=== PATIENT | female | born 2000 | race Caucasian/White ===

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

== ENCOUNTER → 2022-02-23 10:47 | Outpatient (BNVA) | payer SELFPAY | PROVIDERS: PCP Pediatrics | DX: Z29.14 Encounter for prophylactic rabies immune globulin (principal); Z20.3 Contact with and (suspected) exposure to rabies ==

== ENCOUNTER → 2023-10-24 13:08 | Outpatient (BNVA) | payer SELFPAY | PROVIDERS: PCP Pediatrics | DX: Z02.83 Encounter for blood-alcohol and blood-drug test (principal) ==

== ENCOUNTER 2024-05-04 16:04 | Emergency (ER) | payer OTHER, SELFPAY ==
[2024-05-04 16:22] VITALS: BP 154/108; PULSE 115; RESP 22; TEMP 36.9; O2SAT 100; BMI 28.0
--- NOTE | 2024-05-04 16:27 | ECG_ITS ---
Test Reason : chest pain Blood Pressure : */* mmHG Vent. Rate : 95 BPM Atrial Rate : 95 BPM P-R Int : 112 ms QRS Dur : 72 ms QT Int : 346 ms P-R-T Axes : 69 -3 32 degrees QTcB Int : 434 ms Normal sinus rhythm Nonspecific ST abnormality Abnormal ECG When compared with ECG of 06-Jul-2020 11:19, No significant change was found Referred By: Generic ED Physician Electronically Signed By: EMPERATRIZ ROUSE MD
--- NOTE | 2024-05-04 16:37 | PC.NURSE ---
While pt getting blood work mom reports pt has h/o of bipolar and appears manic ?increasing in meds. Pt did denies SI or HI in triage
[2024-05-04 16:47] LABS: MANUAL DIFF FLAG NO
[2024-05-04 16:49] LABS: Basophils Absolute Auto 0.1 X10*3/uL (0.0-0.2); Basophils Percent Auto 0.6 % (0-2); Eosinophils Absolute Auto 0.1 X10*3/uL (0.0-0.4); Eosinophils Percent Auto 0.6 % (0-4); Hematocrit 43.1 % (37.0-47.0); Hemoglobin 15.1 g/dl (12.0-16.0); Imm Gran Abs Auto 0.04 X10*3/uL (0.00-0.03); Imm Gran Pct Auto 0.4 % (0.0-0.4); Lymphocytes Percent Auto 31.3 % (20-40); Mean Corpuscular Hemoglobin 29.2 pg (27.0-33.0); Mean Corpuscular Volume 83.4 fL (80.0-98.0); Mean Platelet Volume 8.8 fL (9.4-12.3); Monocytes Absolute Auto 0.8 X10*3/uL (0.1-1.2); Monocytes Percent Auto 8.1 % (2-11); Neutrophils Absolute Auto 5.6 x10*3/uL (2.0-8.3); Platelet Count 387 X10*3/uL (160-400); Red Blood Count 5.17 X10*6/uL (4.20-5.50); Red Cell Distribution Width 12.3 % (11.0-16.0); White Blood Count 9.6 X10*3/uL (4.8-10.8)
[2024-05-04 16:54] LABS: INTERNATIONAL NORM RATIO 1.1 (0.9-1.1); Prothrombin Time 12.8 SEC (10.9-12.4)
[2024-05-04 17:07] LABS: Anion Gap 15 (12-20); Blood Urea Nitrogen 10 mg/dL (9-16); Calcium 10.2 mg/dL (8.4-10.2); Carbon Dioxide 21 mmol/L (22-29); Chloride 105 mmol/L (96-108); Creatinine Clr Calc Pharmacy 86.6; Estimated Glomerular Filt Rate > 60; Glucose Random 87 mg/dL (60-115); Potassium 3.7 mmol/L (3.3-5.1); Sodium 137 mmol/L (135-145)
[2024-05-04 17:21] LABS: Troponin-I High Sensitivity < 2.7 ng/L (<3.5-17.0)
--- OUTSIDE RECORDS SUMMARY | 2024-05-04 18:54 | XMS_ITS | Clinical Summary ---
Author Organization [facility] ity Address [address] [place] [address] Care Team Providers Care Manager Of Change Name Role Phone Baljit Mccann MD Primary Care Provider [phone] Social History Tobacco Use Types Packs/Day Years Used Date Smoking Tobacco: Never Assessed Comments Unknown Sex and Gender Information Value Date Recorded Sex Assigned at Not on file Legal Sex Female 8:41 PM EST Gender Identity Not on file Sexual Orientation Not on file Plan of Treatment Health Maintenance Due Date Last Done Comments Gonorrhea/Chlamydia Screening 2001 HPV Vaccines (1 - 3-dose series) 2016 Meningococcal B Vacine (1 of 2 - Standard) 2017 DTaP,Tdap,and Td Vaccines (1 - Tdap) 2020 Hepatitis B Vaccines (1 of 3 - 19+ 3-dose series) 2020 Cervical Cancer Screening: P ap Smear 2022 Depression Screening 04/15/2023 HIV Screening 04/15/2023 Hepatitis C Screening 04/15/2023 Social Influencers of Health Screening 04/15/2023 COVID-19 Vaccine ( - 2023-2 5 season) 2023 Influenza Vaccine (#1) 2023 HIB Vaccines Aged Out No longer eligi ble based on patient's age to complete this topic Hepatitis A Vaccines Aged Out No long er eligible based on patient's age to complete this topic IPV Vaccines Aged Out No longer eligi ble based on patient's age to complete this topic MMR Vaccines Aged Out No longer eligi ble based on patient's age to complete this topic Meningococcal ACWY Vaccine Aged Out N o longer eligible based on patient's age to complete this topic Pneumococcal Vaccine: Pediat rics (0 to 5 Years) and At-Risk Patients (6 to 64 Years) Aged Out No longer eligible b ased on patient's age to complete this topic RSV Immunization Patients Un igor 20 months Aged Out No longer eligible b ased on patient's age to complete this topic Varicella Vaccines Aged Out No longer eligible based on patient's age to complete this topic Care Teams Manager Of Change Relationship Specialty Start Date End Date Baljit Mccann MD [address] [place] [id number] PCP - General 07/14/22
--- OUTSIDE RECORDS SUMMARY | 2024-05-04 18:54 | XMS_ITS | Clinical Summary ---
Author Organization [facility] Address [address] [place] [address] Care Team Providers Care Health Worker Name Role Phone Unavailable Primary Care Provider Unavailabl e Social History Tobacco Use Types Packs/Day Years Used Date Smoking Tobacco: Never Assessed Sex and Gender Information Value Date Recorded Sex Assigned at Female 05/12/2022 9:53 AM EST Gender Identity Female 05/12/2022 9:53 AM EST Sexual Orientation Not on file Job Start Date Occupation Industry Not on file Not on file Not on file Plan of Treatment Health Maintenance Due Date Last Done Comments Hepatitis B Vaccines (1 of 3 - 3-dose series) 2001 Hepatitis C Screening 2001 COVID-19 Vaccine (#1) 02/05/2002 Depression Screening 2013 Gonorrhea and Chlamydia Screening 2014 Preventative Health Evaluation 08/06/2019 Cervical Cancer Screening (Pap Smear) 2022 DTap / Tdap / Td (7 - Td or Tdap) 12/22/2022 12/22/2012, 07/15/2006, 12/30/2003, Additional history exists Influenza Vaccine (#1) 2023 03/29/2018, 2012 Pneumococcal Vaccine Completed 03/29/2003, 12/01/19 03 RSV Ped < 20 months Aged Out No longe r eligible based on patient's age to complete this topic
== END 2024-05-04 19:37 | disposition left against medical advice (07) ==
PROVIDERS: Physician Assistant; Emergency Provider Emergency Medicine
DX: R07.89 Other chest pain (principal); R06.02 Shortness of breath; Z79.899 Other long term (current) drug therapy
CPT/HCPCS: 36415; 80048; 84484; 85025; 85610; 93005; 99283

== ENCOUNTER → 2024-05-04 16:27 | Outpatient (BNV) | payer SELFPAY | PROVIDERS: Emergency Provider Emergency Medicine; Visit Provider Internal Medicine Cardiovascular Disease | DX: R94.31 Abnormal electrocardiogram [ECG] [EKG] (principal); R07.9 Chest pain, unspecified | CPT/HCPCS: 93010 ==

== ENCOUNTER 2024-05-12 07:51 | Inpatient (IN) | payer OTHER, SELFPAY ==
[2024-05-12 08:03] VITALS: BP 124/80; PULSE 121; O2SAT 98; BMI 26.5
[2024-05-12 08:21] VITALS: BP 149/93; PULSE 125; RESP 20; TEMP 36.5; O2SAT 99
--- NOTE | 2024-05-12 08:34 | ED_ITS ---
HPI - Psych General Chief Complaint: Psychiatric Symptoms Stated Complaint: SEC 12,NON STS BIPOLAR MANIC STATE 4/5D PER EMS Time Seen by Provider: 05/12/24 08:25 Source: patient, EMS, RN notes reviewed and old records reviewed Mode of arrival: EMS Limitations: no limitations History of Present Illness ED Provider: VON MONSIVAIS PA-C HPI Narrative: 23 year old female with pmhx significant for bipolar 2 disorder presents to the ED today via EMS on a section 12 for evaluation of jean. Patient states she is all over the place . Her mother is concerned and therefore called EMS this morning. States she is compliant with all home medications however did not get a chance to take her morning meds today. She denies SI. Admits she occasionally thinks about harming her boyfriend however would only bite his hand . Denies AH/VH/TH. Denies ilicit substance use. Denies etoh consumption. Denies any physical complaints. Related Data Home Medications ?Medication ?Instructions ?Recorded ?Confirmed clonazepam 0.5 mg tablet 0.5 - 1 mg PO DAILY PRN panic 05/12/24 05/12/24 attack lurasidone 60 mg tablet 60 mg PO QAM 05/12/24 05/12/24 Allergies Allergy/AdvReac Type Severity Reaction Status Date / Time No Known Allergies Allergy Verified 05/12/24 08:08 Review of Systems 2 Review of Systems: Yes all other systems are reviewed and are negative PMFSH Past Medical History Attestation statement: The following information was validated with the patient. Source: old records reviewed and nursing notes reviewed Medical History Self-harm Suicide attempt PTSD (post-traumatic stress disorder) Anxiety Depression Social History Social History Household Members: Family Household Members Other:: mom dad brother Housing: House Do you presently have visiting nurse or other home services: No Alcohol intake: current Alcohol intake frequency: holidays/special occasions only Alcohol type: hard liquor Comment: Q 15 safety checks Patient Tobacco Use Status: Never used Tobacco Years Smoked: 3 Smoked in Last 30 Days: No Second Hand Smoke Exposure: No Use of substances other than those prescribed or required for medical reasons: No Substance Use Type: Hallucinogens and Marijuana Advance Directives: No Advance Directives Information Provided: No Patient : No service: No Sexual orientation: Bisexual Physical Exam 2 Vital Signs: Vital Signs: Last Vital Signs Temp 97.9 F 05/12/24 09:18 Pulse 127 H 05/12/24 09:18 Resp 20 05/12/24 08:21 BP 151/84 H 05/12/24 09:18 Pulse Ox 97 05/12/24 09:18 O2 Del Method Room Air 05/12/24 09:18 BMI result Body Mass Index 26.5 hypertensive, tachycardic General: appears manic, pacing around the behavioral unit Skin: Warm, dry, intact. No rashes or lesions. Head: Normocephalic, atraumatic. EENT: Hearing is intact b/l. Conjunctiva clear. PERRLA. EOM intact. Moist mucous membranes.? Cardiac: Chest wall symmetric. RRR Lungs: Normal respiratory effort without accessory muscle use. CTA bilaterally. Abdomen: Soft, non-tender, non-distended Back: No midline spinous or paraspinal tenderness. No step off deformity. Ext: Upper and lower extremities atraumatic, without tenderness, deformity, swelling or erythema Neuro: AOx3. CN 2-12 grossly intact. Ambulating with steady gait. Psych: labile affect Course Course Course Narrative: 0950 -- CBC without leukocytosis or left shift. No anemia. H&H stable. Chemistry without acute electrolyte abnormality requiring intervention. no kay. liver function at baseline. Urine with trace leukocytes, 3-5 squamous epithelial cells, trace bacteria. Negative nitrites. Patient does not endorse any urinary symptoms. Will await culture for treatment. Urine negative. Urine toxicology positive for THC, otherwise negative. Undetectable salicylates, acetaminophen and ethanol. > medicated with 1mg of Klonopin on arrival > at this point, patient is medically cleared. placed in physician observation. care team evaluation pending. 1231 -- I spoke with amy from care team. patient will be inpatient bed search for acute manic episode. Medications Administered Discontinued Medications Generic Name Dose Route Start Last Admin Trade Name Freq PRN Reason Stop Dose Admin Clonazepam 1 mg 05/12/24 08:35 05/12/24 08:41 Clonazepam 1 Mg Tablet PO 05/12/24 08:36 1 mg ONCE ONE Administration Clonazepam 0.5 mg 05/12/24 12:19 05/12/24 12:22 Clonazepam 0.5 Mg Tablet PO 05/12/24 12:20 0.5 mg ONCE ONE Administration Medical Decision Making Medical Decision Making [facility] Narrative: 23 year old female with pmhx significant for bipolar 2 disorder, PTSD, anxiety, depression presents to the ED today via EMS on a section 12 for evaluation of jean. patient is hypertensive and tachycardic. she is manic appearing, pacing around the behavioral pod. labile affect. exam otherwise benign. Differential diagnosis includes anemia, electrolyte abnormality, urinary tract infection, jean, bipolar disorder, medication not compliance Plan for medical clearance and care team evaluation. Differential Diagnosis Differential Diagnoses: The differential diagnosis associated with the presentation includes as above. Admission/Observation Consideration of admission/observation: Escalation of care including admission/observation considered Lab Data [facility] Lab Attestation statement: I reviewed the patient's lab results. as above. 05/12/24 09:33 05/12/24 09:33 Labs: Lab Results 05/12/24 05/12/24 Range/Units 08:28 09:33 WBC 10.8 (4.8-10.8) X10*3/uL RBC 4.99 (4.20-5.50) X10*6/uL Hgb 14.8 (12.0-16.0) g/dl Hct 41.8 (37.0-47.0) % MCV 83.8 (80.0-98.0) fL MCH 29.7 (27.0-33.0) pg MCHC 35.4 H (31.0-35.0) g/dl RDW 12.2 (11.0-16.0) % Plt Count 356 (160-400) X10*3/uL MPV 8.9 L (9.4-12.3) fL Immature Gran % (Auto) 0.5 H (0.0-0.4) % Neut % (Auto) 71.6 (45-73) % Lymph % (Auto) 20.6 (20-40) % Bradford % (Auto) 6.3 (2-11) % Eos % (Auto) 0.4 (0-4) % Baso % (Auto) 0.6 (0-2) % Lymph # (Auto) 2.2 (1.2-4.9) X10*3/uL Bradford # (Auto) 0.7 (0.1-1.2) X10*3/uL Eos # (Auto) 0.0 (0.0-0.4) X10*3/uL Baso # (Auto) 0.1 (0.0-0.2) X10*3/uL Abs Immat Gran (auto) 0.05 H (0.00-0.03) X10*3/uL Absolute Neuts (auto) 7.8 (2.0-8.3) x10*3/uL Absolute Nucleated RBC 0.000 (0.0-0.012) X10*3/uL Nucleated RBC % (auto) 0.0 (0.0-0.2) /100WBC Sodium 139 (135-145) mmol/L Potassium 3.8 (3.3-5.1) mmol/L Chloride 108 (96-108) mmol/L Carbon Dioxide 21 L (22-29) mmol/L Anion Gap 14 (12-20) BUN 9 (9-16) mg/dL Creatinine 0.91 (0.5-1.4) mg/dL Estim Creat Clear Calc 86.3 Estimated GFR > 60 Random Glucose 88 (60-115) mg/dL Calcium 9.7 (8.4-10.2) mg/dL Total Bilirubin 0.5 (0.0-1.0) mg/dL AST 33 H (5-31) U/L ALT 22 (0-31) U/L Alkaline Phosphatase 83 (39-117) U/L Total Protein 7.9 (6.5-8.0) g/dL Albumin 4.9 (3.5-5.0) g/dL Urine Color Yellow Urine Appearance Clear Urine pH 6.0 (5.0-9.0) Ur Specific Buchanan 1.020 (1.005-1.025) Urine Protein Negative (Neg-Trace) mg/dL Urine Glucose (UA) Negative (Negative) mg/dL Urine Ketones 40 (Negative) mg/dL Urine Blood Negative (Negative) Urine Nitrite Negative (Negative) Ur Leukocyte Esterase Trace H (Negative) Urine RBC 0-2 (0-2) /HPF Urine WBC 0-5 (0-5) /HPF Ur Squamous Epith Cells 3-5 (0-2) /HPF Urine Bacteria Trace (None Seen) Hyaline Casts 0-2 (0-2) /LPF Urine Test NEGATIVE (NEGATIVE) Salicylates < 5.0 L (15-30) mg/dL Urine Opiates Screen Not Detected (Not Detect) Ur Buprenorphine Scrn Not Detected (Not Detect) ng/mL Ur Oxycodone Screen Not Detected (Not Detect) ng/mL Urine Methadone Screen Not Detected (Not Detect) ng/mL Urine Fentanyl Screen Not Detected (Not Detect) Acetaminophen < 3 (<30) mcg/mL Ur Barbiturates Screen Not Detected (Not Detect) Ur Phencyclidine Scrn Not Detected (Not Detect) Ur Amphetamines Screen Not Detected (Not Detect) U Benzodiazepines Scrn Not Detected (Not Detect) Urine Cocaine Screen Not Detected (Not Detect) U Marijuana (THC) Screen POSITIVE H (Not Detect) Ethyl Alcohol < 10 mg/dL Independent Historian Clinical information obtained from an independent historian. History obtained from or confirmed by: EMS External Record Review External record reviewed: Inpatient record Chronic Conditions Patient?s care impacted by: Other (bipolar 1, ptsd, anxiety, depression) Social Determinants Patient?s care significantly limited by Social Determinants of Health including: Other Social Determinant of Health Critical Care Time Critical Care Time Critical Care Time: No Discharge Plan Discharge Clinical Impression: Bipolar I disorder with jean Patient Disposition: Still a Patient Prescriptions: No Action clonazepam 0.5 mg tablet 0.5 - 1 mg PO DAILY PRN (Reason: panic attack) lurasidone 60 mg tablet 60 mg PO QAM Interventions: [place]-Suicide Risk Severity Scale Last Done: 05/12/24 08:21 Print Language: Georgian
[2024-05-12 08:37] LABS: UPreg QC Valid YES
[2024-05-12 08:39] LABS: Appearance Urine Clear; Color Urine Yellow; Glucose Urine UA Negative (Negative); Leukocyte Esterase Urine Trace (Negative); Nitrite Urine Negative (Negative); UMIC TRIGGER UACC YES; Urine Blood Negative (Negative); Urine Ketones 40 mg/dL (Negative); Urine Pregnancy NEGATIVE (NEGATIVE); Urine Protein Negative (Neg-Trace)
[2024-05-12 08:41] LABS: Bacteria Urine Trace (None Seen); Hyaline Casts Urine 0-2 /LPF (0-2); RBC Urine 0-2 /HPF (0-2); WBC Urine 0-5 /HPF (0-5)
[2024-05-12] MEDS: clonazePAM 1 MG TABLET PO (08:41)
--- NOTE | 2024-05-12 08:43 | PC.NURSE ---
Patient has come into ED by EMS on section 12 from [facility]. She appears in a manic state, she is hyperverbal, poor boundaries, and pacing. She is compliant with requests, is showing tachycardia. Patient reports she takes Klonopin for sleep. PA ordered Klonopin and patient took willingly. Patient is pacing around, going into rooms. Patient is easily redirectable verbally. Patient is aware of plan of care for blood work and care team evaluation. Patient said I want to kill my boyfriend sometimes ugh I just want to squeeze him. And Patient also stated They are testing my rubix cube for cocaine . Thought process appears non linear at this time. She denies SI /AH/VH.
--- OUTSIDE RECORDS SUMMARY | 2024-05-12 08:44 | XMS_ITS | Patient Health Record ---
Author Organization [facility] Address [address] [place] [id number] Care Team Providers Care Restaurant Front Manager Name Role Phone Simran Pierre ND Unavailable [phone] Allergies Allergen (clinical drug ingredient) Drug/Non Drug Allergy documented on EMR Reaction Allergy Type Onset Date Status lactose Lactose (Intolerance) Unknown Drug Allergy Active Reason For Referral No Information Medications Medication SIG (Take, Route, Frequency, Duration) Notes Start Date End Date Status Lexapro 10 MG 1 tablet Orally Once a day Not-Taking Wellbutrin XL 300 MG 1 tablet in the mor juan Orally Once a day Active Spironolactone 25 MG 1 tablet Orally Active OLANZapine 5 MG 1 tablet Orally Once a day Not-Taking Nexplanon 68 MG as directed Subcutaneous Active Abilify 10 MG 1 tablet Orally Once a day 7mg Active Immunizations Vaccine Route Administration Date Status Comme nts Moderna Covid-19 Vaccine Unknown 07/19/2020 Administere d Moderna Covid-19 Vaccine Unknown 08/16/2020 Administere d Problems Problem Type SNOMED Code ICD Code Onset Dates Problem Status W/U Status Risk Notes Problem Vitamin D deficiency (85662983) Vitamin D deficiency, unspecified (E55.9) Active confirmed Problem Depressed bipolar I disorder (35872286) Bipolar disorder, current episode depressed, mild or moderate severity, unspecified (F31.30) Active confirmed Problem Anxiety disorder (871507401) Other specified anxiety disorders (F41.8) Active confirmed Problem Insomnia disorder 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 disorder (72732165) Insomnia due to other mental disorder (F51.05) Active confirmed Problem Episodic tension-type headache (963331011) Episodic tension-type headache, intractable (G44.211) Active confirmed Problem Seasonal allergic rhinitis (644245172) Other seasonal allergic rhinitis (J30.2) Active confirmed Problem Nausea (030580484) Nausea (R11.0) Active confirmed Problem Pain (40460585) Pain, unspecified (R52) Active confirmed Problem Fatigue (20243283) Other fatigue (R53.83) Active confirmed Problem C-reactive protein abnormal (637452298) Elevated C-reactive protein (CRP) (R79.82) Active confirmed Plan Of Treatment Pending Test Test Name Order Date C-REACTIVE PROTEIN 04/27/2021 CARDIO IQ(TM) VITAMIN D, 25 HYDROXY, LC/ MS/MS 04/27/2021 Insurance Providers Payer Name Payer Address Payer Phone Subscriber Number Group Number Insured Name Patient Relationship to Insured Coverage Start Date Coverage End Date [employer] [address] [place] [address] [phone] [id number] Fior Bender Self - patient is the insured Medications Administered Medication Instructions Date of Administration Dosage Notes B Complex 10/01/2020 100 mg B Complex 10/17/2020 100 mg B Complex 11/05/2020 100 mg B Complex 10/02/2021 100 mg B Complex 10/08/2022 100 mg Magnesium Chloride 10/01/2020 600 mg Magnesium Chloride 10/17/2020 600 mg Magnesium Chloride 11/05/2020 600 mg NAD+ 10/02/2021 100 mg NAD+ 10/08/2022 100 mg Poly MVA 11/19/2020 5 mL Poly MVA 12/24/2020 5 mL Poly MVA 01/07/2021 10 mL Poly MVA 01/28/2021 10 mL Poly MVA 02/11/2021 10 mL Poly MVA 02/27/2021 10 mL Poly MVA 04/01/2021 10 mL Poly MVA 05/13/2021 10 mL Poly MVA 07/08/2021 10 mL Vitamin C 09/26/2020 15 g Medical (General) History Medical History History ICD Code Bipolar Anxiety/Depression PTSD Hospitalization History Reason Date(Month/Year) hospitaliztion for manic episode 06/2020
--- OUTSIDE RECORDS SUMMARY | 2024-05-12 08:44 | XMS_ITS | Clinical Summary ---
Author Organization [employer] [facility] Address [address] [place] [address] Care Team Providers Care Edge Sawyer Name Role Phone Unavailable Primary Care Provider [...]
--- OUTSIDE RECORDS SUMMARY | 2024-05-12 08:44 | XMS_ITS | Clinical Summary ---
Author Organization [facility] Address [address] [place] [address] Care Team Providers Care Metal Cut Off Saw Operator Name Role Phone Baljit Mccann MD Primary Care Provider [phone] Social History Tobacco Use Types Packs/Day Years [...] age to complete this topic Care Teams Metal Cut Off Saw Operator Relationship Specialty Start Date End Date Baljit Mccann MD [address] [place] [id number] PCP - General 07/14/22
[2024-05-12 08:48] LABS: Amphetamine Screen Urine Not Detected (Not Detect); Barbiturates, Urine Not Detected (Not Detect); Benzodiazepines Screen Urine Not Detected (Not Detect); Buprenorphine Scr Not Detected (Not Detect); Cannabinoid Screen Urine POSITIVE (Not Detect); Cocaine Screen Urine Not Detected (Not Detect); Fentanyl, urine Not Detected (Not Detect); Methadone Screen, Urine Not Detected (Not Detect); Opiate Screen Urine Not Detected (Not Detect); Oxycodone Screen Urine Not Detected (Not Detect); Phencyclidine Screen Urine Not Detected (Not Detect)
[2024-05-12 09:18] VITALS: BP 151/84; PULSE 127; TEMP 36.6; O2SAT 97
--- NOTE | 2024-05-12 09:28 | PC.NURSE ---
Pts med rec completed with medical record hx, patient and parent recollection
[2024-05-12 09:37] LABS: MANUAL DIFF FLAG NO
[2024-05-12 09:38] LABS: Basophils Absolute Auto 0.1 X10*3/uL (0.0-0.2); Basophils Percent Auto 0.6 % (0-2); Eosinophils Percent Auto 0.4 % (0-4); Hematocrit 41.8 % (37.0-47.0); Hemoglobin 14.8 g/dl (12.0-16.0); Imm Gran Abs Auto 0.05 X10*3/uL (0.00-0.03); Imm Gran Pct Auto 0.5 % (0.0-0.4); Lymphocytes Absolute Auto 2.2 X10*3/uL (1.2-4.9); Lymphocytes Percent Auto 20.6 % (20-40); Mean Corpuscular HGB Conc 35.4 g/dl (31.0-35.0); Mean Corpuscular Hemoglobin 29.7 pg (27.0-33.0); Mean Corpuscular Volume 83.8 fL (80.0-98.0); Mean Platelet Volume 8.9 fL (9.4-12.3); Monocytes Absolute Auto 0.7 X10*3/uL (0.1-1.2); Monocytes Percent Auto 6.3 % (2-11); Neutrophils Absolute Auto 7.8 x10*3/uL (2.0-8.3); Neutrophils Percent Auto 71.6 % (45-73); Platelet Count 356 X10*3/uL (160-400); Red Blood Count 4.99 X10*6/uL (4.20-5.50); Red Cell Distribution Width 12.2 % (11.0-16.0); White Blood Count 10.8 X10*3/uL (4.8-10.8)
--- NOTE | 2024-05-12 09:41 | PC.NURSE ---
Patient has calmed down after listening to music provided and coloring in room. No apparent stresses. Was agreeable for blood drawn and now pending care team.
[2024-05-12 09:55] LABS: Acetaminophen LAB < 3 mcg/mL (<30); Alanine Aminotransferase 22 U/L (0-31); Albumin Level 4.9 g/dL (3.5-5.0); Alkaline Phosphatase 83 U/L (39-117); Anion Gap 14 (12-20); Aspartate Amino Transferase 33 U/L (5-31); Bilirubin Total 0.5 mg/dL (0.0-1.0); Blood Urea Nitrogen 9 mg/dL (9-16); Calcium 9.7 mg/dL (8.4-10.2); Carbon Dioxide 21 mmol/L (22-29); Chloride 108 mmol/L (96-108); Creatinine Clr Calc Pharmacy 86.3; Estimated Glomerular Filt Rate > 60; Ethanol < 10 mg/dL; Glucose Random 88 mg/dL (60-115); Potassium 3.8 mmol/L (3.3-5.1); Salicylate < 5.0 mg/dL (15-30); Sodium 139 mmol/L (135-145); Total Protein 7.9 g/dL (6.5-8.0)
--- NOTE | 2024-05-12 10:35 | PC.NURSE ---
Patient has very labile affect, patient appears to be happy then appears to be crying the next minute.
[2024-05-12] MEDS: clonazePAM 0.5 MG TABLET PO (12:22)
--- NOTE | 2024-05-12 12:25 | PC.NURSE ---
Patient appears to be frustrated with mom on phone. Triggered a emotional response. Patient is frustrated that they are still in ER. Patient provided with 0.5mg Klonopin PO.
--- NOTE | 2024-05-12 12:30 | PC.NURSE ---
Phone numbers for patient: Mom: [phone] Dad: [phone]
--- NOTE | 2024-05-12 16:36 | PC.NURSE ---
Patient accidently walked into a patient using the bathroom, patient is struggling to maintain boundaries, asking to use the bathroom with other patients, asking to share items with people and invading personal space. Prakash offered, patient refused
[2024-05-12] MEDS: LORazepam 1 MG TABLET 2 MG PO (17:42)
[2024-05-12] MEDS: OLANZapine ODT 10 MG TAB.RAPDIS TRANSLINGU (17:42)
--- NOTE | 2024-05-12 17:47 | PC.NURSE ---
Patient entered another patient's room and proceeded to lay on his bed. SALONI Cruz and SALONI Peters entered the room to tell patient that she could not be laying in someone else's bed. Patient then retorted oh yeah, well who's bed am I in huh? SALONI Peters once again explained that she was in another patient's room and she could not lay in that bed. Pt became verbally agitated, threatening to sabine staff. SALONI Cruz and SALONI Peters proceeded to go hands on to remove patient from the room. Security was called. Patient ambulated back to her room with this RN. DO Kemal aware, verbal order for 10mg PO Zyprexa and 2mg PO Ativan. patient took both medications willingly. Pt encouraged to stay in her room and listen to music to de-escalate herself
[2024-05-12 17:58] VITALS: RESP 16
--- NOTE | 2024-05-12 18:12 | PC.NURSE ---
Pt remains heightened, dad visiting at this time which appears to help her calm down a slight bit
[2024-05-12 20:53] VITALS: BP 101/80; PULSE 75; RESP 16; O2SAT 95
[2024-05-13] MEDS: Nicotine Polacrilex 2 MG GUM BUCCAL ×5 (04:14→21:01)
[2024-05-13] MEDS: OLANZapine ODT 10 MG TAB.RAPDIS TRANSLINGU ×2 (04:44→10:39)
[2024-05-13 05:12] VITALS: BP 139/87; PULSE 110; RESP 17; TEMP 36.6; O2SAT 98
--- NOTE | 2024-05-13 06:57 | PC.NURSE ---
Assumed care of patient at 0645, patient appears to be in no apparent distress this am, sleeping, respirations even and unlabored. Continue plan of care for inpatient bedsearch
--- NOTE | 2024-05-13 08:14 | PHA.MEDREC ---
Pharmacy Consult ? Medication Reconciliation Pharmacy has REVIEWED the medication reconciliation. Claims show welbutrin and spironolactone as well however RNs med rec note shows Pts med rec completed with medical record hx, patient and parent recollection
[2024-05-13] MEDS: Lurasidone HCl 20 MG TABLET 60 MG PO (08:54)
--- NOTE | 2024-05-13 10:36 | PC.NURSE ---
Patient reporting audio and visual hallucinations and requesting medication. Dr. Fontanez aware, requesting that this RN give 10mg Zyprexa sublingually. MD aware that patient received dose this am and last night. Pharmacy contacted by this RN to verify max dosing. Max dose is anywhere between 20-30 mg for optimal results. Plan to give 10mg Zyprexa subligually at this time
[2024-05-13] MEDS: clonazePAM 0.5 MG TABLET PO (11:29)
--- NOTE | 2024-05-13 17:09 | PC.NURSE ---
Patient continues to be intrusive with poor boundaries throughout today. Attempting to invite people to her room, walking into the bathroom with other individuals there
[2024-05-13 19:52] VITALS: BP 139/82; PULSE 106; RESP 20; TEMP 36.7; O2SAT 97
[2024-05-14] MEDS: Nicotine Polacrilex 2 MG GUM BUCCAL ×7 (00:05→21:05)
[2024-05-14] MEDS: OLANZapine ODT 10 MG TAB.RAPDIS TRANSLINGU (00:30)
--- NOTE | 2024-05-14 07:42 | PC.NURSE ---
pt has been in and out of her room, states she will only take 20mg of 60mg latuda and states she does this at home and has not been taking her meds as prescribed, tates she feels good now and does not want to get tired from the meds
--- NOTE | 2024-05-14 07:49 | ECG_ITS ---
Test Reason : r/o qtc Blood Pressure : */* mmHG Vent. Rate : 115 BPM Atrial Rate : 115 BPM P-R Int : 120 ms QRS Dur : 68 ms QT Int : 322 ms P-R-T Axes : 63 28 35 degrees QTcB Int : 445 ms Sinus tachycardia Otherwise normal ECG When compared with ECG of 04-May-2024 16:39, No significant change was found Referred By: Yuri Flaherty Electronically Signed By: MISSY LAM
[2024-05-14 08:07] VITALS: BP 152/88; RESP 18; TEMP 36.6; O2SAT 97
--- NOTE | 2024-05-14 09:38 | MHC.EDTECH ---
Patient stated to this tech that she could hear my boyfriend through the speakers, he speaks to me when I ask questions. RN aware
[2024-05-14] MEDS: clonazePAM 0.5 MG TABLET PO (10:35)
[2024-05-14] MEDS: Lurasidone HCl 20 MG TABLET 60 MG PO ×2 (10:36→10:37)
--- NOTE | 2024-05-14 10:39 | PC.NURSE ---
pt now wants the rest of her latuda and a klonopin as she is feeling anxious. meds were given, pt has been polite and excercised in her room and in the common area, needed to be reminded not to run in the pod but was compliant when redirected
[2024-05-14] MEDS: Nicotine 21 MG PATCH.TD24 TRANSDERMA (14:14)
[2024-05-14] MEDS: Lurasidone HCl 20 MG TABLET PO (15:30)
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
--- NOTE | 2024-05-14 16:15 | PC.NURSE ---
pt has been pacing and occasionally dancing in the pod, listening to music on headphones, frequent requests to staff , some for food or other relevant questions and other times with odd statements fyi the phones may stop working because there are things happening behind the scenes ,pt was agreeable to taking additional dose of latuda
--- NOTE | 2024-05-14 16:17 | MHC.EDTECH ---
Patient asked to speak with this tech privately. In patient room, the patient informed this tech that they were destined to meet Dionicio Robins, and that he was speaking with her through the headphones and his emotions were what was causing the patient to keep asking us to change the playlist. Patient also stated that she felt that she was connected to Dionicio, that they had researched the same things, and he reached the conclusion of what needed to be done before she did, and that everyone loved him now. RN aware of conversation.
[2024-05-14 17:33] VITALS: BP 116/67; PULSE 93; RESP 14; TEMP 36.1; O2SAT 98
--- NOTE | 2024-05-14 18:32 | PC.NURSE ---
pt has been sleeping for the past 1 hour, skin wpd resp even and unlabored
[2024-05-14] MEDS: clonazePAM 1 MG TABLET PO (20:10)
--- NOTE | 2024-05-14 22:39 | PC.NURSE ---
Paitent out in hallway dancing like a ballerina. Calm and cooperative at this time. Redirectable at this time
--- NOTE | 2024-05-14 23:15 | PC.NURSE ---
patient appears to remain at rest presently respirations are even and unlabored patient appears in no distress.
[2024-05-15] MEDS: Acetaminophen 325 MG TABLET 650 MG PO (01:43)
--- NOTE | 2024-05-15 02:20 | PC.NURSE ---
intrusive, testing limits periodically
[2024-05-15] MEDS: Melatonin 3 MG TABLET 9 MG PO (02:22)
[2024-05-15] MEDS: diphenhydrAMINE HCL 25 MG CAPSULE 50 MG PO (02:22)
[2024-05-15 02:49] VITALS: BP 135/94; PULSE 102; RESP 17; TEMP 37.1; O2SAT 98
--- NOTE | 2024-05-15 04:37 | PC.NURSE ---
patient having difficulty with limit setting, frequently wanting items to seemingly keep self busy howver often playing music loudly not for soothing... trying to communicate with staff so we are all sending the same message about not overstimulating client.
--- NOTE | 2024-05-15 05:18 | PC.NURSE ---
client coming out of room every 10 minutes or so asking for miscellaneous things.
--- NOTE | 2024-05-15 06:03 | PC.NURSE ---
pressured speech but redirectable
--- NOTE | 2024-05-15 07:26 | PC.NURSE ---
Assumed care of patient at 0645, patient appears to be in no apparent distress this am, calm and cooperative, ambulating with steady gait around BH pod, frequently asking questions. Continue plan of care for IPLOC
[2024-05-15] MEDS: Lurasidone HCl 80 MG TABLET PO (08:18)
[2024-05-15] MEDS: Nicotine Polacrilex 2 MG GUM BUCCAL (09:05)
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
[2024-05-15] MEDS: Nicotine Polacrilex 2 MG GUM 4 MG BUCCAL ×2 (13:41→23:02)
[2024-05-15 14:25] LABS: Alanine Aminotransferase 32 U/L (0-31); Albumin Level 4.9 g/dL (3.5-5.0); Alkaline Phosphatase 82 U/L (39-117); Anion Gap 13 (12-20); Aspartate Amino Transferase 46 U/L (5-31); Bilirubin Total 0.6 mg/dL (0.0-1.0); Blood Urea Nitrogen 7 mg/dL (9-16); Carbon Dioxide 26 mmol/L (22-29); Chloride 107 mmol/L (96-108); Creatinine Clr Calc Pharmacy 98.1; Estimated Glomerular Filt Rate > 60; Glucose Random 94 mg/dL (60-115); Sodium 142 mmol/L (135-145)
[2024-05-15] MEDS: clonazePAM 0.5 MG TABLET PO (15:25)
[2024-05-15] MEDS: Flu Vacc TS2024-25(6mos up)/PF 0.5 ML SYRINGE IM (15:25)
[2024-05-15] MEDS: Nicotine 21 MG PATCH.TD24 TRANSDERMA (15:25)
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
--- NOTE | 2024-05-15 17:58 | PC.NURSE ---
Addendum entered by Iris Brown RN 05/15/24 18:13: RN approached pt and informed her she would need to wear clothes while out in the milieu, pt verbalized understanding. Pt began hyperventilating while in her room and stated I think I'm in the wrong room, I need to get out of here. RN reassured pt she was in the correct room. RN provided pt with an ice pack and notified provider who placed orders for additional PRN medication. Original Note: pt placed on 5 minute checks after being found in another empty patient's room without clothes on
[2024-05-15] MEDS: Calcium Carbonate 750 MG TAB.CHEW PO (18:20)
[2024-05-15] MEDS: risperiDONE 1 MG TABLET PO (18:20)
[2024-05-15 20:00] VITALS: BP 137/78; PULSE 114; RESP 16; TEMP 36.8; O2SAT 99
[2024-05-15] MEDS: clonazePAM 1 MG TABLET PO (21:52)
[2024-05-16] MEDS: Acetaminophen 325 MG TABLET 650 MG PO (03:15)
[2024-05-16] MEDS: Nicotine Polacrilex 2 MG GUM 4 MG BUCCAL ×3 (04:49→23:25)
[2024-05-16] MEDS: clonazePAM 1 MG TABLET PO ×3 (08:17→22:40)
[2024-05-16] MEDS: Lurasidone HCl 80 MG TABLET PO (08:17)
[2024-05-16] MEDS: Nicotine 21 MG PATCH.TD24 TRANSDERMA (08:18)
[2024-05-16] MEDS: Fluticasone Propionate Nasal 16 GM SPRAY 1 SPRAY NOSTRIL-B (08:18)
[2024-05-16 08:33] VITALS: BP 122/88; PULSE 131; RESP 18; TEMP 36.3; O2SAT 100
--- NOTE | 2024-05-16 09:33 | P.PNPSI_ITS ---
Subjective Subjective Date of Service: 05/16/24 Reason For Visit: Crisis Subjective Notes: Conditional Voluntary Interim History: delusional. grandiose. +AH. +VH. denies SI/HI. Active on unit. medication compliant. Per nursing, slept 3 hours last night. Pt stated, I feel good. Bradly and Dionicio are leaving me gifts. They are the same person. He leaves me food mostly. I asked him to play music and he flushed the toilet. We talk telepathically . When asked why she was walking around the unit without clothes on last evening; pt stated, I was trying to hard to not be naked. I was following Lucifier from room to room. He knows my purpose is healing . Pt denies side effects from medications. Medication Compliance: Yes Side effects from medications: No Mental Status Exam Mental Status Exam Narrative: Pt is alert and oriented; behavior is cooperative, friendly; dressed in casual attire; mood is described as great ; eye contact appropriate; Speech is normal rate, volume, pressured; grandiose, delusional, racing thoughts, logical at times; denies SI/HI. +AH, +VH. Diagnostics Vital Signs (24Hr): Vital Signs - 24 hr 05/15/24 20:00 05/16/24 08:33 Temperature 98.2 F 97.4 F Pulse Rate 114 H 131 H Respiratory Rate 16 18 Blood Pressure 137/78 122/88 Pulse Oximetry 99 100 Oxygen Delivery Method Room Air Room Air BMI result Body Mass Index 26.5 Labs 05/12/24 09:33 05/15/24 13:53 Labs: Laboratory Results - last 48 hr 05/15/24 13:53 Sodium 142 Potassium 4.0 Chloride 107 Carbon Dioxide 26 Anion Gap 13 BUN 7 L Creatinine 0.80 Estim Creat Clear Calc 98.1 Estimated GFR > 60 Random Glucose 94 Calcium 10.0 Total Bilirubin 0.6 AST 46 H ALT 32 H Alkaline Phosphatase 82 Total Protein 8.0 Albumin 4.9 Medications Medications Current Medications Acetaminophen (Acetaminophen 325 Mg Tablet) 650 mg PO Q6H PRN PRN Reason: Headache/Pain, Scale 1-10 Last Admin: 05/16/24 03:15 Dose: 650 mg Al Hydroxide/Mg Hydroxide (Magnesium Hydrox/Alum Hydrox 30 Ml Oral.Susp) 30 ml PO Q6H PRN PRN Reason: Heartburn/Nausea Albuterol Sulfate (Albuterol Sulfate 90 Mcg 8 Gm Inhaler) 1 puff INHALE RQ6H PRN PRN Reason: Shortness of Breath Calcium Carbonate (Calcium Carbonate 750 Mg Tab.Chew) 750 mg PO Q6H PRN PRN Reason: Heartburn Last Admin: 05/15/24 18:20 Dose: 750 mg Clonazepam (Clonazepam 1 Mg Tablet) 1 mg PO TID [facility] Last Admin: 05/16/24 08:17 Dose: 1 mg Fluticasone Propionate (Fluticasone Propionate Nasal 16 Gm [place]) 1 spray NOSTRIL-B DAILY [facility] Last Admin: 05/16/24 08:18 Dose: 1 spray Hydroxyzine HCl (Hydroxyzine Hcl 25 Mg Tablet) 25 mg PO Q6H PRN PRN Reason: mild anxiety Lurasidone HCl (Lurasidone Hcl 80 Mg Tablet) 80 mg PO DAILY [facility] Last Admin: 05/16/24 08:17 Dose: 80 mg Magnesium Hydroxide (Milk Of Magnesia 30 Ml Oral.Susp) 30 ml PO DAILY PRN PRN Reason: Constipation Nicotine (Nicotine 21 Mg Patch.Td24) 21 mg TRANSDERMA DAILY [facility] Last Admin: 05/16/24 08:18 Dose: 21 mg Nicotine Polacrilex (Nicotine Polacrilex 2 Mg Gum) 4 mg BUCCAL Q2H PRN PRN Reason: Nicotine Cravings Last Admin: 05/16/24 04:49 Dose: 4 mg Risperidone (Risperidone 1 Mg Tablet) 1 mg PO BID PRN PRN Reason: Psychosis Last Admin: 05/15/24 18:20 Dose: 1 mg Trazodone HCl (Trazodone Hcl 50 Mg Tablet) 50 mg PO BEDTIME MRX1 PRN PRN Reason: Insomnia Allergies Allergies Allergy/AdvReac Type Severity Reaction Status Date / Time lithium AdvReac Intermediate tremors Uncoded 05/14/24 16:39 olanzapine AdvReac Intermediate ortho hotn Uncoded 05/14/24 16:39 Assessment & Plan Assessment & Plan (1) Bipolar I disorder with jean: Status: Acute Code(s): F31.10 - Bipolar disorder, current episode manic without psychotic features, unspecified (2) PTSD (post-traumatic stress disorder): Status: Acute Code(s): F43.10 - Post-traumatic stress disorder, unspecified Plan Patient patient is a 23-year-old female with history of bipolar disorder and PTSD who presented to ER via section 12 due to manic behavior secondary to increased marijuana use. Plan: CV 15 minutes safety check Continue home medications Obtain collateral Encourage groups Discharge planning 05/16: delusional. grandiose. +AH. +VH. denies SI/HI. Active on unit. medication compliant. Per nursing, slept 3 hours last night. Pt stated, I feel good. Bradly and Dionicio are leaving me gifts. They are the same person. He leaves me food mostly. I asked him to play music and he flushed the toilet. We talk telepathically . When asked why she was walking around the unit without clothes on last evening; pt stated, I was trying to hard to not be naked. I was following Lucifier from room to room. He knows my purpose is healing . Pt denies side effects from medications. Start: Depakote 250mg PO BID Patient educated on: diagnosis and medication risk/benefits Reason for continued inpatient stay Substantial Risk for: med/psych decompensation Time Spent With Patient Time: Total time managing care of this patient today _20___ minutes.
[2024-05-16] MEDS: risperiDONE 1 MG TABLET PO (10:40)
[2024-05-16] MEDS: hydrOXYzine HCL 25 MG TABLET PO (10:41)
[2024-05-16] MEDS: Divalproex Sodium 250 MG TABLET.DR PO ×2 (14:40→22:40)
--- NOTE | 2024-05-16 15:10 | MHC.CLN ---
NUTRITION CONSULT FOR REPORTED WEIGHT LOSS. PATIENT REPORTS THAT SHE LIKES TO SNACK THROUGHOUT THE DAY. AWARE OF KITCHEN ON UNIT AND THAT CAN GET SNACKS THERE. NO REPORTED CONCERNS WITH CURRENT APPETITE. NO NEW NUTRITION INTERVENTIONS.
[2024-05-16 20:00] VITALS: BP 124/74; PULSE 120; RESP 16; TEMP 36.6; O2SAT 100
[2024-05-16] MEDS: Calcium Carbonate 750 MG TAB.CHEW PO (23:52)
[2024-05-17] MEDS: hydrOXYzine HCL 25 MG TABLET PO (03:24)
[2024-05-17] MEDS: Magnesium Hydrox/Alum Hydrox 30 ML ORAL.SUSP PO (03:24)
[2024-05-17] MEDS: Nicotine Polacrilex 2 MG GUM 4 MG BUCCAL ×3 (03:24→16:01)
--- NOTE | 2024-05-17 03:26 | PC.NURSE ---
Fior reported mild nausea and slight upset stomach with mild anxiety. Was given Maalox and Atarax PO prn
[2024-05-17 07:00] VITALS: BMI 28.9
[2024-05-17 07:57] VITALS: BP 133/87; PULSE 138; RESP 16; TEMP 36.4; O2SAT 98
[2024-05-17] MEDS: clonazePAM 1 MG TABLET PO ×3 (08:39→20:02)
[2024-05-17] MEDS: Lurasidone HCl 80 MG TABLET PO (08:39)
[2024-05-17] MEDS: Divalproex Sodium 250 MG TABLET.DR PO ×2 (08:39→20:02)
[2024-05-17] MEDS: Nicotine 21 MG PATCH.TD24 TRANSDERMA (08:41)
--- NOTE | 2024-05-17 09:21 | HO.PSYCHPN ---
Subjective Subjective Date of Service: 05/17/24 Reason For Visit: Crisis Subjective Notes: Conditional Voluntary Interim History: Pt continues similar to yesterday. delusional. grandiose. +AH. +VH. denies SI/HI. Per nursing, slept 6 hours last night. placed on 1:1 safety checks yesterday d/t disorganized behavior. Pt stated, It's so weird that my room is next door to [facility]. The [place] wedding ceremony is confusing . medication compliant. Medication Compliance: Yes Side effects from medications: No Mental Status Exam Mental Status Exam Narrative: Pt is alert and oriented; behavior is cooperative, friendly; dressed in casual attire; mood is described as great ; eye contact appropriate; Speech is normal rate, volume, pressured; grandiose, delusional, racing thoughts, logical at times; denies SI/HI. +AH, +VH. Diagnostics Vital Signs (24Hr): Vital Signs - 24 hr 05/16/24 20:00 05/17/24 07:57 Temperature 98 F 97.5 F Pulse Rate 120 H 138 H Respiratory Rate 16 16 Blood Pressure 124/74 133/87 Pulse Oximetry 100 98 Oxygen Delivery Method Room Air Room Air BMI result Body Mass Index 28.9 Labs 05/12/24 09:33 05/15/24 13:53 Labs: Laboratory Results - last 48 hr 05/15/24 13:53 Sodium 142 Potassium 4.0 Chloride 107 Carbon Dioxide 26 Anion Gap 13 BUN 7 L Creatinine 0.80 Estim Creat Clear Calc 98.1 Estimated GFR > 60 Random Glucose 94 Calcium 10.0 Total Bilirubin 0.6 AST 46 H ALT 32 H Alkaline Phosphatase 82 Total Protein 8.0 Albumin 4.9 Medications Medications Current Medications Acetaminophen (Acetaminophen 325 Mg Tablet) 650 mg PO Q6H PRN PRN Reason: Headache/Pain, Scale 1-10 Last Admin: 05/16/24 03:15 Dose: 650 mg Al Hydroxide/Mg Hydroxide (Magnesium Hydrox/Alum Hydrox 30 Ml Oral.Susp) 30 ml PO Q6H PRN PRN Reason: Heartburn/Nausea Last Admin: 05/17/24 03:24 Dose: 30 ml Albuterol Sulfate (Albuterol Sulfate 90 Mcg 8 Gm Inhaler) 1 puff INHALE RQ6H PRN PRN Reason: Shortness of Breath Calcium Carbonate (Calcium Carbonate 750 Mg Tab.Chew) 750 mg PO Q6H PRN PRN Reason: Heartburn Last Admin: 05/16/24 23:52 Dose: 750 mg Clonazepam (Clonazepam 1 Mg Tablet) 1 mg PO TID [facility] Last Admin: 05/17/24 08:39 Dose: 1 mg Divalproex Sodium (Divalproex Sodium 250 Mg Tablet.Dr) 250 mg PO BID [facility] Last Admin: 05/17/24 08:39 Dose: 250 mg Fluticasone Propionate (Fluticasone Propionate Nasal 16 Gm [place]) 1 spray NOSTRIL-B DAILY [facility] Last Admin: 05/16/24 08:18 Dose: 1 spray Hydroxyzine HCl (Hydroxyzine Hcl 25 Mg Tablet) 25 mg PO Q6H PRN PRN Reason: mild anxiety Last Admin: 05/17/24 03:24 Dose: 25 mg Lurasidone HCl (Lurasidone Hcl 80 Mg Tablet) 80 mg PO DAILY [facility] Last Admin: 05/17/24 08:39 Dose: 80 mg Magnesium Hydroxide (Milk Of Magnesia 30 Ml Oral.Susp) 30 ml PO DAILY PRN PRN Reason: Constipation Nicotine (Nicotine 21 Mg Patch.Td24) 21 mg TRANSDERMA DAILY [facility] Last Admin: 05/17/24 08:41 Dose: 21 mg Nicotine Polacrilex (Nicotine Polacrilex 2 Mg Gum) 4 mg BUCCAL Q2H PRN PRN Reason: Nicotine Cravings Last Admin: 05/17/24 03:24 Dose: 4 mg Risperidone (Risperidone 1 Mg Tablet) 1 mg PO BID PRN PRN Reason: Psychosis Last Admin: 05/16/24 10:40 Dose: 1 mg Trazodone HCl (Trazodone Hcl 50 Mg Tablet) 50 mg PO BEDTIME MRX1 PRN PRN Reason: Insomnia Allergies Allergies Allergy/AdvReac Type Severity Reaction Status Date / Time lithium AdvReac Intermediate tremors Uncoded 05/14/24 16:39 olanzapine AdvReac Intermediate ortho hotn Uncoded 05/14/24 16:39 Assessment & Plan Assessment & Plan (1) Bipolar I disorder with jean: Status: Acute Code(s): F31.10 - Bipolar disorder, current episode manic without psychotic features, unspecified (2) PTSD (post-traumatic stress disorder): Status: Acute Code(s): F43.10 - Post-traumatic stress disorder, unspecified Plan Patient patient is a 23-year-old female with history of bipolar disorder and PTSD who presented to ER via section 12 due to manic behavior secondary to increased marijuana use. Plan: CV 15 minutes safety check Continue home medications Obtain collateral Encourage groups Discharge planning 05/16: delusional. grandiose. +AH. +VH. denies SI/HI. Active on unit. medication compliant. Per nursing, slept 3 hours last night. Pt stated, I feel good. Bradly and Dionicio are leaving me gifts. They are the same person. He leaves me food mostly. I asked him to play music and he flushed the toilet. We talk telepathically . When asked why she was walking around the unit without clothes on last evening; pt stated, I was trying to hard to not be naked. I was following Lucifier from room to room. He knows my purpose is healing . Pt denies side effects from medications. Start: Depakote 250mg PO BID 05/17: Pt continues similar to yesterday. delusional. grandiose. +AH. +VH. denies SI/HI. Per nursing, slept 6 hours last night. placed on 1:1 safety checks yesterday d/t disorganized behavior. Pt stated, It's so weird that my room is next door to Dionicio. The [place] wedding ceremony is confusing . medication compliant. Spoke to patient's mother yesterday afternoon via phone, reviewed past medication trials; mother was notified of patient starting on Depakote. Patient educated on: diagnosis and medication risk/benefits Reason for continued inpatient stay Substantial Risk for: med/psych decompensation Time Spent With Patient Time: Total time managing care of this patient today _20___ minutes.
[2024-05-17] MEDS: Fluticasone Propionate Nasal 16 GM SPRAY 1 SPRAY NOSTRIL-B (10:19)
[2024-05-17] MEDS: Loperamide HCl 2 MG CAPSULE PO (12:52)
[2024-05-17] MEDS: Ondansetron ODT 4 MG TAB.RAPDIS TRANSLINGU (12:52)
[2024-05-17] MEDS: Acetaminophen 325 MG TABLET 650 MG PO ×2 (13:58→20:03)
[2024-05-17 15:04] LABS: Influenza A PCR NEGATIVE (Negative); Influenza B PCR NEGATIVE (Negative); Resp Syncy Virus RNA Qual PCR NEGATIVE (Negative); SARS COV2 PCR INHOUSE NEGATIVE (Negative)
[2024-05-17 20:00] VITALS: BP 102/61; PULSE 83; RESP 16; TEMP 36.4; O2SAT 99
[2024-05-18] MEDS: Nicotine Polacrilex 2 MG GUM 4 MG BUCCAL ×4 (04:58→22:50)
[2024-05-18 07:46] VITALS: BP 116/73; PULSE 111; RESP 14; TEMP 36.6; O2SAT 97
[2024-05-18] MEDS: clonazePAM 1 MG TABLET PO ×2 (08:20→20:11)
[2024-05-18] MEDS: Divalproex Sodium 250 MG TABLET.DR PO (08:20)
[2024-05-18] MEDS: risperiDONE 1 MG TABLET PO (08:20)
[2024-05-18] MEDS: Lurasidone HCl 80 MG TABLET PO (08:20)
[2024-05-18] MEDS: Fluticasone Propionate Nasal 16 GM SPRAY 1 SPRAY NOSTRIL-B (08:21)
[2024-05-18] MEDS: Nicotine 21 MG PATCH.TD24 TRANSDERMA (08:21)
--- NOTE | 2024-05-18 09:07 | P.PNPSI_ITS ---
Subjective Subjective Date of Service: 05/18/24 Reason For Visit: Crisis Subjective Notes: Conditional Voluntary Interim History: Pt continues delusional, disorganized. Depakote level 37.6 on 05/18/24. Pt reports she was crawling on the floor and licking things because it's part of the [place] . Continues to talk about Dionicio being on the unit and talking with her. Depakote increased to 500mg PO BID Klonopin decreased to 1mg PO BID Medication Compliance: Yes Side effects from medications: No Mental Status Exam Mental Status Exam Narrative: Pt is alert and oriented; behavior is cooperative, friendly; dressed in casual attire; mood is described as great ; eye contact appropriate; Speech is normal rate, volume, less pressured; grandiose, delusional, disorganized, logical at times; denies SI/HI. +AH, +VH. Diagnostics Vital Signs (24Hr): Vital Signs - 24 hr 05/17/24 20:00 05/18/24 07:46 Temperature 97.5 F 97.8 F Pulse Rate 83 111 H Respiratory Rate 16 14 Blood Pressure 102/61 116/73 Pulse Oximetry 99 97 Oxygen Delivery Method Room Air Room Air BMI result Body Mass Index 28.9 Labs 05/12/24 09:33 05/15/24 13:53 Labs: Laboratory Results - last 48 hr 05/17/24 14:18 Influenza Type A (PCR) NEGATIVE Influenza Type B (PCR) NEGATIVE RSV RNA Qual (PCR) NEGATIVE SARS-CoV-2 RNA (RT-PCR) NEGATIVE Medications Medications Current Medications Acetaminophen (Acetaminophen 325 Mg Tablet) 650 mg PO Q6H PRN PRN Reason: Headache/Pain, Scale 1-10 Last Admin: 05/17/24 20:03 Dose: 650 mg Al Hydroxide/Mg Hydroxide (Magnesium Hydrox/Alum Hydrox 30 Ml Oral.Susp) 30 ml PO Q6H PRN PRN Reason: Heartburn/Nausea Last Admin: 05/17/24 03:24 Dose: 30 ml Albuterol Sulfate (Albuterol Sulfate 90 Mcg 8 Gm Inhaler) 1 puff INHALE RQ6H PRN PRN Reason: Shortness of Breath Calcium Carbonate (Calcium Carbonate 750 Mg Tab.Chew) 750 mg PO Q6H PRN PRN Reason: Heartburn Last Admin: 05/16/24 23:52 Dose: 750 mg Clonazepam (Clonazepam 1 Mg Tablet) 1 mg PO TID [facility] Last Admin: 05/18/24 08:20 Dose: 1 mg Divalproex Sodium (Divalproex Sodium 250 Mg Tablet.Dr) 250 mg PO BID [facility] Last Admin: 05/18/24 08:20 Dose: 250 mg Fluticasone Propionate (Fluticasone Propionate Nasal 16 Gm [place]) 1 spray NOSTRIL-B DAILY [facility] Last Admin: 05/18/24 08:21 Dose: 1 spray Hydroxyzine HCl (Hydroxyzine Hcl 25 Mg Tablet) 25 mg PO Q6H PRN PRN Reason: mild anxiety Last Admin: 05/17/24 03:24 Dose: 25 mg Loperamide HCl (Loperamide Hcl 2 Mg Capsule) 2 mg PO Q6H PRN PRN Reason: Loose Stool Last Admin: 05/17/24 12:52 Dose: 2 mg Lurasidone HCl (Lurasidone Hcl 80 Mg Tablet) 80 mg PO DAILY [facility] Last Admin: 05/18/24 08:20 Dose: 80 mg Magnesium Hydroxide (Milk Of Magnesia 30 Ml Oral.Susp) 30 ml PO DAILY PRN PRN Reason: Constipation Nicotine (Nicotine 21 Mg Patch.Td24) 21 mg TRANSDERMA DAILY [facility] Last Admin: 05/18/24 08:21 Dose: 21 mg Nicotine Polacrilex (Nicotine Polacrilex 2 Mg Gum) 4 mg BUCCAL Q2H PRN PRN Reason: Nicotine Cravings Last Admin: 05/18/24 04:58 Dose: 4 mg Ondansetron HCl (Ondansetron Odt 4 Mg Tab.Rapdis) 4 mg TRANSLINGU Q12H PRN PRN Reason: Nausea and Vomiting Last Admin: 05/17/24 12:52 Dose: 4 mg Risperidone (Risperidone 1 Mg Tablet) 1 mg PO BID PRN PRN Reason: Psychosis Last Admin: 05/18/24 08:20 Dose: 1 mg Trazodone HCl (Trazodone Hcl 50 Mg Tablet) 50 mg PO BEDTIME MRX1 PRN PRN Reason: Insomnia Allergies Allergies Allergy/AdvReac Type Severity Reaction Status Date / Time lithium AdvReac Intermediate tremors Uncoded 05/14/24 16:39 olanzapine AdvReac Intermediate ortho hotn Uncoded 05/14/24 16:39 Assessment & Plan Assessment & Plan (1) Bipolar I disorder with jean: Status: Acute Code(s): F31.10 - Bipolar disorder, current episode manic without psychotic features, unspecified (2) PTSD (post-traumatic stress disorder): Status: Acute Code(s): F43.10 - Post-traumatic stress disorder, unspecified Plan Patient patient is a 23-year-old female with history of bipolar disorder and PTSD who presented to ER via section 12 due to manic behavior secondary to increased marijuana use. Plan: CV 15 minutes safety check Continue home medications Obtain collateral Encourage groups Discharge planning 05/16: delusional. grandiose. +AH. +VH. denies SI/HI. Active on unit. medication compliant. Per nursing, slept 3 hours last night. Pt stated, I feel good. Bradly and Dionicio are leaving me gifts. They are the same person. He leaves me food mostly. I asked him to play music and he flushed the toilet. We talk telepathically . When asked why she was walking around the unit without clothes on last evening; pt stated, I was trying to hard to not be naked. I was following Lucifier from room to room. He knows my purpose is healing . Pt denies side effects from medications. Start: Depakote 250mg PO BID 05/17: Pt continues similar to yesterday. delusional. grandiose. +AH. +VH. denies SI/HI. Per nursing, slept 6 hours last night. placed on 1:1 safety checks yesterday d/t disorganized behavior. Pt stated, It's so weird that my room is next door to [facility]. The [place] ceremony is confusing . medication compliant. Spoke to patient's mother yesterday afternoon via phone, reviewed past medication trials; mother was notified of patient starting on Depakote. 05/18: Pt continues delusional, disorganized. Depakote level 37.6 on 05/18/24. Pt reports she was crawling on the floor and licking things because it's part of the [place] . Continues to talk about Dionicio being on the unit and talking with her. Depakote increased to 500mg PO BID Klonopin decreased to 1mg PO BID Patient educated on: diagnosis and medication risk/benefits Reason for continued inpatient stay Substantial Risk for: med/psych decompensation Time Spent With Patient Time: Total time managing care of this patient today _20___ minutes.
[2024-05-18 11:11] LABS: Ammonia 46 umol/L (13-55)
[2024-05-18 11:19] LABS: Alanine Aminotransferase 31 U/L (0-31); Albumin Level 4.4 g/dL (3.5-5.0); Alkaline Phosphatase 77 U/L (39-117); Aspartate Amino Transferase 41 U/L (5-31); Bilirubin Direct 0.2 mg/dL (0.0-0.5); Bilirubin Total 0.4 mg/dL (0.0-1.0); Total Protein 7.3 g/dL (6.5-8.0)
[2024-05-18 11:20] LABS: Valproate 37.6 mcg/mL (50.0-100.0)
--- NOTE | 2024-05-18 14:51 | PC.NURSE ---
Patient vomited x 2 ~300 mL
[2024-05-18] MEDS: Ondansetron ODT 4 MG TAB.RAPDIS TRANSLINGU (16:22)
[2024-05-18] MEDS: Acetaminophen 325 MG TABLET 650 MG PO (16:47)
[2024-05-18] MEDS: Magnesium Hydrox/Alum Hydrox 30 ML ORAL.SUSP PO (18:59)
[2024-05-18] MEDS: hydrOXYzine HCL 25 MG TABLET PO (19:01)
[2024-05-18 19:55] VITALS: RESP 16
[2024-05-18] MEDS: Divalproex Sodium 500 MG TABLET.DR PO (20:11)
[2024-05-18] MEDS: Calcium Carbonate 750 MG TAB.CHEW PO (21:34)
[2024-05-19] MEDS: Fluticasone Propionate Nasal 16 GM SPRAY 1 SPRAY NOSTRIL-B ×2 (01:12→14:13)
[2024-05-19] MEDS: risperiDONE 1 MG TABLET PO ×3 (01:35→23:15)
[2024-05-19] MEDS: Acetaminophen 325 MG TABLET 650 MG PO ×2 (01:35→11:35)
[2024-05-19 07:15] VITALS: BP 132/79; PULSE 109; RESP 16; TEMP 36.3; O2SAT 98
[2024-05-19] MEDS: clonazePAM 1 MG TABLET PO ×2 (08:24→21:55)
[2024-05-19] MEDS: Lurasidone HCl 80 MG TABLET PO (08:24)
[2024-05-19] MEDS: Divalproex Sodium 500 MG TABLET.DR PO (08:24)
--- NOTE | 2024-05-19 08:49 | HO.PSYCHPN ---
Subjective Subjective Date of Service: 05/19/24 Reason For Visit: Crisis Interim History: The nursing staff reported the patient had been visible in the unit, paranoid stating that people are taking her things. She slept only for 5 hours. Her Depakote level was 27.6. Still on one-to-one for safety. The staff reported that she vomited 3 times yesterday. Her mother called and wanted to talk to me regarding her status. On interview the patient remains paranoid, she gave me permission to talk with her mother. Mental Status Exam Mental Status Exam Patient Appearance: Appropriate Patient Orientation: Person Level of Consciousness: Awake Patient Behavior: Guarded and Suspicious Mood Description: Withdrawn Affect Description: Labile Patient Cognition Impaired: No Ability to Follow Directions: Fair Speech Pattern: Appropriate Hallucinations: None Delusions: Paranoid Ideation and Ideas of Reference Thought Process: Racing and Distracted Thought Content: positive for [place] and positive for Poverty of Content Judgement: Poor Diagnostics Vital Signs (24Hr): Vital Signs - 24 hr 05/18/24 19:55 05/19/24 07:15 Temperature 97.3 F Pulse Rate 109 H Respiratory Rate 16 16 Blood Pressure 132/79 Pulse Oximetry 98 Oxygen Delivery Method Room Air BMI result Body Mass Index 28.9 Labs 05/12/24 09:33 05/15/24 13:53 Labs: Laboratory Results - last 48 hr 05/17/24 05/18/24 14:18 10:54 Total Bilirubin 0.4 Direct Bilirubin 0.2 AST 41 H ALT 31 Alkaline Phosphatase 77 Ammonia 46 Total Protein 7.3 Albumin 4.4 Valproic Acid 37.6 L Influenza Type A (PCR) NEGATIVE Influenza Type B (PCR) NEGATIVE RSV RNA Qual (PCR) NEGATIVE SARS-CoV-2 RNA (RT-PCR) NEGATIVE Medications Medications Current Medications Acetaminophen (Acetaminophen 325 Mg Tablet) 650 mg PO Q6H PRN PRN Reason: Headache/Pain, Scale 1-10 Last Admin: 05/19/24 01:35 Dose: 650 mg Al Hydroxide/Mg Hydroxide (Magnesium Hydrox/Alum Hydrox 30 Ml Oral.Susp) 30 ml PO Q6H PRN PRN Reason: Heartburn/Nausea Last Admin: 05/18/24 18:59 Dose: 30 ml Albuterol Sulfate (Albuterol Sulfate 90 Mcg 8 Gm Inhaler) 1 puff INHALE RQ6H PRN PRN Reason: Shortness of Breath Calcium Carbonate (Calcium Carbonate 750 Mg Tab.Chew) 750 mg PO Q6H PRN PRN Reason: Heartburn Last Admin: 05/18/24 21:34 Dose: 750 mg Clonazepam (Clonazepam 1 Mg Tablet) 1 mg PO BID [facility] Last Admin: 05/19/24 08:24 Dose: 1 mg Divalproex Sodium (Divalproex Sodium 500 Mg Tablet.Dr) 500 mg PO BID [facility] Last Admin: 05/19/24 08:24 Dose: 500 mg Fluticasone Propionate (Fluticasone Propionate Nasal 16 Gm [place]) 1 spray NOSTRIL-B DAILY PRN PRN Reason: Allergic Symptoms Last Admin: 05/19/24 01:12 Dose: 1 spray Hydroxyzine HCl (Hydroxyzine Hcl 25 Mg Tablet) 25 mg PO Q6H PRN PRN Reason: mild anxiety Last Admin: 05/18/24 19:01 Dose: 25 mg Lurasidone HCl (Lurasidone Hcl 80 Mg Tablet) 80 mg PO DAILY [facility] Last Admin: 05/19/24 08:24 Dose: 80 mg Magnesium Hydroxide (Milk Of Magnesia 30 Ml Oral.Susp) 30 ml PO DAILY PRN PRN Reason: Constipation Nicotine (Nicotine 21 Mg Patch.Td24) 21 mg TRANSDERMA DAILY PRN PRN Reason: Nicotine Cravings Nicotine Polacrilex (Nicotine Polacrilex 2 Mg Gum) 4 mg BUCCAL Q2H PRN PRN Reason: Nicotine Cravings Last Admin: 05/18/24 22:50 Dose: 4 mg Ondansetron HCl (Ondansetron Odt 4 Mg Tab.Rapdis) 4 mg TRANSLINGU Q12H PRN PRN Reason: Nausea and Vomiting Last Admin: 05/18/24 16:22 Dose: 4 mg Risperidone (Risperidone 1 Mg Tablet) 1 mg PO BID PRN PRN Reason: Psychosis Last Admin: 05/19/24 08:24 Dose: 1 mg Trazodone HCl (Trazodone Hcl 50 Mg Tablet) 50 mg PO BEDTIME MRX1 PRN PRN Reason: Insomnia Allergies Allergies Allergy/AdvReac Type Severity Reaction Status Date / Time lithium AdvReac Intermediate tremors Uncoded 05/14/24 16:39 olanzapine AdvReac Intermediate ortho hotn Uncoded 05/14/24 16:39 Assessment & Plan Assessment & Plan (1) Bipolar I disorder with jean: Status: Acute Code(s): F31.10 - Bipolar disorder, current episode manic without psychotic features, unspecified (2) PTSD (post-traumatic stress disorder): Status: Acute Code(s): F43.10 - Post-traumatic stress disorder, unspecified Plan Patient patient is a 23-year-old female with history of bipolar disorder and PTSD who presented to ER via section 12 due to manic behavior secondary to increased marijuana use. Plan: CV 15 minutes safety check Continue home medications Obtain collateral Encourage groups Discharge planning 05/16: delusional. grandiose. +AH. +VH. denies SI/HI. Active on unit. medication compliant. Per nursing, slept 3 hours last night. Pt stated, I feel good. Bradly and Dionicio are leaving me gifts. They are the same person. He leaves me food mostly. I asked him to play music and he flushed the toilet. We talk telepathically . When asked why she was walking around the unit without clothes on last evening; pt stated, I was trying to hard to not be naked. I was following Lucifier from room to room. He knows my purpose is healing . Pt denies side effects from medications. Start: Depakote 250mg PO BID 05/17: Pt continues similar to yesterday. delusional. grandiose. +AH. +VH. denies SI/HI. Per nursing, slept 6 hours last night. placed on 1:1 safety checks yesterday d/t disorganized behavior. Pt stated, It's so weird that my room is next door to [facility]. The [place] wedding ceremony is confusing . medication compliant. Spoke to patient's mother yesterday afternoon via phone, reviewed past medication trials; mother was notified of patient starting on Depakote. 05/18: Pt continues delusional, disorganized. Depakote level 37.6 on 05/18/24. Pt reports she was crawling on the floor and licking things because it's part of the [place] wedding . Continues to talk about Dionicio being on the unit and talking with her. Depakote increased to 500mg PO BID Klonopin decreased to 1mg PO BID 05/19 keep same treatment. The patient agreed that I can contact her mother at . Reason for continued inpatient stay Substantial Risk for: inability to function, rapid decompensation and med/psych decompensation Time Spent With Patient Time: Total time managing care of this patient today __20__ minutes.
[2024-05-19] MEDS: Nicotine 21 MG PATCH.TD24 TRANSDERMA (14:17)
[2024-05-19] MEDS: hydrOXYzine HCL 25 MG TABLET PO (17:12)
[2024-05-19] MEDS: Nicotine Polacrilex 2 MG GUM 4 MG BUCCAL (19:12)
[2024-05-19 19:31] VITALS: BP 134/83; PULSE 112; RESP 16; TEMP 36.4; O2SAT 94
[2024-05-19] MEDS: Divalproex Sodium 250 MG TABLET.DR PO (21:55)
[2024-05-20 08:00] VITALS: BP 112/59; PULSE 81; RESP 16; TEMP 36.3; O2SAT 99
[2024-05-20] MEDS: Lurasidone HCl 80 MG TABLET PO (08:30)
[2024-05-20] MEDS: Divalproex Sodium 250 MG TABLET.DR PO ×2 (08:30→21:46)
[2024-05-20] MEDS: clonazePAM 1 MG TABLET PO ×2 (08:30→21:47)
--- NOTE | 2024-05-20 08:49 | P.PNPSI_ITS ---
Subjective Subjective Date of Service: 05/20/24 Reason For Visit: Crisis Interim History: The nursing staff reported the patient had been with a blunted affect, with auditory hallucinations, grossly disorganized. He also has visual hallucinations and she reported that she is only with 1 baby not 5. He slept 5 hours. Yesterday I talked with her family and her parents are very worried about her and her rapid decompensation. I lowered her Depakote since the day before she was having nausea and vomiting. On interview, the patient looks grossly disorganized. Still on one-to-one Mental Status Exam Mental Status Exam Patient Appearance: Appropriate Patient Orientation: Person and Situation Level of Consciousness: Awake Patient Behavior: Guarded and Passive Mood Description: Withdrawn Affect Description: Blunted Patient Cognition Impaired: Yes Ability to Follow Directions: Fair Speech Pattern: Impoverished Hallucinations: Auditory and Visual Delusions: Paranoid Ideation Perceptual Disturbances: Hallucinations Thought Process: Illogical Thought Content: positive for [place] and positive for Poverty of Content Judgement: Poor Diagnostics Vital Signs (24Hr): Vital Signs - 24 hr 05/19/24 19:31 05/20/24 08:00 Temperature 97.5 F 97.3 F Pulse Rate 112 H 81 Respiratory Rate 16 16 Blood Pressure 134/83 112/59 L Pulse Oximetry 94 99 Oxygen Delivery Method Room Air Room Air BMI result Body Mass Index 28.9 Labs 05/12/24 09:33 05/15/24 13:53 Labs: Laboratory Results - last 48 hr 05/18/24 10:54 Total Bilirubin 0.4 Direct Bilirubin 0.2 AST 41 H ALT 31 Alkaline Phosphatase 77 Ammonia 46 Total Protein 7.3 Albumin 4.4 Valproic Acid 37.6 L Medications Medications Current Medications Acetaminophen (Acetaminophen 325 Mg Tablet) 650 mg PO Q6H PRN PRN Reason: Headache/Pain, Scale 1-10 Last Admin: 05/19/24 11:35 Dose: 650 mg Al Hydroxide/Mg Hydroxide (Magnesium Hydrox/Alum Hydrox 30 Ml Oral.Susp) 30 ml PO Q6H PRN PRN Reason: Heartburn/Nausea Last Admin: 05/18/24 18:59 Dose: 30 ml Albuterol Sulfate (Albuterol Sulfate 90 Mcg 8 Gm Inhaler) 1 puff INHALE RQ6H PRN PRN Reason: Shortness of Breath Calcium Carbonate (Calcium Carbonate 750 Mg Tab.Chew) 750 mg PO Q6H PRN PRN Reason: Heartburn Last Admin: 05/18/24 21:34 Dose: 750 mg Clonazepam (Clonazepam 1 Mg Tablet) 1 mg PO BID [facility] Last Admin: 05/20/24 08:30 Dose: 1 mg Divalproex Sodium (Divalproex Sodium 250 Mg Tablet.Dr) 250 mg PO BID [facility] Last Admin: 05/20/24 08:30 Dose: 250 mg Fluticasone Propionate (Fluticasone Propionate Nasal 16 Gm [place]) 1 spray NOSTRIL-B DAILY PRN PRN Reason: Allergic Symptoms Last Admin: 05/19/24 14:13 Dose: 1 spray Hydroxyzine HCl (Hydroxyzine Hcl 25 Mg Tablet) 25 mg PO Q6H PRN PRN Reason: mild anxiety Last Admin: 05/19/24 17:12 Dose: 25 mg Lurasidone HCl (Lurasidone Hcl 80 Mg Tablet) 80 mg PO DAILY [facility] Last Admin: 05/20/24 08:30 Dose: 80 mg Magnesium Hydroxide (Milk Of Magnesia 30 Ml Oral.Susp) 30 ml PO DAILY PRN PRN Reason: Constipation Nicotine (Nicotine 21 Mg Patch.Td24) 21 mg TRANSDERMA DAILY PRN PRN Reason: Nicotine Cravings Last Admin: 05/19/24 14:17 Dose: 21 mg Nicotine Polacrilex (Nicotine Polacrilex 2 Mg Gum) 4 mg BUCCAL Q2H PRN PRN Reason: Nicotine Cravings Last Admin: 05/19/24 19:12 Dose: 4 mg Ondansetron HCl (Ondansetron Odt 4 Mg Tab.Rapdis) 4 mg TRANSLINGU Q12H PRN PRN Reason: Nausea and Vomiting Last Admin: 05/18/24 16:22 Dose: 4 mg Risperidone (Risperidone 1 Mg Tablet) 1 mg PO BID PRN PRN Reason: Psychosis Last Admin: 05/19/24 08:24 Dose: 1 mg Trazodone HCl (Trazodone Hcl 50 Mg Tablet) 50 mg PO BEDTIME MRX1 PRN PRN Reason: Insomnia Allergies Allergies Allergy/AdvReac Type Severity Reaction Status Date / Time lithium AdvReac Intermediate tremors Uncoded 05/14/24 16:39 olanzapine AdvReac Intermediate ortho hotn Uncoded 05/14/24 16:39 Assessment & Plan Assessment & Plan (1) Bipolar I disorder with jean: Status: Acute Code(s): F31.10 - Bipolar disorder, current episode manic without psychotic features, unspecified (2) PTSD (post-traumatic stress disorder): Status: Acute Code(s): F43.10 - Post-traumatic stress disorder, unspecified Plan Patient patient is a 23-year-old female with history of bipolar disorder and PTSD who presented to ER via section 12 due to manic behavior secondary to increased marijuana use. Plan: CV 15 minutes safety check Continue home medications Obtain collateral Encourage groups Discharge planning 05/16: delusional. grandiose. +AH. +VH. denies SI/HI. Active on unit. medication compliant. Per nursing, slept 3 hours last night. Pt stated, I feel good. Bradly and Dionicio are leaving me gifts. They are the same person. He leaves me food mostly. I asked him to play music and he flushed the toilet. We talk telepathically . When asked why she was walking around the unit without clothes on last evening; pt stated, I was trying to hard to not be naked. I was following Lucifier from room to room. He knows my purpose is healing . Pt denies side effects from medications. Start: Depakote 250mg PO BID 05/17: Pt continues similar to yesterday. delusional. grandiose. +AH. +VH. denies SI/HI. Per nursing, slept 6 hours last night. placed on 1:1 safety checks yesterday d/t disorganized behavior. Pt stated, It's so weird that my room is next door to [facility]. The [place] wedding ceremony is confusing . medication compliant. Spoke to patient's mother yesterday afternoon via phone, reviewed past medication trials; mother was notified of patient starting on Depakote. 05/18: Pt continues delusional, disorganized. Depakote level 37.6 on 05/18/24. Pt reports she was crawling on the floor and licking things because it's part of the [place] wedding . Continues to talk about Dionicio being on the unit and talking with her. Depakote increased to 500mg PO BID Klonopin decreased to 1mg PO BID 05/19 keep same treatment. The patient agreed that I can contact her mother at [phone]. 05/20 I lowered her Depakote yesterday after speaking with her parents. Still grossly disorganized. Reason for continued inpatient stay Substantial Risk for: inability to function, rapid decompensation and med/psych decompensation Time Spent With Patient Time: Total time managing care of this patient today __20__ minutes.
[2024-05-20] MEDS: Nicotine Polacrilex Lozenge 4 MG LOZENGE BUCCAL ×4 (10:06→17:18)
[2024-05-20] MEDS: hydrOXYzine HCL 25 MG TABLET PO (16:19)
[2024-05-20 20:00] VITALS: BP 158/70; PULSE 113; RESP 16; TEMP 36.3; O2SAT 99
[2024-05-20 21:30] VITALS: BP 121/70; PULSE 109
[2024-05-20] MEDS: risperiDONE 1 MG TABLET PO (21:47)
[2024-05-21] MEDS: Nicotine Polacrilex Lozenge 4 MG LOZENGE BUCCAL ×4 (03:44→19:50)
[2024-05-21 07:30] VITALS: BP 130/81; PULSE 113; RESP 14; TEMP 36.6; O2SAT 99
[2024-05-21] MEDS: clonazePAM 1 MG TABLET PO ×2 (08:07→21:03)
[2024-05-21] MEDS: Divalproex Sodium 250 MG TABLET.DR PO ×2 (08:08→11:15)
[2024-05-21] MEDS: Lurasidone HCl 80 MG TABLET PO (08:08)
--- NOTE | 2024-05-21 09:48 | HO.PSYCHPN ---
Subjective Subjective Date of Service: 05/21/24 Reason For Visit: Crisis Subjective Notes: Conditional Voluntary Interim History: Napping on sensory room floor. states she does not want to go to her room d/t it smelling . Pt continues delusional and disorganized. Depakote level 37.6 on 05/18/24. No reports of patient vomiting the past 2 days. pt was given additional 250mg dose today, however proceeded to vomit 3 hours later. Depakote DC'd. Start [place] 300mg PO BID; monitor for side effects. Klonopin decreased to 1mg PO bedtime and 0.5mg PO daily She continues to talk about Dionicio being on the unit and giving her food. Pt stated, Dionicio is hanging around. I'm not crazy. Everyone knows he's here too . denies SI/HI/VH/AH. per nursing, pt slept 3-4 hours last night. T/W spoke to pt's mother, Sara, regarding treatment plan. Sara reports she is considering having pt go to substance abuse program after discharge for marijuana use. Medication Compliance: Yes Side effects from medications: No Attending Groups: Intermittent Diagnostics Vital Signs (24Hr): Vital Signs - 24 hr 05/20/24 20:00 05/20/24 21:30 05/21/24 07:30 Temperature 97.4 F 97.9 F Pulse Rate 113 H 109 H 113 H Respiratory Rate 16 14 Blood Pressure 158/70 H 121/70 130/81 Pulse Oximetry 99 99 Oxygen Delivery Method Room Air Room Air BMI result Body Mass Index 28.9 Labs 05/12/24 09:33 05/15/24 13:53 Medications Medications Current Medications Acetaminophen (Acetaminophen 325 Mg Tablet) 650 mg PO Q6H PRN PRN Reason: Headache/Pain, Scale 1-10 Last Admin: 05/19/24 11:35 Dose: 650 mg Al Hydroxide/Mg Hydroxide (Magnesium Hydrox/Alum Hydrox 30 Ml Oral.Susp) 30 ml PO Q6H PRN PRN Reason: Heartburn/Nausea Last Admin: 05/18/24 18:59 Dose: 30 ml Albuterol Sulfate (Albuterol Sulfate 90 Mcg 8 Gm Inhaler) 1 puff INHALE RQ6H PRN PRN Reason: Shortness of Breath Calcium Carbonate (Calcium Carbonate 750 Mg Tab.Chew) 750 mg PO Q6H PRN PRN Reason: Heartburn Last Admin: 05/18/24 21:34 Dose: 750 mg Clonazepam (Clonazepam 1 Mg Tablet) 1 mg PO BID [facility] Last Admin: 05/21/24 08:07 Dose: 1 mg Divalproex Sodium (Divalproex Sodium 250 Mg Tablet.Dr) 250 mg PO BID [facility] Last Admin: 05/21/24 08:08 Dose: 250 mg Fluticasone Propionate (Fluticasone Propionate Nasal 16 Gm [place]) 1 spray NOSTRIL-B DAILY PRN PRN Reason: Allergic Symptoms Last Admin: 05/19/24 14:13 Dose: 1 spray Hydroxyzine HCl (Hydroxyzine Hcl 25 Mg Tablet) 25 mg PO Q6H PRN PRN Reason: mild anxiety Last Admin: 05/20/24 16:19 Dose: 25 mg Lurasidone HCl (Lurasidone Hcl 80 Mg Tablet) 80 mg PO DAILY [facility] Last Admin: 05/21/24 08:08 Dose: 80 mg Magnesium Hydroxide (Milk Of Magnesia 30 Ml Oral.Susp) 30 ml PO DAILY PRN PRN Reason: Constipation Nicotine (Nicotine 21 Mg Patch.Td24) 21 mg TRANSDERMA DAILY PRN PRN Reason: Nicotine Cravings Last Admin: 05/19/24 14:17 Dose: 21 mg Nicotine Polacrilex (Nicotine Polacrilex Lozenge 4 Mg Lozenge) 4 mg BUCCAL Q2H PRN PRN Reason: Nicotine Cravings Last Admin: 05/21/24 07:36 Dose: 4 mg Ondansetron HCl (Ondansetron Odt 4 Mg Tab.Rapdis) 4 mg TRANSLINGU Q12H PRN PRN Reason: Nausea and Vomiting Last Admin: 05/18/24 16:22 Dose: 4 mg Risperidone (Risperidone 1 Mg Tablet) 1 mg PO BID PRN PRN Reason: Psychosis Last Admin: 05/20/24 21:47 Dose: 1 mg Trazodone HCl (Trazodone Hcl 50 Mg Tablet) 50 mg PO BEDTIME MRX1 PRN PRN Reason: Insomnia Allergies Allergies Allergy/AdvReac Type Severity Reaction Status Date / Time lithium AdvReac Intermediate tremors Uncoded 05/14/24 16:39 olanzapine AdvReac Intermediate ortho hotn Uncoded 05/14/24 16:39 Assessment & Plan Assessment & Plan (1) Bipolar I disorder with jean: Status: Acute Code(s): F31.10 - Bipolar disorder, current episode manic without psychotic features, unspecified (2) PTSD (post-traumatic stress disorder): Status: Acute Code(s): F43.10 - Post-traumatic stress disorder, unspecified Plan Patient patient is a 23-year-old female with history of bipolar disorder and PTSD who presented to ER via section 12 due to manic behavior secondary to increased marijuana use. Plan: CV 15 minutes safety check Continue home medications Obtain collateral Encourage groups Discharge planning 05/16: delusional. grandiose. +AH. +VH. denies SI/HI. Active on unit. medication compliant. Per nursing, slept 3 hours last night. Pt stated, I feel good. Bradly and Dionicio are leaving me gifts. They are the same person. He leaves me food mostly. I asked him to play music and he flushed the toilet. We talk telepathically . When asked why she was walking around the unit without clothes on last evening; pt stated, I was trying to hard to not be naked. I was following Lucifier from room to room. He knows my purpose is healing . Pt denies side effects from medications. Start: Depakote 250mg PO BID 05/17: Pt continues similar to yesterday. delusional. grandiose. +AH. +VH. denies SI/HI. Per nursing, slept 6 hours last night. placed on 1:1 safety checks yesterday d/t disorganized behavior. Pt stated, It's so weird that my room is next door to [facility]. The [place] wedding ceremony is confusing . medication compliant. Spoke to patient's mother yesterday afternoon via phone, reviewed past medication trials; mother was notified of patient starting on Depakote. 05/18: Pt continues delusional, disorganized. Depakote level 37.6 on 05/18/24. Pt reports she was crawling on the floor and licking things because it's part of the [place] wedding . Continues to talk about Dionicio being on the unit and talking with her. Depakote increased to 500mg PO BID Klonopin decreased to 1mg PO BID 05/19 keep same treatment. The patient agreed that I can contact her mother at [phone]. 05/20 I lowered her Depakote yesterday after speaking with her parents. Still grossly disorganized. 05/21: Napping on sensory room floor. states she does not want to go to her room d/t it smelling . Pt continues delusional and disorganized. Depakote level 37.6 on 05/18/24. No reports of patient vomiting the past 2 days. pt was given additional 250mg dose today, however proceeded to vomit 3 hours later. Depakote DC'd. Start [place] 300mg PO BID; monitor for side effects. Klonopin decreased to 1mg PO bedtime and 0.5mg PO daily She continues to talk about Dionicio being on the unit and giving her food. Pt stated, Dionicio is hanging around. I'm not crazy. Everyone knows he's here too . denies SI/HI/VH/AH. per nursing, pt slept 3-4 hours last night. T/W spoke to pt's mother, Sara, regarding treatment plan. Sara reports she is considering having pt go to substance abuse program after discharge for marijuana use. Patient educated on: medication risk/benefits Guardian/Caregiver educated on: medication risk/benefits Reason for continued inpatient stay Substantial Risk for: med/psych decompensation Time Spent With Patient Time: Total time managing care of this patient today _20___ minutes.
[2024-05-21] MEDS: Acetaminophen 325 MG TABLET 650 MG PO ×2 (10:16→19:49)
[2024-05-21] MEDS: Ondansetron ODT 4 MG TAB.RAPDIS TRANSLINGU (13:04)
[2024-05-21] MEDS: Nicotine 21 MG PATCH.TD24 TRANSDERMA (14:20)
[2024-05-21 20:00] VITALS: BP 134/84; PULSE 113; RESP 16; TEMP 36.8; O2SAT 98
[2024-05-21] MEDS: risperiDONE 1 MG TABLET PO (21:03)
[2024-05-21] MEDS: Lithium Carbonate ER 300 MG TABLET.ER PO (21:04)
[2024-05-22] MEDS: Nicotine 21 MG PATCH.TD24 TRANSDERMA (05:04)
[2024-05-22] MEDS: Nicotine Polacrilex Lozenge 4 MG LOZENGE BUCCAL ×6 (05:07→21:05)
[2024-05-22 07:45] VITALS: BP 131/77; PULSE 110; RESP 16; TEMP 36.1; O2SAT 99
[2024-05-22] MEDS: Lithium Carbonate ER 300 MG TABLET.ER PO ×2 (08:29→22:58)
[2024-05-22] MEDS: Lurasidone HCl 80 MG TABLET PO (08:29)
[2024-05-22] MEDS: clonazePAM 0.5 MG TABLET PO (08:29)
--- NOTE | 2024-05-22 09:58 | P.PNPSI_ITS ---
Subjective Subjective Date of Service: 05/22/24 Reason For Visit: Crisis Subjective Notes: Conditional Voluntary Interim History: Napping throughout the day. Pt continues delusional however, more organized during conversation. Pt stated, I keep doing Yoga because in my body is strong than Dionicio's body is strong . She denies any side effects from starting Magnolia; per nursing, pt did not vomit last night or this morning. She reportedly slept 6 hours last night. Medication Compliance: Yes Side effects from medications: No Attending Groups: No Mental Status Exam Mental Status Exam Narrative: Pt is alert and oriented; behavior is cooperative, friendly; dressed in casual attire; mood is described as tired ; eye contact appropriate; Speech is normal rate, volume, not pressured; grandiose, delusional, more organized during conversation, logical at times; denies SI/HI. +AH, +VH. Diagnostics Vital Signs (24Hr): Vital Signs - 24 hr 05/21/24 20:00 05/22/24 07:45 Temperature 98.2 F 97.0 F Pulse Rate 113 H 110 H Respiratory Rate 16 16 Blood Pressure 134/84 131/77 Pulse Oximetry 98 99 Oxygen Delivery Method Room Air Room Air BMI result Body Mass Index 28.9 Labs 05/12/24 09:33 05/15/24 13:53 Medications Medications Current Medications Acetaminophen (Acetaminophen 325 Mg Tablet) 650 mg PO Q6H PRN PRN Reason: Headache/Pain, Scale 1-10 Last Admin: 05/21/24 19:49 Dose: 650 mg Al Hydroxide/Mg Hydroxide (Magnesium Hydrox/Alum Hydrox 30 Ml Oral.Susp) 30 ml PO Q6H PRN PRN Reason: Heartburn/Nausea Last Admin: 05/18/24 18:59 Dose: 30 ml Albuterol Sulfate (Albuterol Sulfate 90 Mcg 8 Gm Inhaler) 1 puff INHALE RQ6H PRN PRN Reason: Shortness of Breath Calcium Carbonate (Calcium Carbonate 750 Mg Tab.Chew) 750 mg PO Q6H PRN PRN Reason: Heartburn Last Admin: 05/18/24 21:34 Dose: 750 mg Clonazepam (Clonazepam 1 Mg Tablet) 1 mg PO BEDTIME LEE Last Admin: 05/21/24 21:03 Dose: 1 mg Clonazepam (Clonazepam 0.5 Mg Tablet) 0.5 mg PO DAILY LEE Last Admin: 05/22/24 08:29 Dose: 0.5 mg Fluticasone Propionate (Fluticasone Propionate Nasal 16 Gm [place]) 1 spray NOSTRIL-B DAILY PRN PRN Reason: Allergic Symptoms Last Admin: 05/19/24 14:13 Dose: 1 spray Hydroxyzine HCl (Hydroxyzine Hcl 25 Mg Tablet) 25 mg PO Q6H PRN PRN Reason: mild anxiety Last Admin: 05/20/24 16:19 Dose: 25 mg [place] Carbonate ([place]olia Carbonate Er 300 Mg Tablet.Er) 300 mg PO BID [facility] Last Admin: 05/22/24 08:29 Dose: 300 mg Lurasidone HCl (Lurasidone Hcl 80 Mg Tablet) 80 mg PO DAILY [facility] Last Admin: 05/22/24 08:29 Dose: 80 mg Magnesium Hydroxide (Milk Of Magnesia 30 Ml Oral.Susp) 30 ml PO DAILY PRN PRN Reason: Constipation Nicotine (Nicotine 21 Mg Patch.Td24) 21 mg TRANSDERMA DAILY PRN PRN Reason: Nicotine Cravings Last Admin: 05/22/24 05:04 Dose: 21 mg Nicotine Polacrilex (Nicotine Polacrilex Lozenge 4 Mg Lozenge) 4 mg BUCCAL Q2H PRN PRN Reason: Nicotine Cravings Last Admin: 05/22/24 08:29 Dose: 4 mg Ondansetron HCl (Ondansetron Odt 8 Mg Tab.Rapdis) 8 mg TRANSLINGU Q12H PRN PRN Reason: Nausea and Vomiting Risperidone (Risperidone 1 Mg Tablet) 1 mg PO BEDTIME [facility] Last Admin: 05/21/24 21:03 Dose: 1 mg Trazodone HCl (Trazodone Hcl 50 Mg Tablet) 50 mg PO BEDTIME MRX1 PRN PRN Reason: Insomnia Allergies Allergies Allergy/AdvReac Type Severity Reaction Status Date / Time lithium AdvReac Intermediate tremors Uncoded 05/14/24 16:39 olanzapine AdvReac Intermediate ortho hotn Uncoded 05/14/24 16:39 Assessment & Plan Assessment & Plan (1) Bipolar I disorder with jean: Status: Acute Code(s): F31.10 - Bipolar disorder, current episode manic without psychotic features, unspecified (2) PTSD (post-traumatic stress disorder): Status: Acute Code(s): F43.10 - Post-traumatic stress disorder, unspecified Plan Patient patient is a 23-year-old female with history of bipolar disorder and PTSD who presented to ER via section 12 due to manic behavior secondary to increased marijuana use. Plan: CV 15 minutes safety check Continue home medications Obtain collateral Encourage groups Discharge planning 05/16: delusional. grandiose. +AH. +VH. denies SI/HI. Active on unit. medication compliant. Per nursing, slept 3 hours last night. Pt stated, I feel good. Bradly and Dionicio are leaving me gifts. They are the same person. He leaves me food mostly. I asked him to play music and he flushed the toilet. We talk telepathically . When asked why she was walking around the unit without clothes on last evening; pt stated, I was trying to hard to not be naked. I was following Lucifier from room to room. He knows my purpose is healing . Pt denies side effects from medications. Start: Depakote 250mg PO BID 05/17: Pt continues similar to yesterday. delusional. grandiose. +AH. +VH. denies SI/HI. Per nursing, slept 6 hours last night. placed on 1:1 safety checks yesterday d/t disorganized behavior. Pt stated, It's so weird that my room is next door to [facility]. The [place] wedding ceremony is confusing . medication compliant. Spoke to patient's mother yesterday afternoon via phone, reviewed past medication trials; mother was notified of patient starting on Depakote. 05/18: Pt continues delusional, disorganized. Depakote level 37.6 on 05/18/24. Pt reports she was crawling on the floor and licking things because it's part of the [place] wedding . Continues to talk about Dionicio being on the unit and talking with her. Depakote increased to 500mg PO BID Klonopin decreased to 1mg PO BID 05/19 keep same treatment. The patient agreed that I can contact her mother at [phone]. 05/20 I lowered her Depakote yesterday after speaking with her parents. Still grossly disorganized. 05/21: Napping on sensory room floor. states she does not want to go to her room d/t it smelling . Pt continues delusional and disorganized. Depakote level 37.6 on 05/18/24. No reports of patient vomiting the past 2 days. pt was given additional 250mg dose today, however proceeded to vomit 3 hours later. Len DC'd. Start [place]olia 300mg PO BID; monitor for side effects. Klonopin decreased to 1mg PO bedtime and 0.5mg PO daily She continues to talk about Dionicio being on the unit and giving her food. Pt stated, Dionicio is hanging around. I'm not crazy. Everyone knows he's here too . denies SI/HI/VH/AH. per nursing, pt slept 3-4 hours last night. T/W spoke to pt's mother, Sara, regarding treatment plan. Sara reports she is considering having pt go to substance abuse program after discharge for marijuana use. 05/22: Napping throughout the day. Pt continues delusional however, more organized during conversation. Pt stated, I keep doing Yoga because in my body is strong than Dionicio's body is strong . She denies any side effects from starting Magnolia; per nursing, pt did not vomit last night or this morning. She reportedly slept 6 hours last night. Continue current tx plan. Patient educated on: diagnosis and medication risk/benefits Reason for continued inpatient stay Substantial Risk for: med/psych decompensation Time Spent With Patient Time: Total time managing care of this patient today _20___ minutes.
[2024-05-22 21:22] VITALS: BP 119/81; PULSE 112; RESP 16; TEMP 37.2; O2SAT 96
[2024-05-22] MEDS: clonazePAM 1 MG TABLET PO (22:59)
[2024-05-22] MEDS: risperiDONE 1 MG TABLET PO (22:59)
[2024-05-23] MEDS: Nicotine Polacrilex Lozenge 4 MG LOZENGE BUCCAL ×5 (06:12→20:00)
[2024-05-23 07:41] VITALS: BP 126/83; PULSE 120; RESP 16; TEMP 36.1; O2SAT 98
[2024-05-23] MEDS: clonazePAM 0.5 MG TABLET PO (08:07)
[2024-05-23] MEDS: Lurasidone HCl 80 MG TABLET PO (08:07)
[2024-05-23] MEDS: Nicotine 21 MG PATCH.TD24 TRANSDERMA (08:13)
[2024-05-23] MEDS: Lithium Carbonate ER 300 MG TABLET.ER PO (09:18)
--- NOTE | 2024-05-23 15:09 | HO.PSYCHPN ---
Subjective Subjective Date of Service: 05/23/24 Reason For Visit: Crisis Interim History: jean improving. irritable edge, but able to maintain behavioral control and engage productively with MD. plan made to DC risperidone and reschedule latuda to HS, as pt feels like a zombie. agreeable to increase lithium to 450 BID fort now as well. asking for make-up. per staff, disorganized, improving. taking meds. slept 6 hours. Mental Status Exam Mental Status Exam Narrative: Pt is alert and oriented; behavior is cooperative, friendly; dressed in casual attire; mood is not assessed; eye contact appropriate; Speech is normal rate, volume, not pressured; no delusions or paranoia expressed. no SI/HI/AVH expressed. Diagnostics Vital Signs (24Hr): Vital Signs - 24 hr 05/22/24 21:22 05/23/24 07:41 Temperature 98.9 F 96.9 F Pulse Rate 112 H 120 H Respiratory Rate 16 16 Blood Pressure 119/81 126/83 Pulse Oximetry 96 98 Oxygen Delivery Method Room Air Room Air BMI result Body Mass Index 28.9 Labs 05/12/24 09:33 05/15/24 13:53 Medications Medications Current Medications Acetaminophen (Acetaminophen 325 Mg Tablet) 650 mg PO Q6H PRN PRN Reason: Headache/Pain, Scale 1-10 Last Admin: 05/21/24 19:49 Dose: 650 mg Al Hydroxide/Mg Hydroxide (Magnesium Hydrox/Alum Hydrox 30 Ml Oral.Susp) 30 ml PO Q6H PRN PRN Reason: Heartburn/Nausea Last Admin: 05/18/24 18:59 Dose: 30 ml Albuterol Sulfate (Albuterol Sulfate 90 Mcg 8 Gm Inhaler) 1 puff INHALE RQ6H PRN PRN Reason: Shortness of Breath Calcium Carbonate (Calcium Carbonate 750 Mg Tab.Chew) 750 mg PO Q6H PRN PRN Reason: Heartburn Last Admin: 05/18/24 21:34 Dose: 750 mg Clonazepam (Clonazepam 1 Mg Tablet) 1 mg PO BEDTIME LEE Last Admin: 05/22/24 22:59 Dose: 1 mg Clonazepam (Clonazepam 0.5 Mg Tablet) 0.5 mg PO DAILY LEE Last Admin: 05/23/24 08:07 Dose: 0.5 mg Fluticasone Propionate (Fluticasone Propionate Nasal 16 Gm [place]) 1 spray NOSTRIL-B DAILY PRN PRN Reason: Allergic Symptoms Last Admin: 05/19/24 14:13 Dose: 1 spray Hydroxyzine HCl (Hydroxyzine Hcl 25 Mg Tablet) 25 mg PO Q6H PRN PRN Reason: mild anxiety Last Admin: 05/20/24 16:19 Dose: 25 mg [place] Carbonate ([place] Carbonate Er 450 Mg Tablet.Er) 450 mg PO BID LEE Lurasidone HCl (Lurasidone Hcl 80 Mg Tablet) 80 mg PO BEDTIME LEE Lurasidone HCl (Lurasidone Hcl 40 Mg Tablet) 40 mg PO ONCE ONE Stop: 05/23/24 21:01 Magnesium Hydroxide (Milk Of Magnesia 30 Ml Oral.Susp) 30 ml PO DAILY PRN PRN Reason: Constipation Nicotine (Nicotine 21 Mg Patch.Td24) 21 mg TRANSDERMA DAILY PRN PRN Reason: Nicotine Cravings Last Admin: 05/23/24 08:13 Dose: 21 mg Nicotine Polacrilex (Nicotine Polacrilex Lozenge 4 Mg Lozenge) 4 mg BUCCAL Q2H PRN PRN Reason: Nicotine Cravings Last Admin: 05/23/24 14:10 Dose: 4 mg Ondansetron HCl (Ondansetron Odt 8 Mg Tab.Rapdis) 8 mg TRANSLINGU Q12H PRN PRN Reason: Nausea and Vomiting Trazodone HCl (Trazodone Hcl 50 Mg Tablet) 50 mg PO BEDTIME MRX1 PRN PRN Reason: Insomnia Allergies Allergies Allergy/AdvReac Type Severity Reaction Status Date / Time lithium AdvReac Intermediate tremors Uncoded 05/14/24 16:39 olanzapine AdvReac Intermediate ortho hotn Uncoded 05/14/24 16:39 Assessment & Plan Assessment & Plan (1) Bipolar I disorder with jean: Status: Acute Code(s): F31.10 - Bipolar disorder, current episode manic without psychotic features, unspecified (2) PTSD (post-traumatic stress disorder): Status: Acute Code(s): F43.10 - Post-traumatic stress disorder, unspecified Plan Patient patient is a 23-year-old female with history of bipolar disorder and PTSD who presented to ER via section 12 due to manic behavior secondary to increased marijuana use. Plan: CV 15 minutes safety check Continue home medications Obtain collateral Encourage groups Discharge planning 05/16: delusional. grandiose. +AH. +VH. denies SI/HI. Active on unit. medication compliant. Per nursing, slept 3 hours last night. Pt stated, I feel good. Bradly and Dionicio are leaving me gifts. They are the same person. He leaves me food mostly. I asked him to play music and he flushed the toilet. We talk telepathically . When asked why she was walking around the unit without clothes on last evening; pt stated, I was trying to hard to not be naked. I was following Lucifier from room to room. He knows my purpose is healing . Pt denies side effects from medications. Start: Depakote 250mg PO BID 05/17: Pt continues similar to yesterday. delusional. grandiose. +AH. +VH. denies SI/HI. Per nursing, slept 6 hours last night. placed on 1:1 safety checks yesterday d/t disorganized behavior. Pt stated, It's so weird that my room is next door to Dionicio. The [place] wedding ceremony is confusing . medication compliant. Spoke to patient's mother yesterday afternoon via phone, reviewed past medication trials; mother was notified of patient starting on Depakote. 05/18: Pt continues delusional, disorganized. Depakote level 37.6 on 05/18/24. Pt reports she was crawling on the floor and licking things because it's part of the [place] wedding . Continues to talk about Dionicio being on the unit and talking with her. Depakote increased to 500mg PO BID Klonopin decreased to 1mg PO BID 05/19 keep same treatment. The patient agreed that I can contact her mother at [phone]. 05/20 I lowered her Depakote yesterday after speaking with her parents. Still grossly disorganized. 05/21: Napping on sensory room floor. states she does not want to go to her room d/t it smelling . Pt continues delusional and disorganized. Depakote level 37.6 on 05/18/24. No reports of patient vomiting the past 2 days. pt was given additional 250mg dose today, however proceeded to vomit 3 hours later. Depakote DC'd. Start [place] 300mg PO BID; monitor for side effects. Klonopin decreased to 1mg PO bedtime and 0.5mg PO daily She continues to talk about Dionicio being on the unit and giving her food. Pt stated, Dionicio is hanging around. I'm not crazy. Everyone knows he's here too . denies SI/HI/VH/AH. per nursing, pt slept 3-4 hours last night. T/W spoke to pt's mother, Sara, regarding treatment plan. Sara reports she is considering having pt go to substance abuse program after discharge for marijuana use. 05/22: Napping throughout the day. Pt continues delusional however, more organized during conversation. Pt stated, I keep doing Yoga because in my body is strong than Dionicio's body is strong . She denies any side effects from starting [place]; per nursing, pt did not vomit last night or this morning. She reportedly slept 6 hours last night. Continue current tx plan. 05/23: jean improving on lithium. increase lithium to 450 BID. c/o feeling like a zombie. agreeable to DC risperidone and reschedule all latuda to HS. otherwise continue current mgmt. case d/w pt's mother on the phone. Reason for continued inpatient stay Substantial Risk for: inability to function Time Spent With Patient Time: Total time managing care of this patient today _35___ minutes.
[2024-05-23 20:00] VITALS: BP 132/69; PULSE 110; RESP 16; TEMP 36.4; O2SAT 97
[2024-05-23] MEDS: clonazePAM 1 MG TABLET PO (21:08)
[2024-05-23] MEDS: Lithium Carbonate ER 450 MG TABLET.ER PO (21:08)
[2024-05-23] MEDS: Lurasidone HCl 40 MG TABLET PO (21:08)
[2024-05-24] MEDS: hydrOXYzine HCL 25 MG TABLET PO ×2 (03:29→13:24)
[2024-05-24 07:00] VITALS: BMI 28.5
[2024-05-24 07:39] VITALS: BP 96/54; PULSE 81; RESP 16; TEMP 36.3; O2SAT 99
[2024-05-24] MEDS: Lithium Carbonate ER 450 MG TABLET.ER PO (08:13)
[2024-05-24] MEDS: clonazePAM 0.5 MG TABLET PO (08:13)
[2024-05-24] MEDS: Nicotine 21 MG PATCH.TD24 TRANSDERMA (10:58)
[2024-05-24] MEDS: Nicotine Polacrilex Lozenge 4 MG LOZENGE BUCCAL ×3 (10:58→20:18)
--- NOTE | 2024-05-24 12:02 | HO.PSYCHPN ---
Subjective Subjective Date of Service: 05/24/24 Reason For Visit: Crisis Subjective Notes: Conditional Voluntary Interim History: Active on unit, social with peers. Pt continues delusional; pt stated, I think I'm getting today to the kadi that killed the ADVERTISING EXECUTIVE. I just want to date him first . She denies any medication side effects, other than feeling tired. per nursing, slept 8 hours. denies SI/HI/VH/AH. DC klonopin 0.5mg PO daily Medication Compliance: Yes Side effects from medications: No Attending Groups: Yes Mental Status Exam Mental Status Exam Narrative: Pt is alert and oriented; behavior is cooperative, friendly; dressed in casual attire; mood is described as tired ; eye contact appropriate; Speech is normal rate, volume, not pressured; grandiose, delusional, more organized during conversation, logical at times; denies SI/HI/VH. +AH. Diagnostics Vital Signs (24Hr): Vital Signs - 24 hr 05/23/24 20:00 05/24/24 07:39 Temperature 97.6 F 97.3 F Pulse Rate 110 H 81 Respiratory Rate 16 16 Blood Pressure 132/69 96/54 L Pulse Oximetry 97 99 Oxygen Delivery Method Room Air Room Air BMI result Body Mass Index 28.5 Labs 05/12/24 09:33 05/15/24 13:53 Medications Medications Current Medications Acetaminophen (Acetaminophen 325 Mg Tablet) 650 mg PO Q6H PRN PRN Reason: Headache/Pain, Scale 1-10 Last Admin: 05/21/24 19:49 Dose: 650 mg Al Hydroxide/Mg Hydroxide (Magnesium Hydrox/Alum Hydrox 30 Ml Oral.Susp) 30 ml PO Q6H PRN PRN Reason: Heartburn/Nausea Last Admin: 05/18/24 18:59 Dose: 30 ml Albuterol Sulfate (Albuterol Sulfate 90 Mcg 8 Gm Inhaler) 1 puff INHALE RQ6H PRN PRN Reason: Shortness of Breath Calcium Carbonate (Calcium Carbonate 750 Mg Tab.Chew) 750 mg PO Q6H PRN PRN Reason: Heartburn Last Admin: 05/18/24 21:34 Dose: 750 mg Clonazepam (Clonazepam 1 Mg Tablet) 1 mg PO BEDTIME LEE Last Admin: 05/23/24 21:08 Dose: 1 mg Clonazepam (Clonazepam 0.5 Mg Tablet) 0.5 mg PO DAILY LEE Last Admin: 05/24/24 08:13 Dose: 0.5 mg Fluticasone Propionate (Fluticasone Propionate Nasal 16 Gm [place]) 1 spray NOSTRIL-B DAILY PRN PRN Reason: Allergic Symptoms Last Admin: 05/19/24 14:13 Dose: 1 spray Hydroxyzine HCl (Hydroxyzine Hcl 25 Mg Tablet) 25 mg PO Q6H PRN PRN Reason: mild anxiety Last Admin: 05/24/24 03:29 Dose: 25 mg [place] Carbonate ([place] Carbonate Er 450 Mg Tablet.Er) 450 mg PO BID LEE Last Admin: 05/24/24 08:13 Dose: 450 mg Lurasidone HCl (Lurasidone Hcl 80 Mg Tablet) 80 mg PO BEDTIME LEE Magnesium Hydroxide (Milk Of Magnesia 30 Ml Oral.Susp) 30 ml PO DAILY PRN PRN Reason: Constipation Nicotine (Nicotine 21 Mg Patch.Td24) 21 mg TRANSDERMA DAILY PRN PRN Reason: Nicotine Cravings Last Admin: 05/24/24 10:58 Dose: 21 mg Nicotine Polacrilex (Nicotine Polacrilex Lozenge 4 Mg Lozenge) 4 mg BUCCAL Q2H PRN PRN Reason: Nicotine Cravings Last Admin: 05/24/24 10:58 Dose: 4 mg Ondansetron HCl (Ondansetron Odt 8 Mg Tab.Rapdis) 8 mg TRANSLINGU Q12H PRN PRN Reason: Nausea and Vomiting Trazodone HCl (Trazodone Hcl 50 Mg Tablet) 50 mg PO BEDTIME MRX1 PRN PRN Reason: Insomnia Allergies Allergies Allergy/AdvReac Type Severity Reaction Status Date / Time lithium AdvReac Intermediate tremors Uncoded 05/14/24 16:39 olanzapine AdvReac Intermediate ortho hotn Uncoded 05/14/24 16:39 Assessment & Plan Assessment & Plan (1) Bipolar I disorder with jean: Status: Acute Code(s): F31.10 - Bipolar disorder, current episode manic without psychotic features, unspecified (2) PTSD (post-traumatic stress disorder): Status: Acute Code(s): F43.10 - Post-traumatic stress disorder, unspecified Plan Patient patient is a 23-year-old female with history of bipolar disorder and PTSD who presented to ER via section 12 due to manic behavior secondary to increased marijuana use. Plan: CV 15 minutes safety check Continue home medications Obtain collateral Encourage groups Discharge planning 05/16: delusional. grandiose. +AH. +VH. denies SI/HI. Active on unit. medication compliant. Per nursing, slept 3 hours last night. Pt stated, I feel good. Bradly and Dionicio are leaving me gifts. They are the same person. He leaves me food mostly. I asked him to play music and he flushed the toilet. We talk telepathically . When asked why she was walking around the unit without clothes on last evening; pt stated, I was trying to hard to not be naked. I was following Lucifier from room to room. He knows my purpose is healing . Pt denies side effects from medications. Start: Depakote 250mg PO BID 05/17: Pt continues similar to yesterday. delusional. grandiose. +AH. +VH. denies SI/HI. Per nursing, slept 6 hours last night. placed on 1:1 safety checks yesterday d/t disorganized behavior. Pt stated, It's so weird that my room is next door to Dionicio. The [place] wedding ceremony is confusing . medication compliant. Spoke to patient's mother yesterday afternoon via phone, reviewed past medication trials; mother was notified of patient starting on Depakote. 05/18: Pt continues delusional, disorganized. Depakote level 37.6 on 05/18/24. Pt reports she was crawling on the floor and licking things because it's part of the [place] wedding . Continues to talk about Dionicio being on the unit and talking with her. Depakote increased to 500mg PO BID Klonopin decreased to 1mg PO BID 05/19 keep same treatment. The patient agreed that I can contact her mother at [phone]. 05/20 I lowered her Depakote yesterday after speaking with her parents. Still grossly disorganized. 05/21: Napping on sensory room floor. states she does not want to go to her room d/t it smelling . Pt continues delusional and disorganized. Depakote level 37.6 on 05/18/24. No reports of patient vomiting the past 2 days. pt was given additional 250mg dose today, however proceeded to vomit 3 hours later. Depakote DC'd. Start [place] 300mg PO BID; monitor for side effects. Klonopin decreased to 1mg PO bedtime and 0.5mg PO daily She continues to talk about Dionicio being on the unit and giving her food. Pt stated, Dionicio is hanging around. I'm not crazy. Everyone knows he's here too . denies SI/HI/VH/AH. per nursing, pt slept 3-4 hours last night. T/W spoke to pt's mother, Sara, regarding treatment plan. Sara reports she is considering having pt go to substance abuse program after discharge for marijuana use. 05/22: Napping throughout the day. Pt continues delusional however, more organized during conversation. Pt stated, I keep doing Yoga because in my body is strong than Dionicio's body is strong . She denies any side effects from starting [place]; per nursing, pt did not vomit last night or this morning. She reportedly slept 6 hours last night. Continue current tx plan. 05/23: jean improving on lithium. increase lithium to 450 BID. c/o feeling like a zombie. agreeable to DC HS risperidone and reschedule all latuda to HS. otherwise continue current mgmt. case d/w pt's mother on the phone. 05/24: Active on unit, social with peers. Pt continues delusional; pt stated, I think I'm getting today to the kadi that killed the ADVERTISING EXECUTIVE. I just want to date him first . She denies any medication side effects, other than feeling tired. per nursing, slept 8 hours. denies SI/HI/VH/AH. DC klonopin 0.5mg PO daily Patient educated on: diagnosis and medication risk/benefits Reason for continued inpatient stay Substantial Risk for: med/psych decompensation Time Spent With Patient Time: Total time managing care of this patient today _20___ minutes.
[2024-05-24 20:00] VITALS: BP 130/83; PULSE 113; RESP 16; O2SAT 99
[2024-05-24] MEDS: clonazePAM 1 MG TABLET PO (20:50)
[2024-05-24] MEDS: Lurasidone HCl 80 MG TABLET PO (20:50)
[2024-05-24] MEDS: Acetaminophen 325 MG TABLET 650 MG PO (22:12)
[2024-05-25 08:15] VITALS: BP 124/75; PULSE 102; RESP 16; TEMP 36.3; O2SAT 98
[2024-05-25] MEDS: Nicotine 21 MG PATCH.TD24 TRANSDERMA (08:35)
[2024-05-25] MEDS: Nicotine Polacrilex Lozenge 4 MG LOZENGE BUCCAL ×6 (08:36→22:21)
[2024-05-25] MEDS: Lithium Carbonate ER 450 MG TABLET.ER PO (09:58)
--- NOTE | 2024-05-25 10:47 | P.PNPSI_ITS ---
Subjective Subjective Date of Service: 05/25/24 Reason For Visit: Crisis Subjective Notes: Conditional Voluntary Interim History: Active on unit, social with peers. attending groups. observed dancing around unit. Pt continues delusional; pt stated, I'm supposed to go to the court house today to get . denies any medication side effects. Organized at times during conversation. Medication Compliance: Intermittent Side effects from medications: No Attending Groups: Yes Mental Status Exam Mental Status Exam Narrative: Pt is alert and oriented; behavior is cooperative, friendly; dressed in casual attire; mood is described as good ; eye contact appropriate; Speech is normal rate, volume, not pressured; grandiose, delusional, more organized during conversation, logical at times; dancing around unit; denies SI/HI/VH. +AH. Diagnostics Vital Signs (24Hr): Vital Signs - 24 hr 05/24/24 20:00 05/25/24 08:15 Temperature 97.3 F Pulse Rate 113 H 102 H Respiratory Rate 16 16 Blood Pressure 130/83 124/75 Pulse Oximetry 99 98 Oxygen Delivery Method Room Air Room Air BMI result Body Mass Index 28.5 Labs 05/12/24 09:33 05/15/24 13:53 Medications Medications Current Medications Acetaminophen (Acetaminophen 325 Mg Tablet) 650 mg PO Q6H PRN PRN Reason: Headache/Pain, Scale 1-10 Last Admin: 05/24/24 22:12 Dose: 650 mg Al Hydroxide/Mg Hydroxide (Magnesium Hydrox/Alum Hydrox 30 Ml Oral.Susp) 30 ml PO Q6H PRN PRN Reason: Heartburn/Nausea Last Admin: 05/18/24 18:59 Dose: 30 ml Albuterol Sulfate (Albuterol Sulfate 90 Mcg 8 Gm Inhaler) 1 puff INHALE RQ6H PRN PRN Reason: Shortness of Breath Calcium Carbonate (Calcium Carbonate 750 Mg Tab.Chew) 750 mg PO Q6H PRN PRN Reason: Heartburn Last Admin: 05/18/24 21:34 Dose: 750 mg Clonazepam (Clonazepam 1 Mg Tablet) 1 mg PO BEDTIME LEE Last Admin: 05/24/24 20:50 Dose: 1 mg Fluticasone Propionate (Fluticasone Propionate Nasal 16 Gm [place]) 1 spray NOSTRIL-B DAILY PRN PRN Reason: Allergic Symptoms Last Admin: 05/19/24 14:13 Dose: 1 spray Hydroxyzine HCl (Hydroxyzine Hcl 25 Mg Tablet) 25 mg PO Q6H PRN PRN Reason: mild anxiety Last Admin: 05/24/24 13:24 Dose: 25 mg [place] Carbonate ([place] Carbonate Er 450 Mg Tablet.Er) 450 mg PO BID [facility] Last Admin: 05/25/24 09:58 Dose: 450 mg Lurasidone HCl (Lurasidone Hcl 80 Mg Tablet) 80 mg PO BEDTIME LEE Last Admin: 05/24/24 20:50 Dose: 80 mg Magnesium Hydroxide (Milk Of Magnesia 30 Ml Oral.Susp) 30 ml PO DAILY PRN PRN Reason: Constipation Nicotine (Nicotine 21 Mg Patch.Td24) 21 mg TRANSDERMA DAILY PRN PRN Reason: Nicotine Cravings Last Admin: 05/25/24 08:35 Dose: 21 mg Nicotine Polacrilex (Nicotine Polacrilex Lozenge 4 Mg Lozenge) 4 mg BUCCAL Q2H PRN PRN Reason: Nicotine Cravings Last Admin: 05/25/24 08:36 Dose: 4 mg Ondansetron HCl (Ondansetron Odt 8 Mg Tab.Rapdis) 8 mg TRANSLINGU Q12H PRN PRN Reason: Nausea and Vomiting Trazodone HCl (Trazodone Hcl 50 Mg Tablet) 50 mg PO BEDTIME MRX1 PRN PRN Reason: Insomnia Allergies Allergies Allergy/AdvReac Type Severity Reaction Status Date / Time lithium AdvReac Intermediate tremors Uncoded 05/14/24 16:39 olanzapine AdvReac Intermediate ortho hotn Uncoded 05/14/24 16:39 Assessment & Plan Assessment & Plan (1) Bipolar I disorder with jean: Status: Acute Code(s): F31.10 - Bipolar disorder, current episode manic without psychotic features, unspecified (2) PTSD (post-traumatic stress disorder): Status: Acute Code(s): F43.10 - Post-traumatic stress disorder, unspecified Plan Patient patient is a 23-year-old female with history of bipolar disorder and PTSD who presented to ER via section 12 due to manic behavior secondary to increased marijuana use. Plan: CV 15 minutes safety check Continue home medications Obtain collateral Encourage groups Discharge planning 05/16: delusional. grandiose. +AH. +VH. denies SI/HI. Active on unit. medication compliant. Per nursing, slept 3 hours last night. Pt stated, I feel good. Bradly and Dionicio are leaving me gifts. They are the same person. He leaves me food mostly. I asked him to play music and he flushed the toilet. We talk telepathically . When asked why she was walking around the unit without clothes on last evening; pt stated, I was trying to hard to not be naked. I was following Lucifier from room to room. He knows my purpose is healing . Pt denies side effects from medications. Start: Depakote 250mg PO BID 05/17: Pt continues similar to yesterday. delusional. grandiose. +AH. +VH. denies SI/HI. Per nursing, slept 6 hours last night. placed on 1:1 safety checks yesterday d/t disorganized behavior. Pt stated, It's so weird that my room is next door to Dionicio. The [place] wedding ceremony is confusing . medication compliant. Spoke to patient's mother yesterday afternoon via phone, reviewed past medication trials; mother was notified of patient starting on Depakote. 05/18: Pt continues delusional, disorganized. Depakote level 37.6 on 05/18/24. Pt reports she was crawling on the floor and licking things because it's part of the [place] wedding . Continues to talk about Dionicio being on the unit and talking with her. Depakote increased to 500mg PO BID Klonopin decreased to 1mg PO BID 05/19 keep same treatment. The patient agreed that I can contact her mother at [phone]. 05/20 I lowered her Depakote yesterday after speaking with her parents. Still grossly disorganized. 05/21: Napping on sensory room floor. states she does not want to go to her room d/t it smelling . Pt continues delusional and disorganized. Depakote level 37.6 on 05/18/24. No reports of patient vomiting the past 2 days. pt was given additional 250mg dose today, however proceeded to vomit 3 hours later. Depakote DC'd. Start [place] 300mg PO BID; monitor for side effects. Klonopin decreased to 1mg PO bedtime and 0.5mg PO daily She continues to talk about Dionicio being on the unit and giving her food. Pt stated, Dionicio is hanging around. I'm not crazy. Everyone knows he's here too . denies SI/HI/VH/AH. per nursing, pt slept 3-4 hours last night. T/W spoke to pt's mother, Sara, regarding treatment plan. Sara reports she is considering having pt go to substance abuse program after discharge for marijuana use. 05/22: Napping throughout the day. Pt continues delusional however, more organized during conversation. Pt stated, I keep doing Yoga because in my body is strong than Dionicio's body is strong . She denies any side effects from starting [place]; per nursing, pt did not vomit last night or this morning. She reportedly slept 6 hours last night. Continue current tx plan. 05/23: jean improving on lithium. increase lithium to 450 BID. c/o feeling like a zombie. agreeable to DC HS risperidone and reschedule all latuda to HS. otherwise continue current mgmt. case d/w pt's mother on the phone. 05/24: Active on unit, social with peers. Pt continues delusional; pt stated, I think I'm getting today to the kadi that killed the HOSPITALITY RECRUITER. I just want to date him first . She denies any medication side effects, other than feeling tired. per nursing, slept 8 hours. denies SI/HI/VH/AH. DC klonopin 0.5mg PO daily 05/25: observed dancing around unit. Pt continues delusional; pt stated, I'm supposed to go to the court house today to get . denies any medication side effects. Organized at times during conversation. T/W spoke with patient's mother, Sara, via phone; updated on treatment plan. Patient educated on: medication risk/benefits Reason for continued inpatient stay Substantial Risk for: med/psych decompensation Time Spent With Patient Time: Total time managing care of this patient today _20___ minutes.
[2024-05-25] MEDS: Acetaminophen 325 MG TABLET 650 MG PO (17:19)
[2024-05-25 20:00] VITALS: BP 117/86; PULSE 100; RESP 16; TEMP 36.9; O2SAT 98
[2024-05-25] MEDS: clonazePAM 1 MG TABLET PO (22:21)
[2024-05-25] MEDS: Lurasidone HCl 80 MG TABLET PO (22:22)
[2024-05-26 07:45] VITALS: BP 90/53; PULSE 80; RESP 14; TEMP 36.8; O2SAT 97
[2024-05-26] MEDS: Lithium Carbonate ER 450 MG TABLET.ER PO (08:42)
--- NOTE | 2024-05-26 11:10 | P.PNPSI_ITS ---
Subjective Subjective Date of Service: 05/26/24 Reason For Visit: Crisis Subjective Notes: Conditional Voluntary Interim History: Pt slept about 8 hrs. She continues to present with erotomanic delusions of getting with individual who recently murdered insurance HAIR SALON MANAGER. She reports you know when someone makes a mistake but is a good person, he is like that. He reports this person is of English descendent and that English people here in the hospital are related to him and want her to him. She reports he was here earlier in the hospital, but she denies seeing him... I just know he was here. She declined lithium. She reports side effects with medications, but does agree to take it. We discussed that latuda has to be taken with at least 350 calories to be absorbed. will change to dinner time and will also increase the dose to 120mg. Mental Status Exam Mental Status Exam Narrative: Appearance: writing in her face, which she reports have synagogue meaning, poor hygiene, in NAD Behavior: cooperative Psychomotor: some intermittent agitation Speech: clear, regular rate/rhythm/volume, spontaneous TP: flights of ideas TC: wanting to do as delusions tell her including marrying someone she does not know Mood: good Affect: expansive SI: denies HI: none VH/AH: internally preoccupied Delusions: synagogue delusions, grandiose delusions and erotomanic delusions Insight/judgment: poor x 2. Memory/cog: alert, oriented to place, month, year not so much about situation (thinks is mother who has demons and therefore brought her here) Diagnostics Vital Signs (24Hr): Vital Signs - 24 hr 05/25/24 20:00 05/26/24 07:45 Temperature 98.4 F 98.3 F Pulse Rate 100 80 Respiratory Rate 16 14 Blood Pressure 117/86 90/53 L Pulse Oximetry 98 97 Oxygen Delivery Method Room Air Room Air BMI result Body Mass Index 28.5 Labs 05/12/24 09:33 05/15/24 13:53 Medications Medications Current Medications Acetaminophen (Acetaminophen 325 Mg Tablet) 650 mg PO Q6H PRN PRN Reason: Headache/Pain, Scale 1-10 Last Admin: 05/25/24 17:19 Dose: 650 mg Al Hydroxide/Mg Hydroxide (Magnesium Hydrox/Alum Hydrox 30 Ml Oral.Susp) 30 ml PO Q6H PRN PRN Reason: Heartburn/Nausea Last Admin: 05/18/24 18:59 Dose: 30 ml Albuterol Sulfate (Albuterol Sulfate 90 Mcg 8 Gm Inhaler) 1 puff INHALE RQ6H PRN PRN Reason: Shortness of Breath Calcium Carbonate (Calcium Carbonate 750 Mg Tab.Chew) 750 mg PO Q6H PRN PRN Reason: Heartburn Last Admin: 05/18/24 21:34 Dose: 750 mg Clonazepam (Clonazepam 1 Mg Tablet) 1 mg PO BEDTIME [facility] Last Admin: 05/25/24 22:21 Dose: 1 mg Fluticasone Propionate (Fluticasone Propionate Nasal 16 Gm [place]) 1 spray NOSTRIL-B DAILY PRN PRN Reason: Allergic Symptoms Last Admin: 05/19/24 14:13 Dose: 1 spray Hydroxyzine HCl (Hydroxyzine Hcl 25 Mg Tablet) 25 mg PO Q6H PRN PRN Reason: mild anxiety Last Admin: 05/24/24 13:24 Dose: 25 mg [place] Carbonate ([place] Carbonate Er 450 Mg Tablet.Er) 450 mg PO BID [facility] Last Admin: 05/26/24 08:42 Dose: 450 mg Lurasidone HCl (Lurasidone Hcl 80 Mg Tablet) 80 mg PO BEDTIME [facility] Last Admin: 05/25/24 22:22 Dose: 80 mg Magnesium Hydroxide (Milk Of Magnesia 30 Ml Oral.Susp) 30 ml PO DAILY PRN PRN Reason: Constipation Nicotine (Nicotine 21 Mg Patch.Td24) 21 mg TRANSDERMA DAILY PRN PRN Reason: Nicotine Cravings Last Admin: 05/25/24 08:35 Dose: 21 mg Nicotine Polacrilex (Nicotine Polacrilex Lozenge 4 Mg Lozenge) 4 mg BUCCAL Q2H PRN PRN Reason: Nicotine Cravings Last Admin: 05/25/24 22:21 Dose: 4 mg Ondansetron HCl (Ondansetron Odt 8 Mg Tab.Rapdis) 8 mg TRANSLINGU Q12H PRN PRN Reason: Nausea and Vomiting Trazodone HCl (Trazodone Hcl 50 Mg Tablet) 50 mg PO BEDTIME MRX1 PRN PRN Reason: Insomnia Allergies Allergies Allergy/AdvReac Type Severity Reaction Status Date / Time lithium AdvReac Intermediate tremors Uncoded 05/14/24 16:39 olanzapine AdvReac Intermediate ortho hotn Uncoded 05/14/24 16:39 Assessment & Plan Assessment & Plan (1) Bipolar I disorder with jean: Status: Acute Code(s): F31.10 - Bipolar disorder, current episode manic without psychotic features, unspecified Assessment and Plan: with erotomanic, synagogue delusions (2) PTSD (post-traumatic stress disorder): Status: Acute Code(s): F43.10 - Post-traumatic stress disorder, unspecified Plan Patient patient is a 23-year-old female with history of bipolar disorder and PTSD who presented to ER via section 12 due to manic behavior secondary to increased marijuana use. Plan: CV 15 minutes safety check Continue home medications Obtain collateral Encourage groups Discharge planning 05/16: delusional. grandiose. +AH. +VH. denies SI/HI. Active on unit. medication compliant. Per nursing, slept 3 hours last night. Pt stated, I feel good. Bradly and Dionicio are leaving me gifts. They are the same person. He leaves me food mostly. I asked him to play music and he flushed the toilet. We talk telepathically . When asked why she was walking around the unit without clothes on last evening; pt stated, I was trying to hard to not be naked. I was following Lucifier from room to room. He knows my purpose is healing . Pt denies side effects from medications. Start: Depakote 250mg PO BID 05/17: Pt continues similar to yesterday. delusional. grandiose. +AH. +VH. denies SI/HI. Per nursing, slept 6 hours last night. placed on 1:1 safety checks yesterday d/t disorganized behavior. Pt stated, It's so weird that my room is next door to Dionicio. The [place] wedding ceremony is confusing . medication compliant. Spoke to patient's mother yesterday afternoon via phone, reviewed past medication trials; mother was notified of patient starting on Depakote. 05/18: Pt continues delusional, disorganized. Depakote level 37.6 on 05/18/24. Pt reports she was crawling on the floor and licking things because it's part of the [place] wedding . Continues to talk about Dionicio being on the unit and talking with her. Depakote increased to 500mg PO BID Klonopin decreased to 1mg PO BID 05/19 keep same treatment. The patient agreed that I can contact her mother at [phone]. 05/20 I lowered her Depakote yesterday after speaking with her parents. Still grossly disorganized. 05/21: Napping on sensory room floor. states she does not want to go to her room d/t it smelling . Pt continues delusional and disorganized. Depakote level 37.6 on 05/18/24. No reports of patient vomiting the past 2 days. pt was given additional 250mg dose today, however proceeded to vomit 3 hours later. Depakote DC'd. Start [place] 300mg PO BID; monitor for side effects. Klonopin decreased to 1mg PO bedtime and 0.5mg PO daily She continues to talk about Dionicio being on the unit and giving her food. Pt stated, Dionicio is hanging around. I'm not crazy. Everyone knows he's here too . denies SI/HI/VH/AH. per nursing, pt slept 3-4 hours last night. T/W spoke to pt's mother, Sara, regarding treatment plan. Sara reports she is considering having pt go to substance abuse program after discharge for marijuana use. 05/22: Napping throughout the day. Pt continues delusional however, more organized during conversation. Pt stated, I keep doing Yoga because in my body is strong than Dionicio's body is strong . She denies any side effects from starting [place]; per nursing, pt did not vomit last night or this morning. She reportedly slept 6 hours last night. Continue current tx plan. 05/23: jean improving on lithium. increase lithium to 450 BID. c/o feeling like a zombie. agreeable to DC HS risperidone and reschedule all latuda to HS. otherwise continue current mgmt. case d/w pt's mother on the phone. 05/24: Active on unit, social with peers. Pt continues delusional; pt stated, I think I'm getting today to the kadi that killed the HAIR SALON MANAGER. I just want to date him first . She denies any medication side effects, other than feeling tired. per nursing, slept 8 hours. denies SI/HI/VH/AH. DC klonopin 0.5mg PO daily 05/25: observed dancing around unit. Pt continues delusional; pt stated, I'm supposed to go to the court house today to get . denies any medication side effects. Organized at times during conversation. T/W spoke with patient's mother, Sara, via phone; updated on treatment plan. 05/26 refuses lithium, continues to present with erotomatic, some synagogue delusions,very impaired insight and judgment. change latuda to dinner time as it requires 350 calories to be absorbed and will increase it to 120mg, which pt agrees with. Reason for continued inpatient stay Substantial Risk for: inability to function Time Spent With Patient Time: Total time managing care of this patient today ____ minutes.
[2024-05-26] MEDS: Nicotine Polacrilex Lozenge 4 MG LOZENGE BUCCAL ×4 (11:20→18:25)
[2024-05-26] MEDS: Lurasidone HCl 40 MG TABLET 120 MG PO (17:22)
[2024-05-26] MEDS: Acetaminophen 325 MG TABLET 650 MG PO (18:25)
[2024-05-26] MEDS: hydrOXYzine HCL 25 MG TABLET PO (19:15)
[2024-05-26 20:00] VITALS: BP 103/59; PULSE 92; RESP 18; TEMP 36.5; O2SAT 97
[2024-05-26] MEDS: clonazePAM 1 MG TABLET PO (20:26)
[2024-05-27 08:00] VITALS: BP 85/49; PULSE 70; TEMP 36.4; O2SAT 99
[2024-05-27] MEDS: Lithium Carbonate ER 450 MG TABLET.ER PO ×2 (08:24→22:09)
[2024-05-27 08:41] VITALS: BP 107/73; PULSE 95; O2SAT 100
[2024-05-27] MEDS: Nicotine Polacrilex Lozenge 4 MG LOZENGE BUCCAL ×4 (09:22→17:17)
[2024-05-27] MEDS: hydrOXYzine HCL 25 MG TABLET PO (10:48)
--- NOTE | 2024-05-27 11:42 | P.PNPSI_ITS ---
Subjective Subjective Date of Service: 05/27/24 Reason For Visit: Crisis Interim History: Pt slept about 8 hrs. 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 She reports you know when someone makes a mistake but is a good person, he is like that. He reports this person is of [place] descendent and that [place] people here in the hospital are related to him and want her to him. She reports he was here earlier in the hospital, but she denies seeing him... I just know he was here. She declined lithium. She reports side effects with medications, but does agree to take it. We discussed that latuda has to be taken with at least 350 calories to be absorbed. will change to dinner time and will also increase the dose to 120mg. Review of Systems Review of Systems Yes all other systems are reviewed and are negative Mental Status Exam Mental Status Exam Narrative: Appearance: make up all over her face, as she is planning for her wedding, poor hygiene, in NAD Behavior: cooperative Psychomotor: some intermittent agitation Speech: clear, regular rate/rhythm/volume, spontaneous TP: flights of ideas TC: wanting to do as delusions tell her including marrying someone she does not know Mood: good Affect: expansive SI: denies HI: none VH/AH: internally preoccupied Delusions: confucianism delusions, grandiose delusions and erotomanic delusions Insight/judgment: poor x 2. Memory/cog: alert, oriented to place, month, year not so much about situation (thinks is mother who has demons and therefore brought her here) Diagnostics Vital Signs (24Hr): Vital Signs - 24 hr 05/26/24 20:00 05/27/24 08:00 05/27/24 08:41 Temperature 97.7 F 97.6 F Pulse Rate 92 70 95 Respiratory Rate 18 Blood Pressure 103/59 L 85/49 L 107/73 Pulse Oximetry 97 99 100 Oxygen Delivery Method Room Air Room Air Room Air BMI result Body Mass Index 28.5 Labs 05/12/24 09:33 05/15/24 13:53 Medications Medications Current Medications Acetaminophen (Acetaminophen 325 Mg Tablet) 650 mg PO Q6H PRN PRN Reason: Headache/Pain, Scale 1-10 Last Admin: 05/26/24 18:25 Dose: 650 mg Al Hydroxide/Mg Hydroxide (Magnesium Hydrox/Alum Hydrox 30 Ml Oral.Susp) 30 ml PO Q6H PRN PRN Reason: Heartburn/Nausea Last Admin: 05/18/24 18:59 Dose: 30 ml Albuterol Sulfate (Albuterol Sulfate 90 Mcg 8 Gm Inhaler) 1 puff INHALE RQ6H PRN PRN Reason: Shortness of Breath Calcium Carbonate (Calcium Carbonate 750 Mg Tab.Chew) 750 mg PO Q6H PRN PRN Reason: Heartburn Last Admin: 05/18/24 21:34 Dose: 750 mg Clonazepam (Clonazepam 1 Mg Tablet) 1 mg PO BEDTIME LEE Last Admin: 05/26/24 20:26 Dose: 1 mg Fluticasone Propionate (Fluticasone Propionate Nasal 16 Gm [place]) 1 spray NOSTRIL-B DAILY PRN PRN Reason: Allergic Symptoms Last Admin: 05/19/24 14:13 Dose: 1 spray Hydroxyzine HCl (Hydroxyzine Hcl 25 Mg Tablet) 25 mg PO Q6H PRN PRN Reason: mild anxiety Last Admin: 05/27/24 10:48 Dose: 25 mg [place] Carbonate ([place] Carbonate Er 450 Mg Tablet.Er) 450 mg PO BID [facility] Last Admin: 05/27/24 08:24 Dose: 450 mg Lurasidone HCl (Lurasidone Hcl 40 Mg Tablet) 120 mg PO DAILY@1700 [facility] Last Admin: 05/26/24 17:22 Dose: 120 mg Magnesium Hydroxide (Milk Of Magnesia 30 Ml Oral.Susp) 30 ml PO DAILY PRN PRN Reason: Constipation Nicotine (Nicotine 21 Mg Patch.Td24) 21 mg TRANSDERMA DAILY PRN PRN Reason: Nicotine Cravings Last Admin: 05/25/24 08:35 Dose: 21 mg Nicotine Polacrilex (Nicotine Polacrilex Lozenge 4 Mg Lozenge) 4 mg BUCCAL Q2H PRN PRN Reason: Nicotine Cravings Last Admin: 05/27/24 09:22 Dose: 4 mg Ondansetron HCl (Ondansetron Odt 8 Mg Tab.Rapdis) 8 mg TRANSLINGU Q12H PRN PRN Reason: Nausea and Vomiting Trazodone HCl (Trazodone Hcl 50 Mg Tablet) 50 mg PO BEDTIME MRX1 PRN PRN Reason: Insomnia Allergies Allergies Allergy/AdvReac Type Severity Reaction Status Date / Time lithium AdvReac Intermediate tremors Uncoded 05/14/24 16:39 olanzapine AdvReac Intermediate ortho hotn Uncoded 05/14/24 16:39 Assessment & Plan Assessment & Plan (1) Bipolar I disorder with jean: Status: Acute Code(s): F31.10 - Bipolar disorder, current episode manic without psychotic features, unspecified Assessment and Plan: with erotomanic, confucianism delusions (2) PTSD (post-traumatic stress disorder): Status: Acute Code(s): F43.10 - Post-traumatic stress disorder, unspecified Plan Patient patient is a 23-year-old female with history of bipolar disorder and PTSD who presented to ER via section 12 due to manic behavior secondary to increased marijuana use. Plan: CV 15 minutes safety check Continue home medications Obtain collateral Encourage groups Discharge planning 05/16: delusional. grandiose. +AH. +VH. denies SI/HI. Active on unit. medication compliant. Per nursing, slept 3 hours last night. Pt stated, I feel good. Bradly and Dionicio are leaving me gifts. They are the same person. He leaves me food mostly. I asked him to play music and he flushed the toilet. We talk telepathically . When asked why she was walking around the unit without clothes on last evening; pt stated, I was trying to hard to not be naked. I was following Lucifier from room to room. He knows my purpose is healing . Pt denies side effects from medications. Start: Depakote 250mg PO BID 05/17: Pt continues similar to yesterday. delusional. grandiose. +AH. +VH. denies SI/HI. Per nursing, slept 6 hours last night. placed on 1:1 safety checks yesterday d/t disorganized behavior. Pt stated, It's so weird that my room is next door to [facility]. The [place] wedding ceremony is confusing . medication compliant. Spoke to patient's mother yesterday afternoon via phone, reviewed past medication trials; mother was notified of patient starting on Depakote. 05/18: Pt continues delusional, disorganized. Depakote level 37.6 on 05/18/24. Pt reports she was crawling on the floor and licking things because it's part of the [place] wedding . Continues to talk about Dionicio being on the unit and talking with her. Depakote increased to 500mg PO BID Klonopin decreased to 1mg PO BID 05/19 keep same treatment. The patient agreed that I can contact her mother at [phone]. 05/20 I lowered her Depakote yesterday after speaking with her parents. Still grossly disorganized. 05/21: Napping on sensory room floor. states she does not want to go to her room d/t it smelling . Pt continues delusional and disorganized. Depakote level 37.6 on 05/18/24. No reports of patient vomiting the past 2 days. pt was given additional 250mg dose today, however proceeded to vomit 3 hours later. Depakote DC'd. Start [place] 300mg PO BID; monitor for side effects. Klonopin decreased to 1mg PO bedtime and 0.5mg PO daily She continues to talk about Dionicio being on the unit and giving her food. Pt stated, Dionicio is hanging around. I'm not crazy. Everyone knows he's here too . denies SI/HI/VH/AH. per nursing, pt slept 3-4 hours last night. T/W spoke to pt's mother, Sara, regarding treatment plan. Sara reports she is considering having pt go to substance abuse program after discharge for marijuana use. 05/22: Napping throughout the day. Pt continues delusional however, more organized during conversation. Pt stated, I keep doing Yoga because in my body is strong than Dionicio's body is strong . She denies any side effects from starting Stev[place]; per nursing, pt did not vomit last night or this morning. She reportedly slept 6 hours last night. Continue current tx plan. 05/23: jean improving on lithium. increase lithium to 450 BID. c/o feeling like a zombie. agreeable to [facility] risperidone and reschedule all latuda to HS. otherwise continue current mgmt. case d/w pt's mother on the phone. 05/24: Active on unit, social with peers. Pt continues delusional; pt stated, I think I'm getting today to the kadi that killed the PERSONAL PROPERTY APPRAISER. I just want to date him first . She denies any medication side effects, other than feeling tired. per nursing, slept 8 hours. denies SI/HI/VH/AH. DC klonopin 0.5mg PO daily 05/25: observed dancing around unit. Pt continues delusional; pt stated, I'm supposed to go to the court house today to get . denies any medication side effects. Organized at times during conversation. T/W spoke with patient's mother, Sara, via phone; updated on treatment plan. 05/26 refuses lithium, continues to present with erotomatic, some confucianism delusions,very impaired insight and judgment. change latuda to dinner time as it requires 350 calories to be absorbed and will increase it to 120mg, which pt agrees with. 05/27 continues to intermittently decline lithium Reason for continued inpatient stay Substantial Risk for: inability to function Time Spent With Patient Time: Total time managing care of this patient today ____ minutes.
[2024-05-27] MEDS: Lurasidone HCl 40 MG TABLET 120 MG PO (17:15)
[2024-05-27 20:00] VITALS: RESP 16
[2024-05-27] MEDS: clonazePAM 1 MG TABLET PO (22:10)
[2024-05-28] MEDS: Nicotine Polacrilex Lozenge 4 MG LOZENGE BUCCAL ×4 (07:43→19:03)
[2024-05-28 07:50] VITALS: BP 103/65; PULSE 80; RESP 16; TEMP 36.6; O2SAT 100
[2024-05-28] MEDS: Lithium Carbonate ER 450 MG TABLET.ER PO ×2 (08:28→22:26)
[2024-05-28] MEDS: Nicotine 21 MG PATCH.TD24 TRANSDERMA (08:57)
--- NOTE | 2024-05-28 10:06 | HO.PSYCHPN ---
Subjective Subjective Date of Service: 05/28/24 Reason For Visit: Crisis Subjective Notes: Conditional Voluntary Interim History: Cooperative. social with peers. organized during conversation regarding work, treatment and school. However, continues to present with delusions regarding getting to Dionicio ; pt also stated she believes one of the counselors on the unit is Dionicio's father d/t being Haitian . pt stated, I think he(the counselor) was told to spend time with me because I'm gong to his son soon . Pt requesting to have lithium switched to bedtime; lithium changed to 900mg PO bedtime. Patient states she is not interested in going to a program after here even though my mom wants me to. I just want to go home when I'm feeling better . Pt reports she is agreeable with having a visiting nurse to help with medication management. Medication Compliance: Intermittent Side effects from medications: No Attending Groups: Yes Mental Status Exam Mental Status Exam Narrative: Pt is alert and oriented; behavior is cooperative, friendly,calm; dressed in casual attire; mood is described as good ; eye contact appropriate; Speech is normal rate, volume, not pressured; grandiose, delusional, more organized during conversation regarding school, work, treatment; denies SI/HI/VH/AH Diagnostics Vital Signs (24Hr): Vital Signs - 24 hr 05/27/24 20:00 05/28/24 07:50 Temperature 97.9 F Pulse Rate 80 Respiratory Rate 16 16 Blood Pressure 103/65 Pulse Oximetry 100 Oxygen Delivery Method Room Air BMI result Body Mass Index 28.5 Labs 05/12/24 09:33 05/15/24 13:53 Medications Medications Current Medications Acetaminophen (Acetaminophen 325 Mg Tablet) 650 mg PO Q6H PRN PRN Reason: Headache/Pain, Scale 1-10 Last Admin: 05/26/24 18:25 Dose: 650 mg Al Hydroxide/Mg Hydroxide (Magnesium Hydrox/Alum Hydrox 30 Ml Oral.Susp) 30 ml PO Q6H PRN PRN Reason: Heartburn/Nausea Last Admin: 05/18/24 18:59 Dose: 30 ml Albuterol Sulfate (Albuterol Sulfate 90 Mcg 8 Gm Inhaler) 1 puff INHALE RQ6H PRN PRN Reason: Shortness of Breath Calcium Carbonate (Calcium Carbonate 750 Mg Tab.Chew) 750 mg PO Q6H PRN PRN Reason: Heartburn Last Admin: 05/18/24 21:34 Dose: 750 mg Clonazepam (Clonazepam 1 Mg Tablet) 1 mg PO BEDTIME [facility] Last Admin: 05/27/24 22:10 Dose: 1 mg Fluticasone Propionate (Fluticasone Propionate Nasal 16 Gm [place]) 1 spray NOSTRIL-B DAILY PRN PRN Reason: Allergic Symptoms Last Admin: 05/19/24 14:13 Dose: 1 spray Hydroxyzine HCl (Hydroxyzine Hcl 25 Mg Tablet) 25 mg PO Q6H PRN PRN Reason: mild anxiety Last Admin: 05/27/24 10:48 Dose: 25 mg [place] Carbonate ([place] Carbonate Er 450 Mg Tablet.Er) 450 mg PO BID [facility] Last Admin: 05/28/24 08:28 Dose: 450 mg Lurasidone HCl (Lurasidone Hcl 40 Mg Tablet) 120 mg PO DAILY@1700 [facility] Last Admin: 05/27/24 17:15 Dose: 120 mg Magnesium Hydroxide (Milk Of Magnesia 30 Ml Oral.Susp) 30 ml PO DAILY PRN PRN Reason: Constipation Nicotine (Nicotine 21 Mg Patch.Td24) 21 mg TRANSDERMA DAILY PRN PRN Reason: Nicotine Cravings Last Admin: 05/28/24 08:57 Dose: 21 mg Nicotine Polacrilex (Nicotine Polacrilex Lozenge 4 Mg Lozenge) 4 mg BUCCAL Q2H PRN PRN Reason: Nicotine Cravings Last Admin: 05/28/24 07:43 Dose: 4 mg Ondansetron HCl (Ondansetron Odt 8 Mg Tab.Rapdis) 8 mg TRANSLINGU Q12H PRN PRN Reason: Nausea and Vomiting Trazodone HCl (Trazodone Hcl 50 Mg Tablet) 50 mg PO BEDTIME MRX1 PRN PRN Reason: Insomnia Allergies Allergies Allergy/AdvReac Type Severity Reaction Status Date / Time lithium AdvReac Intermediate tremors Uncoded 05/14/24 16:39 olanzapine AdvReac Intermediate ortho hotn Uncoded 05/14/24 16:39 Assessment & Plan Assessment & Plan (1) Bipolar I disorder with jean: Status: Acute Code(s): F31.10 - Bipolar disorder, current episode manic without psychotic features, unspecified Assessment and Plan: with erotomanic, zoroastrianism delusions (2) PTSD (post-traumatic stress disorder): Status: Acute Code(s): F43.10 - Post-traumatic stress disorder, unspecified Plan Patient patient is a 23-year-old female with history of bipolar disorder and PTSD who presented to ER via section 12 due to manic behavior secondary to increased marijuana use. Plan: CV 15 minutes safety check Continue home medications Obtain collateral Encourage groups Discharge planning 05/16: delusional. grandiose. +AH. +VH. denies SI/HI. Active on unit. medication compliant. Per nursing, slept 3 hours last night. Pt stated, I feel good. Bradly and Dionicio are leaving me gifts. They are the same person. He leaves me food mostly. I asked him to play music and he flushed the toilet. We talk telepathically . When asked why she was walking around the unit without clothes on last evening; pt stated, I was trying to hard to not be naked. I was following Lucifier from room to room. He knows my purpose is healing . Pt denies side effects from medications. Start: Depakote 250mg PO BID 05/17: Pt continues similar to yesterday. delusional. grandiose. +AH. +VH. denies SI/HI. Per nursing, slept 6 hours last night. placed on 1:1 safety checks yesterday d/t disorganized behavior. Pt stated, It's so weird that my room is next door to Dionicio. The [place] wedding ceremony is confusing . medication compliant. Spoke to patient's mother yesterday afternoon via phone, reviewed past medication trials; mother was notified of patient starting on Depakote. 05/18: Pt continues delusional, disorganized. Depakote level 37.6 on 05/18/24. Pt reports she was crawling on the floor and licking things because it's part of the [place] wedding . Continues to talk about Dionicio being on the unit and talking with her. Depakote increased to 500mg PO BID Klonopin decreased to 1mg PO BID 05/19 keep same treatment. The patient agreed that I can contact her mother at [phone]. 05/20 I lowered her Depakote yesterday after speaking with her parents. Still grossly disorganized. 05/21: Napping on sensory room floor. states she does not want to go to her room d/t it smelling . Pt continues delusional and disorganized. Depakote level 37.6 on 05/18/24. No reports of patient vomiting the past 2 days. pt was given additional 250mg dose today, however proceeded to vomit 3 hours later. Depakote DC'd. Start [place] 300mg PO BID; monitor for side effects. Klonopin decreased to 1mg PO bedtime and 0.5mg PO daily She continues to talk about Dionicio being on the unit and giving her food. Pt stated, Dionicio is hanging around. I'm not crazy. Everyone knows he's here too . denies SI/HI/VH/AH. per nursing, pt slept 3-4 hours last night. T/W spoke to pt's mother, Sara, regarding treatment plan. Sara reports she is considering having pt go to substance abuse program after discharge for marijuana use. 05/22: Napping throughout the day. Pt continues delusional however, more organized during conversation. Pt stated, I keep doing Yoga because in my body is strong than Dionicio's body is strong . She denies any side effects from starting [place]; per nursing, pt did not vomit last night or this morning. She reportedly slept 6 hours last night. Continue current tx plan. 05/23: jena improving on lithium. increase lithium to 450 BID. c/o feeling like a zombie. agreeable to DC HS risperidone and reschedule all latuda to HS. otherwise continue current mgmt. case d/w pt's mother on the phone. 05/24: Active on unit, social with peers. Pt continues delusional; pt stated, I think I'm getting today to the kadi that killed the [employer]ERSONAL [employer] MANAGER. I just want to date him first . She denies any medication side effects, other than feeling tired. per nursing, slept 8 hours. denies SI/HI/VH/AH. DC klonopin 0.5mg PO daily 05/25: observed dancing around unit. Pt continues delusional; pt stated, I'm supposed to go to the court house today to get . denies any medication side effects. Organized at times during conversation. T/W spoke with patient's mother, Sara, via phone; updated on treatment plan. 05/26 refuses lithium, continues to present with erotomatic, some zoroastrianism delusions,very impaired insight and judgment. change latuda to dinner time as it requires 350 calories to be absorbed and will increase it to 120mg, which pt agrees with. 05/27 continues to intermittently decline lithium 05/28: Cooperative. social with peers. organized during conversation regarding work, treatment and school. However, continues to present with delusions regarding getting to Dionicio ; pt also stated she believes one of the counselors on the unit is Dionicio's father d/t being [place]ian . pt stated, I think he(the counselor) was told to spend time with me because I'm gong to his son soon . Pt requesting to have lithium switched to bedtime; lithium changed to 900mg PO bedtime. Patient states she is not interested in going to a program after here even though my mom wants me to. I just want to go home when I'm feeling better . Pt reports she is agreeable with having a visiting nurse to help with medication management. Patient educated on: diagnosis and medication risk/benefits Reason for continued inpatient stay Substantial Risk for: med/psych decompensation Time Spent With Patient Time: Total time managing care of this patient today _20___ minutes.
--- NOTE | 2024-05-28 13:17 | PC.NURSE ---
Pt approached desk and asked the following quote to be added to her chart. Pt stated I am SICK and TIRED of advocating for myself. Do it yourselves or i'll do it better.
[2024-05-28] MEDS: Lurasidone HCl 40 MG TABLET 120 MG PO (18:11)
[2024-05-28] MEDS: Magnesium Hydrox/Alum Hydrox 30 ML ORAL.SUSP PO (19:04)
[2024-05-28 19:41] VITALS: BP 116/59; PULSE 105; RESP 16; TEMP 36.4; O2SAT 96
[2024-05-28] MEDS: clonazePAM 1 MG TABLET PO (22:27)
[2024-05-29 08:00] VITALS: BP 115/67; PULSE 102; RESP 16; TEMP 36.4; O2SAT 98
[2024-05-29] MEDS: Nicotine 21 MG PATCH.TD24 TRANSDERMA (08:41)
[2024-05-29] MEDS: Nicotine Polacrilex Lozenge 4 MG LOZENGE BUCCAL ×2 (08:41→17:40)
--- NOTE | 2024-05-29 08:58 | HO.PSYCHPN ---
Subjective Subjective Date of Service: 05/29/24 Reason For Visit: Crisis Subjective Notes: 3 Day Interim History: Active on unit. Social with peers. Medication compliant. Attending groups. Patient presents improved than days prior; insightful into mental illness. She signed 3-day notice and is requesting to be discharged. 3 day up on 06/01/24. Patient stated, I feel normal. I hate being normal. I like having a tiny bit of jean at all times . Patient did not express any delusional thoughts during conversation. She did have a panic attack when told she would not be getting discharged today; was given Zyprexa 5 mg with positive effect. [place] level 0.28 on 05/29/24. T/W met with patient and mother, Sara, discussed discharge plan for this week if pt continues to improve. Mother is requesting patient to attend program after discharge, however pt is declining and would like to return home. Patient continues agreeable to visiting nurse. Medication Compliance: Yes Side effects from medications: No Attending Groups: Yes Mental Status Exam Mental Status Exam Narrative: Pt is alert and oriented; behavior is cooperative, friendly,calm; dressed in casual attire; mood is described as good ; eye contact appropriate; Speech is normal rate, volume, not pressured; organized, future oriented, focused on discharge; denies SI/HI/VH/AH Diagnostics Vital Signs (24Hr): Vital Signs - 24 hr 05/28/24 19:41 05/29/24 08:00 Temperature 97.5 F 97.6 F Pulse Rate 105 H 102 H Respiratory Rate 16 16 Blood Pressure 116/59 L 115/67 Pulse Oximetry 96 98 Oxygen Delivery Method Room Air Room Air BMI result Body Mass Index 28.5 Labs 05/29/24 12:35 05/29/24 12:35 Medications Medications Current Medications Acetaminophen (Acetaminophen 325 Mg Tablet) 650 mg PO Q6H PRN PRN Reason: Headache/Pain, Scale 1-10 Last Admin: 05/26/24 18:25 Dose: 650 mg Al Hydroxide/Mg Hydroxide (Magnesium Hydrox/Alum Hydrox 30 Ml Oral.Susp) 30 ml PO Q6H PRN PRN Reason: Heartburn/Nausea Last Admin: 05/28/24 19:04 Dose: 30 ml Albuterol Sulfate (Albuterol Sulfate 90 Mcg 8 Gm Inhaler) 1 puff INHALE RQ6H PRN PRN Reason: Shortness of Breath Calcium Carbonate (Calcium Carbonate 750 Mg Tab.Chew) 750 mg PO Q6H PRN PRN Reason: Heartburn Last Admin: 05/18/24 21:34 Dose: 750 mg Clonazepam (Clonazepam 1 Mg Tablet) 1 mg PO BEDTIME LEE Last Admin: 05/28/24 22:27 Dose: 1 mg Fluticasone Propionate (Fluticasone Propionate Nasal 16 Gm [place]) 1 spray NOSTRIL-B DAILY PRN PRN Reason: Allergic Symptoms Last Admin: 05/19/24 14:13 Dose: 1 spray Hydroxyzine HCl (Hydroxyzine Hcl 25 Mg Tablet) 25 mg PO Q6H PRN PRN Reason: mild anxiety Last Admin: 05/27/24 10:48 Dose: 25 mg [place] Carbonate ([place] Carbonate Er 450 Mg Tablet.Er) 900 mg PO BEDTIME LEE Lurasidone HCl (Lurasidone Hcl 40 Mg Tablet) 120 mg PO DAILY@1700 LEE Last Admin: 05/28/24 18:11 Dose: 80 mg Magnesium Hydroxide (Milk Of Magnesia 30 Ml Oral.Susp) 30 ml PO DAILY PRN PRN Reason: Constipation Nicotine (Nicotine 21 Mg Patch.Td24) 21 mg TRANSDERMA DAILY PRN PRN Reason: Nicotine Cravings Last Admin: 05/29/24 08:41 Dose: 21 mg Nicotine Polacrilex (Nicotine Polacrilex Lozenge 4 Mg Lozenge) 4 mg BUCCAL Q2H PRN PRN Reason: Nicotine Cravings Last Admin: 05/29/24 08:41 Dose: 4 mg Olanzapine (Olanzapine 5 Mg Tablet) 5 mg PO Q4H PRN PRN Reason: Psychosis Ondansetron HCl (Ondansetron Odt 8 Mg Tab.Rapdis) 8 mg TRANSLINGU Q12H PRN PRN Reason: Nausea and Vomiting Trazodone HCl (Trazodone Hcl 50 Mg Tablet) 50 mg PO BEDTIME MRX1 PRN PRN Reason: Insomnia Allergies Allergies Allergy/AdvReac Type Severity Reaction Status Date / Time lithium AdvReac Intermediate tremors Uncoded 05/14/24 16:39 olanzapine AdvReac Intermediate ortho hotn Uncoded 05/14/24 16:39 Assessment & Plan Assessment & Plan (1) Bipolar I disorder with jean: Status: Acute Code(s): F31.10 - Bipolar disorder, current episode manic without psychotic features, unspecified Assessment and Plan: with erotomanic, church delusions (2) PTSD (post-traumatic stress disorder): Status: Acute Code(s): F43.10 - Post-traumatic stress disorder, unspecified Plan Patient patient is a 23-year-old female with history of bipolar disorder and PTSD who presented to ER via section 12 due to manic behavior secondary to increased marijuana use. Plan: CV 15 minutes safety check Continue home medications Obtain collateral Encourage groups Discharge planning 05/16: delusional. grandiose. +AH. +VH. denies SI/HI. Active on unit. medication compliant. Per nursing, slept 3 hours last night. Pt stated, I feel good. Bradly and Dionicio are leaving me gifts. They are the same person. He leaves me food mostly. I asked him to play music and he flushed the toilet. We talk telepathically . When asked why she was walking around the unit without clothes on last evening; pt stated, I was trying to hard to not be naked. I was following Lucifier from room to room. He knows my purpose is healing . Pt denies side effects from medications. Start: Depakote 250mg PO BID 05/17: Pt continues similar to yesterday. delusional. grandiose. +AH. +VH. denies SI/HI. Per nursing, slept 6 hours last night. placed on 1:1 safety checks yesterday d/t disorganized behavior. Pt stated, It's so weird that my room is next door to [facility]. The [place] wedding ceremony is confusing . medication compliant. Spoke to patient's mother yesterday afternoon via phone, reviewed past medication trials; mother was notified of patient starting on Depakote. 05/18: Pt continues delusional, disorganized. Depakote level 37.6 on 05/18/24. Pt reports she was crawling on the floor and licking things because it's part of the [place] wedding . Continues to talk about Dionicio being on the unit and talking with her. Depakote increased to 500mg PO BID Klonopin decreased to 1mg PO BID 05/19 keep same treatment. The patient agreed that I can contact her mother at [phone]. 05/20 I lowered her Depakote yesterday after speaking with her parents. Still grossly disorganized. 05/21: Napping on sensory room floor. states she does not want to go to her room d/t it smelling . Pt continues delusional and disorganized. Depakote level 37.6 on 05/18/24. No reports of patient vomiting the past 2 days. pt was given additional 250mg dose today, however proceeded to vomit 3 hours later. Depakote DC'd. Start [place] 300mg PO BID; monitor for side effects. Klonopin decreased to 1mg PO bedtime and 0.5mg PO daily She continues to talk about Dionicio being on the unit and giving her food. Pt stated, Dionicio is hanging around. I'm not crazy. Everyone knows he's here too . denies SI/HI/VH/AH. per nursing, pt slept 3-4 hours last night. T/W spoke to pt's mother, Sara, regarding treatment plan. Sara reports she is considering having pt go to substance abuse program after discharge for marijuana use. 05/22: Napping throughout the day. Pt continues delusional however, more organized during conversation. Pt stated, I keep doing Yoga because in my body is strong than Dionicio's body is strong . She denies any side effects from starting [place]; per nursing, pt did not vomit last night or this morning. She reportedly slept 6 hours last night. Continue current tx plan. 05/23: jean improving on lithium. increase lithium to 450 BID. c/o feeling like a zombie. agreeable to [facility] risperidone and reschedule all latuda to . otherwise continue current mgmt. case d/w pt's mother on the phone. 05/24: Active on unit, social with peers. Pt continues delusional; pt stated, I think I'm getting today to the kadi that killed the SOLDERING INSPECTOR. I just want to date him first . She denies any medication side effects, other than feeling tired. per nursing, slept 8 hours. denies SI/HI/VH/AH. DC klonopin 0.5mg PO daily 05/25: observed dancing around unit. Pt continues delusional; pt stated, I'm supposed to go to the court house today to get . denies any medication side effects. Organized at times during conversation. T/W spoke with patient's mother, Sara, via phone; updated on treatment plan. 05/26 refuses lithium, continues to present with erotomatic, some church delusions,very impaired insight and judgment. change latuda to dinner time as it requires 350 calories to be absorbed and will increase it to 120mg, which pt agrees with. 05/27 continues to intermittently decline lithium 05/28: Cooperative. social with peers. organized during conversation regarding work, treatment and school. However, continues to present with delusions regarding getting to Dionicio ; pt also stated she believes one of the counselors on the unit is Dionicio's father d/t being Romansh . pt stated, I think he(the counselor) was told to spend time with me because I'm gong to his son soon . Pt requesting to have lithium switched to bedtime; lithium changed to 900mg PO bedtime. Patient states she is not interested in going to a program after here even though my mom wants me to. I just want to go home when I'm feeling better . Pt reports she is agreeable with having a visiting nurse to help with medication management. 05/29: Active on unit. Social with peers. Medication compliant. Attending groups. Patient presents improved than days prior; insightful into mental illness. She signed 3-day notice and is requesting to be discharged. 3 day up on 06/01/24. Patient stated, I feel normal. I hate being normal. I like having a tiny bit of jean at all times . Patient did not express any delusional thoughts during conversation. She did have a panic attack when told she would not be getting discharged today; was given Zyprexa 5 mg with positive effect. [place] level 0.28 on 05/29/24. T/W met with patient and mother, Sara, discussed discharge plan for this week if pt continues to improve. Mother is requesting patient to attend program after discharge, however pt is declining and would like to return home. Patient continues agreeable to visiting nurse. Patient educated on: diagnosis and medication risk/benefits Guardian/Caregiver educated on: diagnosis and medication risk/benefits Reason for continued inpatient stay Substantial Risk for: med/psych decompensation Time Spent With Patient Time: Total time managing care of this patient today _30___ minutes.
[2024-05-29] MEDS: OLANZapine 5 MG TABLET PO ×3 (11:31→16:19)
[2024-05-29] MEDS: Ondansetron ODT 8 MG TAB.RAPDIS TRANSLINGU (11:41)
[2024-05-29 12:56] LABS: MANUAL DIFF FLAG NO
[2024-05-29 12:57] LABS: Basophils Absolute Auto 0.1 X10*3/uL (0.0-0.2); Basophils Percent Auto 0.6 % (0-2); Eosinophils Absolute Auto 0.1 X10*3/uL (0.0-0.4); Eosinophils Percent Auto 1.1 % (0-4); Hematocrit 41.7 % (37.0-47.0); Hemoglobin 14.3 g/dl (12.0-16.0); Imm Gran Abs Auto 0.06 X10*3/uL (0.00-0.03); Imm Gran Pct Auto 0.7 % (0.0-0.4); Lymphocytes Absolute Auto 2.2 X10*3/uL (1.2-4.9); Lymphocytes Percent Auto 24.7 % (20-40); Mean Corpuscular HGB Conc 34.3 g/dl (31.0-35.0); Mean Corpuscular Hemoglobin 29.9 pg (27.0-33.0); Mean Corpuscular Volume 87.1 fL (80.0-98.0); Mean Platelet Volume 9.6 fL (9.4-12.3); Monocytes Absolute Auto 0.6 X10*3/uL (0.1-1.2); Monocytes Percent Auto 6.5 % (2-11); Neutrophils Absolute Auto 5.9 x10*3/uL (2.0-8.3); Neutrophils Percent Auto 66.4 % (45-73); Platelet Count 332 X10*3/uL (160-400); Red Blood Count 4.79 X10*6/uL (4.20-5.50); Red Cell Distribution Width 12.5 % (11.0-16.0); White Blood Count 8.8 X10*3/uL (4.8-10.8)
[2024-05-29 13:04] LABS: Lithium 0.28 mmol/L (0.60-1.20)
[2024-05-29 13:06] LABS: Estimated Average Glucose 100 mg/dL; Hemoglobin A1C 118.4902 umol/L; Hemoglobin A1c % 5.1 % (<6.0); Total Hemoglobin (HGBA1C) 3732.5062 umol/L
[2024-05-29 13:22] LABS: Anion Gap 10 (12-20); Blood Urea Nitrogen 9 mg/dL (9-16); Calcium 9.3 mg/dL (8.4-10.2); Carbon Dioxide 27 mmol/L (22-29); Chloride 108 mmol/L (96-108); Creatinine Clr Calc Pharmacy 86.4; Estimated Glomerular Filt Rate > 60; Glucose Random 126 mg/dL (60-115); Sodium 141 mmol/L (135-145)
[2024-05-29 13:56] LABS: TSH reflex Free T4 1.25 uIU/mL (0.32-4.0)
[2024-05-29] MEDS: Lurasidone HCl 40 MG TABLET 120 MG PO (17:16)
[2024-05-29 20:00] VITALS: BP 116/73; PULSE 100; RESP 16; TEMP 36.7; O2SAT 97
[2024-05-29] MEDS: clonazePAM 1 MG TABLET PO (23:07)
[2024-05-29] MEDS: Lithium Carbonate ER 450 MG TABLET.ER 900 MG PO (23:07)
[2024-05-30] MEDS: Nicotine Polacrilex Lozenge 4 MG LOZENGE BUCCAL ×5 (07:11→18:51)
[2024-05-30] MEDS: Nicotine 21 MG PATCH.TD24 TRANSDERMA (07:14)
[2024-05-30 07:20] VITALS: BP 110/69; PULSE 101; RESP 16; TEMP 36.3; O2SAT 99
--- NOTE | 2024-05-30 09:01 | P.PNPSI_ITS ---
Subjective Subjective Date of Service: 05/30/24 Reason For Visit: Crisis Subjective Notes: 3 Day Interim History: Active on unit. Social with peers. Medication compliant. Attending groups. 3 day up on 06/01/24. Patient reports feeling good today; pt stated, I'm going to keep taking my medications when I leave here. I don't want to use any substances. My brain needs to reset . Patient reports she is looking forward to discharge so she can return to work and school. denies SI/HI/VH/AH. Pt reports she does not want to go to a program after discharge despite her mother wanting her to do so; pt stated, I'll go to a program during the summer. I don't want to go to another place and feel stuck . T/W spoke with patient's mother, Sara, discussed discharge plan for this week if pt continues to improve. Mother is aware patient does not want to attend program after discharge. Medication Compliance: Yes Side effects from medications: No Attending Groups: Yes Mental Status Exam Mental Status Exam Narrative: Pt is alert and oriented; behavior is cooperative, friendly and calm; dressed in casual attire; mood is described as good ; eye contact appropriate; Speech is normal rate, volume and not pressured; thought process is organized and goal directed; Thought content is on tx; denies SI/HI/VH/AH. Diagnostics Vital Signs (24Hr): Vital Signs - 24 hr 05/29/24 20:00 05/30/24 07:20 Temperature 98.0 F 97.3 F Pulse Rate 100 101 H Respiratory Rate 16 16 Blood Pressure 116/73 110/69 Pulse Oximetry 97 99 Oxygen Delivery Method Room Air Room Air BMI result Body Mass Index 28.5 Labs 05/29/24 12:35 05/29/24 12:35 Labs: Laboratory Results - last 48 hr 05/29/24 12:35 WBC 8.8 RBC 4.79 Hgb 14.3 Hct 41.7 MCV 87.1 MCH 29.9 MCHC 34.3 RDW 12.5 Plt Count 332 MPV 9.6 Immature Gran % (Auto) 0.7 H Neut % (Auto) 66.4 Lymph % (Auto) 24.7 [place] % (Auto) 6.5 Eos % (Auto) 1.1 Baso % (Auto) 0.6 Lymph # (Auto) 2.2 [place] # (Auto) 0.6 Eos # (Auto) 0.1 Baso # (Auto) 0.1 Abs Immat Gran (auto) 0.06 H Absolute Neuts (auto) 5.9 Absolute Nucleated RBC 0.000 Nucleated RBC % (auto) 0.0 Sodium 141 Potassium 4.0 Chloride 108 Carbon Dioxide 27 Anion Gap 10 L BUN 9 Creatinine 0.94 Estim Creat Clear Calc 86.4 Estimated GFR > 60 Random Glucose 126 H Estimat Average Glucose 100 Hemoglobin A1c % 5.1 Calcium 9.3 D TSH 1.25 [place] 0.28 L Medications Medications Current Medications Acetaminophen (Acetaminophen 325 Mg Tablet) 650 mg PO Q6H PRN PRN Reason: Headache/Pain, Scale 1-10 Last Admin: 05/26/24 18:25 Dose: 650 mg Al Hydroxide/Mg Hydroxide (Magnesium Hydrox/Alum Hydrox 30 Ml Oral.Susp) 30 ml PO Q6H PRN PRN Reason: Heartburn/Nausea Last Admin: 05/28/24 19:04 Dose: 30 ml Albuterol Sulfate (Albuterol Sulfate 90 Mcg 8 Gm Inhaler) 1 puff INHALE RQ6H PRN PRN Reason: Shortness of Breath Calcium Carbonate (Calcium Carbonate 750 Mg Tab.Chew) 750 mg PO Q6H PRN PRN Reason: Heartburn Last Admin: 05/18/24 21:34 Dose: 750 mg Clonazepam (Clonazepam 1 Mg Tablet) 1 mg PO BEDTIME LEE Last Admin: 05/29/24 23:07 Dose: 1 mg Fluticasone Propionate (Fluticasone Propionate Nasal 16 Gm [place]) 1 spray NOSTRIL-B DAILY PRN PRN Reason: Allergic Symptoms Last Admin: 05/19/24 14:13 Dose: 1 spray Hydroxyzine HCl (Hydroxyzine Hcl 25 Mg Tablet) 25 mg PO Q6H PRN PRN Reason: mild anxiety Last Admin: 05/27/24 10:48 Dose: 25 mg [place] Carbonate ([place] Carbonate Er 450 Mg Tablet.Er) 900 mg PO BEDTIME LEE Last Admin: 05/29/24 23:07 Dose: 900 mg Lurasidone HCl (Lurasidone Hcl 40 Mg Tablet) 120 mg PO DAILY@1700 [facility] Last Admin: 05/29/24 17:16 Dose: 80 mg Magnesium Hydroxide (Milk Of Magnesia 30 Ml Oral.Susp) 30 ml PO DAILY PRN PRN Reason: Constipation Nicotine (Nicotine 21 Mg Patch.Td24) 21 mg TRANSDERMA DAILY PRN PRN Reason: Nicotine Cravings Last Admin: 05/30/24 07:14 Dose: 21 mg Nicotine Polacrilex (Nicotine Polacrilex Lozenge 4 Mg Lozenge) 4 mg BUCCAL Q2H PRN PRN Reason: Nicotine Cravings Last Admin: 05/30/24 07:11 Dose: 4 mg Olanzapine (Olanzapine 5 Mg Tablet) 5 mg PO Q4H PRN PRN Reason: Psychosis Last Admin: 05/29/24 16:19 Dose: 5 mg Ondansetron HCl (Ondansetron Odt 8 Mg Tab.Rapdis) 8 mg TRANSLINGU Q12H PRN PRN Reason: Nausea and Vomiting Last Admin: 05/29/24 11:41 Dose: 8 mg Trazodone HCl (Trazodone Hcl 50 Mg Tablet) 50 mg PO BEDTIME MRX1 PRN PRN Reason: Insomnia Allergies Allergies Allergy/AdvReac Type Severity Reaction Status Date / Time lithium AdvReac Intermediate tremors Uncoded 05/14/24 16:39 olanzapine AdvReac Intermediate ortho hotn Uncoded 05/14/24 16:39 Assessment & Plan Assessment & Plan (1) Bipolar I disorder with jean: Status: Acute Code(s): F31.10 - Bipolar disorder, current episode manic without psychotic features, unspecified Assessment and Plan: with erotomanic, oriental orthodox delusions (2) PTSD (post-traumatic stress disorder): Status: Acute Code(s): F43.10 - Post-traumatic stress disorder, unspecified Plan Patient patient is a 23-year-old female with history of bipolar disorder and PTSD who presented to ER via section 12 due to manic behavior secondary to increased marijuana use. Plan: CV 15 minutes safety check Continue home medications Obtain collateral Encourage groups Discharge planning 05/16: delusional. grandiose. +AH. +VH. denies SI/HI. Active on unit. medication compliant. Per nursing, slept 3 hours last night. Pt stated, I feel good. Bradly and Dionicio are leaving me gifts. They are the same person. He leaves me food mostly. I asked him to play music and he flushed the toilet. We talk telepathically . When asked why she was walking around the unit without clothes on last evening; pt stated, I was trying to hard to not be naked. I was following Lucifier from room to room. He knows my purpose is healing . Pt denies side effects from medications. Start: Depakote 250mg PO BID 05/17: Pt continues similar to yesterday. delusional. grandiose. +AH. +VH. denies SI/HI. Per nursing, slept 6 hours last night. placed on 1:1 safety checks yesterday d/t disorganized behavior. Pt stated, It's so weird that my room is next door to [facility]. The [place] wedding ceremony is confusing . medication compliant. Spoke to patient's mother yesterday afternoon via phone, reviewed past medication trials; mother was notified of patient starting on Depakote. 05/18: Pt continues delusional, disorganized. Depakote level 37.6 on 05/18/24. Pt reports she was crawling on the floor and licking things because it's part of the [place] wedding . Continues to talk about Dionicio being on the unit and talking with her. Depakote increased to 500mg PO BID Klonopin decreased to 1mg PO BID 05/19 keep same treatment. The patient agreed that I can contact her mother at [phone]. 05/20 I lowered her Depakote yesterday after speaking with her parents. Still grossly disorganized. 05/21: Napping on sensory room floor. states she does not want to go to her room d/t it smelling . Pt continues delusional and disorganized. Depakote level 37.6 on 05/18/24. No reports of patient vomiting the past 2 days. pt was given additional 250mg dose today, however proceeded to vomit 3 hours later. Depakote DC'd. Start [place] 300mg PO BID; monitor for side effects. Klonopin decreased to 1mg PO bedtime and 0.5mg PO daily She continues to talk about Dionicio being on the unit and giving her food. Pt stated, Dionicio is hanging around. I'm not crazy. Everyone knows he's here too . denies SI/HI/VH/AH. per nursing, pt slept 3-4 hours last night. T/W spoke to pt's mother, Sara, regarding treatment plan. Sara reports she is considering having pt go to substance abuse program after discharge for marijuana use. 05/22: Napping throughout the day. Pt continues delusional however, more organized during conversation. Pt stated, I keep doing Yoga because in my body is strong than Dionicio's body is strong . She denies any side effects from starting [place]; per nursing, pt did not vomit last night or this morning. She reportedly slept 6 hours last night. Continue current tx plan. 05/23: jean improving on lithium. increase lithium to 450 BID. c/o feeling like a zombie. agreeable to [facility] risperidone and reschedule all latuda to HS. otherwise continue current mgmt. case d/w pt's mother on the phone. 05/24: Active on unit, social with peers. Pt continues delusional; pt stated, I think I'm getting today to the kadi that killed the NUCLE[employer]ELS RESEARCH ENGINEER. I just want to date him first . She denies any medication side effects, other than feeling tired. per nursing, slept 8 hours. denies SI/HI/VH/AH. DC klonopin 0.5mg PO daily 05/25: observed dancing around unit. Pt continues delusional; pt stated, I'm supposed to go to the court house today to get . denies any medication side effects. Organized at times during conversation. T/W spoke with patient's mother, Sara, via phone; updated on treatment plan. 05/26 refuses lithium, continues to present with erotomatic, some oriental orthodox delusions,very impaired insight and judgment. change latuda to dinner time as it requires 350 calories to be absorbed and will increase it to 120mg, which pt agrees with. 05/27 continues to intermittently decline lithium 05/28: Cooperative. social with peers. organized during conversation regarding work, treatment and school. However, continues to present with delusions regarding getting to Dionicio ; pt also stated she believes one of the counselors on the unit is Dionicio's father d/t being [place] . pt stated, I think he(the counselor) was told to spend time with me because I'm gong to his son soon . Pt requesting to have lithium switched to bedtime; lithium changed to 900mg PO bedtime. Patient states she is not interested in going to a program after here even though my mom wants me to. I just want to go home when I'm feeling better . Pt reports she is agreeable with having a visiting nurse to help with medication management. 05/29: Active on unit. Social with peers. Medication compliant. Attending groups. Patient presents improved than days prior; insightful into mental illness. She signed 3-day notice and is requesting to be discharged. 3 day up on 06/01/24. Patient stated, I feel normal. I hate being normal. I like having a tiny bit of jean at all times . Patient did not express any delusional thoughts during conversation. She did have a panic attack when told she would not be getting discharged today; was given Zyprexa 5 mg with positive effect. [place] level 0.28 on 05/29/24. T/W met with patient and mother, Sara, discussed discharge plan for this week if pt continues to improve. Mother is requesting patient to attend program after discharge, however pt is declining and would like to return home. Patient continues agreeable to visiting nurse. 05/30: Active on unit. Social with peers. Medication compliant. Attending groups. 3 day up on 06/01/24. Patient reports feeling good today; pt stated, I'm going to keep taking my medications when I leave here. I don't want to use any substances. My brain needs to reset . Patient reports she is looking forward to discharge so she can return to work and school. denies SI/HI/VH/AH. Pt reports she does not want to go to a program after discharge despite her mother wanting her to do so; pt stated, I'll go to a program during the summer. I don't want to go to another place and feel stuck . T/W spoke with patient's mother, Sara, discussed discharge plan for this week if pt continues to improve. Mother is aware patient does not want to attend program after discharge. Patient educated on: diagnosis and medication risk/benefits Reason for continued inpatient stay Substantial Risk for: med/psych decompensation Time Spent With Patient Time: Total time managing care of this patient today _20___ minutes.
[2024-05-30] MEDS: Lurasidone HCl 40 MG TABLET 120 MG PO (17:47)
[2024-05-30 19:30] VITALS: BP 138/64; PULSE 103; RESP 16; TEMP 36.8; O2SAT 97
[2024-05-30] MEDS: Lithium Carbonate ER 450 MG TABLET.ER 900 MG PO (20:00)
[2024-05-30] MEDS: clonazePAM 1 MG TABLET PO (20:00)
[2024-05-31] MEDS: Nicotine Polacrilex Lozenge 4 MG LOZENGE BUCCAL ×4 (05:57→18:17)
[2024-05-31 07:10] VITALS: BP 125/73; PULSE 99; RESP 14; TEMP 36.4; O2SAT 99
[2024-05-31] MEDS: Nicotine 21 MG PATCH.TD24 TRANSDERMA (09:28)
--- NOTE | 2024-05-31 10:10 | HO.PSYCHPN ---
Subjective Subjective Date of Service: 05/31/24 Reason For Visit: Crisis Subjective Notes: 3 Day Interim History: Active on unit. Social with peers. Medication compliant. Attending groups. 3 day up on 06/01/24. Patient continues to report feeling good ; pt stated, my brother called me yesterday and convinced me to go to a program so I might go . Labs to be drawn tomorrow morning. denies SI/HI/VH/AH. Latuda decreased to 80mg PO daily per patient request. Patient reports she plans on following up with her outpatient providers when discharged. Medication Compliance: Yes Side effects from medications: No Attending Groups: Yes Mental Status Exam Mental Status Exam Narrative: Pt is alert and oriented; behavior is cooperative, friendly and calm; dressed in casual attire; mood is described as good ; eye contact appropriate; Speech is normal rate, volume and not pressured; thought process is organized and goal directed; Thought content is on discharge; denies SI/HI/VH/AH. Diagnostics Vital Signs (24Hr): Vital Signs - 24 hr 05/30/24 19:30 05/31/24 07:10 05/31/24 07:10 Temperature 98.2 F 97.5 F 97.5 F Pulse Rate 103 H 99 99 Respiratory Rate 16 14 14 Blood Pressure 138/64 125/73 125/73 Pulse Oximetry 97 99 99 Oxygen Delivery Method Room Air Room Air Room Air BMI result Body Mass Index 28.5 Labs 05/29/24 12:35 05/29/24 12:35 Labs: Laboratory Results - last 48 hr 05/29/24 12:35 WBC 8.8 RBC 4.79 Hgb 14.3 Hct 41.7 MCV 87.1 MCH 29.9 MCHC 34.3 RDW 12.5 Plt Count 332 MPV 9.6 Immature Gran % (Auto) 0.7 H Neut % (Auto) 66.4 Lymph % (Auto) 24.7 Baker % (Auto) 6.5 Eos % (Auto) 1.1 Baso % (Auto) 0.6 Lymph # (Auto) 2.2 Baker # (Auto) 0.6 Eos # (Auto) 0.1 Baso # (Auto) 0.1 Abs Immat Gran (auto) 0.06 H Absolute Neuts (auto) 5.9 Absolute Nucleated RBC 0.000 Nucleated RBC % (auto) 0.0 Sodium 141 Potassium 4.0 Chloride 108 Carbon Dioxide 27 Anion Gap 10 L BUN 9 Creatinine 0.94 Estim Creat Clear Calc 86.4 Estimated GFR > 60 Random Glucose 126 H Estimat Average Glucose 100 Hemoglobin A1c % 5.1 Calcium 9.3 D TSH 1.25 Leoti 0.28 L Medications Medications Current Medications Acetaminophen (Acetaminophen 325 Mg Tablet) 650 mg PO Q6H PRN PRN Reason: Headache/Pain, Scale 1-10 Last Admin: 05/26/24 18:25 Dose: 650 mg Al Hydroxide/Mg Hydroxide (Magnesium Hydrox/Alum Hydrox 30 Ml Oral.Susp) 30 ml PO Q6H PRN PRN Reason: Heartburn/Nausea Last Admin: 05/28/24 19:04 Dose: 30 ml Albuterol Sulfate (Albuterol Sulfate 90 Mcg 8 Gm Inhaler) 1 puff INHALE RQ6H PRN PRN Reason: Shortness of Breath Calcium Carbonate (Calcium Carbonate 750 Mg Tab.Chew) 750 mg PO Q6H PRN PRN Reason: Heartburn Last Admin: 05/18/24 21:34 Dose: 750 mg Clonazepam (Clonazepam 1 Mg Tablet) 1 mg PO BEDTIME REPLACED BY [facility] Last Admin: 05/30/24 20:00 Dose: 1 mg Fluticasone Propionate (Fluticasone Propionate Nasal 16 Gm [place]) 1 spray NOSTRIL-B DAILY PRN PRN Reason: Allergic Symptoms Last Admin: 05/19/24 14:13 Dose: 1 spray Hydroxyzine HCl (Hydroxyzine Hcl 25 Mg Tablet) 25 mg PO Q6H PRN PRN Reason: mild anxiety Last Admin: 05/27/24 10:48 Dose: 25 mg Leoti Carbonate (Leoti Carbonate Er 450 Mg Tablet.Er) 900 mg PO BEDTIME REPLACED BY [facility] Last Admin: 05/30/24 20:00 Dose: 900 mg Lurasidone HCl (Lurasidone Hcl 40 Mg Tablet) 120 mg PO DAILY@1700 REPLACED BY [facility] Last Admin: 05/30/24 17:47 Dose: 80 mg Magnesium Hydroxide (Milk Of Magnesia 30 Ml Oral.Susp) 30 ml PO DAILY PRN PRN Reason: Constipation Nicotine (Nicotine 21 Mg Patch.Td24) 21 mg TRANSDERMA DAILY PRN PRN Reason: Nicotine Cravings Last Admin: 05/31/24 09:28 Dose: 21 mg Nicotine Polacrilex (Nicotine Polacrilex Lozenge 4 Mg Lozenge) 4 mg BUCCAL Q2H PRN PRN Reason: Nicotine Cravings Last Admin: 05/31/24 09:27 Dose: 4 mg Olanzapine (Olanzapine 5 Mg Tablet) 5 mg PO Q4H PRN PRN Reason: Psychosis Last Admin: 05/29/24 16:19 Dose: 5 mg Ondansetron HCl (Ondansetron Odt 8 Mg Tab.Rapdis) 8 mg TRANSLINGU Q12H PRN PRN Reason: Nausea and Vomiting Last Admin: 05/29/24 11:41 Dose: 8 mg Trazodone HCl (Trazodone Hcl 50 Mg Tablet) 50 mg PO BEDTIME MRX1 PRN PRN Reason: Insomnia Allergies Allergies Allergy/AdvReac Type Severity Reaction Status Date / Time lithium AdvReac Intermediate tremors Uncoded 05/14/24 16:39 olanzapine AdvReac Intermediate ortho hotn Uncoded 05/14/24 16:39 Assessment & Plan Assessment & Plan (1) Bipolar I disorder with jean: Status: Acute Code(s): F31.10 - Bipolar disorder, current episode manic without psychotic features, unspecified Assessment and Plan: with erotomanic, quaker delusions (2) PTSD (post-traumatic stress disorder): Status: Acute Code(s): F43.10 - Post-traumatic stress disorder, unspecified Plan Patient patient is a 23-year-old female with history of bipolar disorder and PTSD who presented to ER via section 12 due to manic behavior secondary to increased marijuana use. Plan: CV 15 minutes safety check Continue home medications Obtain collateral Encourage groups Discharge planning 05/16: delusional. grandiose. +AH. +VH. denies SI/HI. Active on unit. medication compliant. Per nursing, slept 3 hours last night. Pt stated, I feel good. Bradly and Dionicio are leaving me gifts. They are the same person. He leaves me food mostly. I asked him to play music and he flushed the toilet. We talk telepathically . When asked why she was walking around the unit without clothes on last evening; pt stated, I was trying to hard to not be naked. I was following Lucifier from room to room. He knows my purpose is healing . Pt denies side effects from medications. Start: Depakote 250mg PO BID 05/17: Pt continues similar to yesterday. delusional. grandiose. +AH. +VH. denies SI/HI. Per nursing, slept 6 hours last night. placed on 1:1 safety checks yesterday d/t disorganized behavior. Pt stated, It's so weird that my room is next door to Dionicio. The [place] wedding ceremony is confusing . medication compliant. Spoke to patient's mother yesterday afternoon via phone, reviewed past medication trials; mother was notified of patient starting on Depakote. 05/18: Pt continues delusional, disorganized. Depakote level 37.6 on 05/18/24. Pt reports she was crawling on the floor and licking things because it's part of the [place] wedding . Continues to talk about Dionicio being on the unit and talking with her. Depakote increased to 500mg PO BID Klonopin decreased to 1mg PO BID 05/19 keep same treatment. The patient agreed that I can contact her mother at [phone]. 05/20 I lowered her Depakote yesterday after speaking with her parents. Still grossly disorganized. 05/21: Napping on sensory room floor. states she does not want to go to her room d/t it smelling . Pt continues delusional and disorganized. Depakote level 37.6 on 05/18/24. No reports of patient vomiting the past 2 days. pt was given additional 250mg dose today, however proceeded to vomit 3 hours later. Depakote DC'd. Start Leoti 300mg PO BID; monitor for side effects. Klonopin decreased to 1mg PO bedtime and 0.5mg PO daily She continues to talk about Dionicio being on the unit and giving her food. Pt stated, Dionicio is hanging around. I'm not crazy. Everyone knows he's here too . denies SI/HI/VH/AH. per nursing, pt slept 3-4 hours last night. T/W spoke to pt's mother, Sara, regarding treatment plan. Sara reports she is considering having pt go to substance abuse program after discharge for marijuana use. 05/22: Napping throughout the day. Pt continues delusional however, more organized during conversation. Pt stated, I keep doing Yoga because in my body is strong than Dionicio's body is strong . She denies any side effects from starting Leoti; per nursing, pt did not vomit last night or this morning. She reportedly slept 6 hours last night. Continue current tx plan. 05/23: jean improving on lithium. increase lithium to 450 BID. c/o feeling like a zombie. agreeable to DC HS risperidone and reschedule all latuda to HS. otherwise continue current mgmt. case d/w pt's mother on the phone. 05/24: Active on unit, social with peers. Pt continues delusional; pt stated, I think I'm getting today to the [place] that killed the [employer]. I just want to date him first . She denies any medication side effects, other than feeling tired. per nursing, slept 8 hours. denies SI/HI/VH/AH. DC klonopin 0.5mg PO daily 05/25: observed dancing around unit. Pt continues delusional; pt stated, I'm supposed to go [place] the court house today to get . denies any medication side effects. Organized at times during conversation. T/W spoke with patient's mother, Sara, via phone; updated on treatment plan. 05/26 refuses lithium, continues to present with erotomatic, some quaker delusions,very impaired insight and judgment. change latuda to dinner time as it requires 350 calories to be absorbed and will increase it to 120mg, which pt agrees with. 05/27 continues to intermittently decline lithium 05/28: Cooperative. social with peers. organized during conversation regarding work, treatment and school. However, continues to present with delusions regarding getting to Dionicio ; pt also stated she believes one of the counselors on the unit is Dionicio's father d/t being [place] . pt stated, I think he(the counselor) was told to spend time with me because I'm gong to his son soon . Pt requesting to have lithium switched to bedtime; lithium changed to 900mg PO bedtime. Patient states she is not interested in going to a program after here even though my mom wants me to. I just want to go home when I'm feeling better . Pt reports she is agreeable with having a visiting nurse to help with medication management. 05/29: Active on unit. Social with peers. Medication compliant. Attending groups. Patient presents improved than days prior; insightful into mental illness. She signed 3-day notice and is requesting to be discharged. 3 day up on 06/01/24. Patient stated, I feel normal. I hate being normal. I like having a tiny bit of jean at all times . Patient did not express any delusional thoughts during conversation. She did have a panic attack when told she would not be getting discharged today; was given Zyprexa 5 mg with positive effect. Leoti level 0.28 on 05/29/24. T/W met with patient and mother, Sara, discussed discharge plan for this week if pt continues to improve. Mother is requesting patient to attend program after discharge, however pt is declining and would like to return home. Patient continues agreeable to visiting nurse. 05/30: Active on unit. Social with peers. Medication compliant. Attending groups. 3 day up on 06/01/24. Patient reports feeling good today; pt stated, I'm going to keep taking my medications when I leave here. I don't want to use any substances. My brain needs to reset . Patient reports she is looking forward to discharge so she can return to work and school. denies SI/HI/VH/AH. Pt reports she does not want to go to a program after discharge despite her mother wanting her to do so; pt stated, I'll go to a program during the summer. I don't want to go to another place and feel stuck . T/W spoke with patient's mother, Sara, discussed discharge plan for this week if pt continues to improve. Mother is aware patient does not want to attend program after discharge. 05/31: Active on unit. Social with peers. Medication compliant. Attending groups. 3 day up on 06/01/24. Patient continues to report feeling good ; pt stated, my brother called me yesterday and convinced me to go to a program so I might go . Labs to be drawn tomorrow morning. denies SI/HI/VH/AH. Latuda decreased to 80mg PO daily per patient request. Patient reports she plans on following up with her outpatient providers when discharged. Patient educated on: diagnosis and medication risk/benefits Reason for continued inpatient stay Substantial Risk for: stable for discharge Time Spent With Patient Time: Total time managing care of this patient today _20___ minutes.
[2024-05-31] MEDS: Lurasidone HCl 80 MG TABLET PO (16:57)
[2024-05-31 20:00] VITALS: BP 108/59; PULSE 84; RESP 16; TEMP 36.3; O2SAT 99
[2024-05-31] MEDS: Lithium Carbonate ER 450 MG TABLET.ER 900 MG PO (20:52)
[2024-05-31] MEDS: clonazePAM 1 MG TABLET PO (20:52)
[2024-06-01] MEDS: Nicotine 21 MG PATCH.TD24 TRANSDERMA (07:45)
[2024-06-01] MEDS: Nicotine Polacrilex Lozenge 4 MG LOZENGE BUCCAL (07:45)
[2024-06-01 07:50] VITALS: BP 123/75; PULSE 97; RESP 14; TEMP 36.7; O2SAT 97
[2024-06-01 08:10] LABS: Anion Gap 10 (12-20); Blood Urea Nitrogen 11 mg/dL (9-16); Carbon Dioxide 26 mmol/L (22-29); Chloride 110 mmol/L (96-108); Creatinine Clr Calc Pharmacy 108.2; Estimated Glomerular Filt Rate > 60; Potassium 4.6 mmol/L (3.3-5.1); Sodium 141 mmol/L (135-145)
--- NOTE | 2024-06-01 09:16 | P.DS_ITS ---
DS: Providers Provider Date of Service: 06/01/24 Date of admission: 05/15/24 11:24 Date of discharge: 06/01/24 Primary care physician: Unknown Physician Admitting clinician: Meghan Caban Attending physician on admission: Charli Chu Attending physician on discharge: Charli Chu Discharging clinician: Meghan Caban DS: Diagnosis Discharge Diagnosis (1) Bipolar I disorder with jean: Status: Acute (2) PTSD (post-traumatic stress disorder): Status: Acute DS: Medications Discharge Medications Home Medications: Previous Rx's ?Medication ?Instructions ?Recorded clonazepam 1 mg tablet 1 mg PO BEDTIME 30 days #30 tabs 06/01/24 lithium carbonate 450 mg 900 mg (2 x 450 mg) PO BEDTIME 30 06/01/24 tablet,extended release days #60 tabs lurasidone 80 mg tablet (Latuda) 80 mg PO DAILY@1700 30 days #30 06/01/24 tabs Mental Status Exam Mental Status Exam Narrative: Pt is alert and oriented; behavior is cooperative, friendly and calm; dressed in casual attire; mood is described as good ; eye contact appropriate; Speech is normal rate, volume and not pressured; thought process is organized and goal directed; Thought content is on discharge; denies SI/HI/VH/AH. Data Data Completed and Pending Completed studies during hospitalization [Text1]: 05/29/24 06/01/24 12:35 07:42 WBC 8.8 RBC 4.79 Hgb 14.3 Hct 41.7 MCV 87.1 MCH 29.9 MCHC 34.3 RDW 12.5 Plt Count 332 MPV 9.6 Immature Gran % (Auto) 0.7 H Neut % (Auto) 66.4 Lymph % (Auto) 24.7 [place] % (Auto) 6.5 Eos % (Auto) 1.1 Baso % (Auto) 0.6 Lymph # (Auto) 2.2 [place] # (Auto) 0.6 Eos # (Auto) 0.1 Baso # (Auto) 0.1 Abs Immat Gran (auto) 0.06 H Absolute Neuts (auto) 5.9 Absolute Nucleated RBC 0.000 Nucleated RBC % (auto) 0.0 Sodium 141 141 Potassium 4.0 4.6 Chloride 108 110 H Carbon Dioxide 27 26 Anion Gap 10 L 10 L BUN 9 11 Creatinine 0.94 0.75 Estim Creat Clear Calc 86.4 108.2 Estimated GFR > 60 > 60 Random Glucose 126 H Estimat Average Glucose 100 Hemoglobin A1c % 5.1 Calcium 9.3 D TSH 1.25 [place] 0.28 L 0.70 DS: Summary Hospital Course Hospital Course: Patient patient is a 23-year-old female with history of bipolar disorder and PTSD who presented to ER via section 12 due to manic behavior secondary to increased marijuana use. Per crisis report, patient left parents home at 4am with an Uber to go to the gym. Her mother followed patient to inquire where she was going; patient began pushing mother and provided the horse and wagon driver with a different address than the gym and was not agreeable to return home. Patient's Latuda was recently increased from 40 to 60mg on 05/08/2024 by her outpatient provider. Patient recognizes that she is experiencing a manic episode. She has been smoking marijuana, which intensifies her symptoms. Per patient's mother, patient has been stable since they found the right medication for her. Patient has been experiencing manic symptoms for 8 days. Patient has not been getting enough sleep and smoking marijuana. She presented labile and grandiose during assessment. Referred to Nasim on several occasions stating that she believes she is a female version of Nasim. Per her mother, when patient makes references to Nasim, it means shes having a manic episode. Parents are requesting that medication not be changed at to it took 2 years to find the exact medication which has helped . During admission assessment, patient presents alert and oriented x3. Cooperative. Logical. Grandiose. Observed skipping down the hallway and laughing to self. Patient is able to recognize that she is having a manic episode at this time. Patient stated, I don't take my medications daily. I know I'm having a manic episode. I was using weed consistently and I think that is what started it . Patient making random statements during assessment such as, have you been through this with Dionicio? When asked who she was referring to, patient declined to answer. Patient denies SI/HI/VH/AH. She reports feeling like the female version of Nasim ; patient stated, I try to help people. It helps that I can manage my finances. I have a good credit score . Patient reports she mokes marijuana daily and micro-doses shrooms daily . She reports drinking alcohol 1 to 2 times a week. Denies any history of detox's. She reports history of cutting superficially. History of 1 prior suicide attempt in 2020. Patient reports she is willing to take medications while inpatient. Plan: CV 15 minutes safety check Continue home medications Obtain collateral Encourage groups Discharge planning delusional. grandiose. +AH. +VH. denies SI/HI. Active on unit. medication compliant. Per nursing, slept 3 hours last night. Pt stated, I feel good. Bradly and Dionicio are leaving me gifts. They are the same person. He leaves me food mostly. I asked him to play music and he flushed the toilet. We talk telepat hically . When asked why she was walking around the unit without clothes on last evening; pt stated, I was trying to hard to not be naked. I was following Lucifier from room to room. He knows my purpose is healing . Pt denies side effects from medications. Start: Depakote 250mg PO BID Pt continues similar to yesterday. delusional. grandiose. +AH. +VH. denies SI/HI. Per nursing, slept 6 hours last night. placed on 1:1 safety checks yesterday d/t disorganized behavior. Pt stated, It's so weird that my room is next door to Dionicio. The [place] wedding ceremony is confusing . medication compliant. Spoke to patient's mother yesterday afternoon via phone, reviewed past medication trials; mother was notified of patient starting on Depakote. Pt continues delusional, disorganized. Depakote level 37.6 on 05/18/24. Pt reports she was crawling on the floor and licking things because it's part of the [place] wedding . Continues to talk about Dionicio being on the unit and talking with her. Depakote increased to 500mg PO BID Klonopin decreased to 1mg PO BID keep same treatment. The patient agreed that I can contact her mother at . I lowered her Depakote yesterday after speaking with her parents. Still grossly disorganized. Napping on sensory room floor. states she does not want to go to her room d/t it smelling . Pt continues delusional and disorganized. Depakote level 37.6 on 05/18/24. No reports of patient vomiting the past 2 days. pt was given additional 250mg dose today, however proceeded to vomit 3 hours later. Depakote DC'd. Start [place] 300mg PO BID; monitor for side effects. Klonopin decreased to 1mg PO bedtime and 0.5mg PO daily She continues to talk about Dionicio being on the unit and giving her food. Pt stated, Dionicio is hanging around. I'm not crazy. Everyone knows he's here too . denies SI/HI/VH/AH. per nursing, pt slept 3-4 hours last night. T/W spoke to pt's mother, Sara, regarding treatment plan. Sara reports she is considering having pt go to substance abuse program after discharge for marijuana use. Napping throughout the day. Pt continues delusional however, more organized during conversation. Pt stated, I keep doing Yoga because in my body is strong than Dionicio's body is strong . She denies any side effects from starting [place]; per nursing, pt did not vomit last night or this morning. She reportedly slept 6 hours last night. Continue current tx plan. jean improving on lithium. increase lithium to 450 BID. c/o feeling like a zombie. agreeable to SD HS risperidone and reschedule all latuda to HS. ot [facility] continue current mgmt. case d/w pt's mother on the phone. Active on unit, social with peers. Pt continues delusional; pt stated, I think I'm getting today to the kadi that killed the [employer]. I just want to date him first . She denies any medication side effects, other than feeling tired. per nursing, slept 8 hours. denies SI/HI/VH/AH. DC klonopin 0.5mg PO daily observed dancing around unit. Pt continues delusional; pt stated, I'm supposed to go to the court house today to get . denies any medication side effects. Organized at times during conversation. T/W spoke with patient's mother, Sara, via phone; updated on treatment plan. refuses lithium, continues to present with erotomatic, some restorationist delusions,very impaired insight and judgment. change latuda to dinner time as it requires 350 calories to be absorbed and will increase it to 120mg, which pt agrees with. Cooperative. social with peers. organized during conversation regarding work, treatment and school. However, continues to present with delusions regarding getting to Dionicio ; pt also stated she believes one of the counselors on the unit is Dionicio's father d/t being [place] . pt stated, I think he(the counselor) was told to spend time with me because I'm gong to his son soon . Pt requesting to have lithium switched to bedtime; lithium changed to 900mg PO bedtime. Patient states she is not interested in going to a program after here even though my mom wants me to. I just want to go home when I'm feeling better . Pt reports she is agreeable with having a visiting nurse to help with medication management. Active on unit. Social with peers. Medication compliant. Attending groups. Patient presents improved than days prior; insightful into mental illness. She signed 3-day notice and is requesting to be discharged. 3 day up on 06/01/24. Patient stated, I feel normal. I hate being normal. I like having a tiny bit of jean at all times . Patient did not express any delusional thoughts during conversation. She did have a panic attack when told she would not be getting discharged today; was given Zyprexa 5 mg with positive effect. [place] level 0.28 on 05/29/24. T/W met with patient and mother, Sara, discussed discharge plan for this week if pt continues to improve. Mother is requesting patient to attend program after discharge, however pt is declining and would like to return home. Patient continues agreeable to visiting nurse. Active on unit. Social with peers. Medication compliant. Attending groups. 3 day up on 06/01/24. Patient reports feeling good today; pt stated, I'm going to keep taking my medications when I leave here. I don't want to use any substances. My brain needs to reset . Patient reports she is looking forward to discharge so she can return to work and school. denies SI/HI/VH/AH. Pt reports she does not want to go to a program after discharge despite her mother wanting her to do so; pt stated, I'll go to a program during the summer. I don't want to go to another place and feel stuck . T/W spoke with patient's mother, Sara, discussed discharge plan for this week if pt continues to improve. Mother is aware patient does not want to attend program after discharge. Active on unit. Social with peers. Medication compliant. Attending groups. 3 day up on 06/01/24. Patient continues to report feeling good ; pt stated, my brother called me yesterday and convinced me to go to a program so I might go . Labs to be drawn tomorrow morning. denies SI/HI/VH/AH. Latuda decreased to 80mg PO daily per patient request. Patient reports she plans on following up with her outpatient providers when discharged. Patient reports feeling good and ready to go home ; lithium level 0.70 on 06/01/24. denies SI/HI/VH/AH. Patient agreed to attend program that her mother suggested. Status at Discharge Cognitive/behavioral status at discharge: Patient has insight and demonstrates good judgment in terms of wanting to pursue treatment. Patient has a safety plan that includes presenting to the closest ER or calling 911 if feeling unsafe. Functional status at discharge: independent ambulation Overall status at discharge: patient is back to baseline Time Spent with Patient Time attestation: Total time managing care of this patient today _20___ minutes. Time spent: Less than 30 minutes Discharge Plan Discharge Anticipated Discharge Date/Time: 06/01/24 10:00 Patient Disposition: Home, Self-Care Discharge Diagnosis: Bipolar d/o, PTSD Referrals: Sera Murillo (Psychiatry) [Other] - 06/13/24 1:45 pm (IN OFFICE APPOINTMENT) Nallely Kinney (Therapy) [Other] - 1 Week (*Your therapist is requesting that you call her to discuss any future appointments. Please follow up. ) [facility] [Provider Group] - 06/06/24 8:20 am (your follow up appt has been scheduled for 06-06-24 @ 8:20am Your provider's office scheduled you in the [place] office with Dr. Skinner. fax tn [phone]) Discharge Medications: New lurasidone [Latuda] 80 mg Tablet 80 mg PO DAILY@1700 30 Days Qty: 30 0RF lithium carbonate 450 mg Tablet Extended Release 900 mg PO BEDTIME 30 Days Qty: 60 0RF clonazepam 1 mg Tablet 1 mg PO BEDTIME 30 Days Qty: 30 0RF Discontinued clonazepam 0.5 mg tablet 0.5 - 1 mg PO DAILY PRN (Reason: panic attack) lurasidone 60 mg tablet 60 mg PO QAM Discharge Orders: Discharge Order (Routine); Ordered 06/01/24 Ordered By: Meghan Caban Diet: Regular diet Activity on Discharge: As tolerated Stand Alone Forms: Patient Portal Discharge page, Community Support Print Language: Haitian Care Plan Goals: Maintain mood and safe behaviors Take medications as prescribed Continue to pursue sobriety Practice coping skills Continue with outpatient providers and reach out to them as needed Health Concerns: Mood stability and behaviors Sobriety Plan of Treatment: Follow up with your PCP, psychiatric provider and other outpatient providers regarding above concerns Take medications as prescribed Assessment: Patient has insight and demonstrates good judgment in terms of wanting to pursue treatment. Patient has a safety plan that includes presenting to the closest ER or calling 911 if feeling unsafe. Discharge Date/Time: 06/01/24 10:25
== END 2024-06-01 10:25 | disposition home or self-care (01) | DRG 885 ==
LOC: HO.ED 05-15 11:35 → HO.PADLT16 05-15 12:03
PROVIDERS: Physician Assistant Medical; Admitting Provider Registered Nurse; Emergency Provider Emergency Medicine; Responsible Provider Registered Nurse; Visit Provider Psychiatry & Neurology Psychiatry
DX: F31.10 Bipolar disorder, current episode manic without psychotic features, unspecified (principal); F43.10 Post-traumatic stress disorder, unspecified; Z23 Encounter for immunization; Z20.822 Contact with and (suspected) exposure to COVID-19; Z79.899 Other long term (current) drug therapy
CPT/HCPCS: 0241U; 36415; 80048; 80051; 80053; 80076; 80143; 80164; 80178; 80179; 80307; 81001; 81025; 82140; 82565; 83036; 84443; 84520; 85025; 90656; 93005; 99285; S9485

== ENCOUNTER → 2024-05-12 08:41 | Outpatient (BNV) | payer OTHER, SELFPAY | PROVIDERS: Emergency Provider Emergency Medicine; Visit Provider Social Worker | DX: F31.10 Bipolar disorder, current episode manic without psychotic features, unspecified (principal); F43.10 Post-traumatic stress disorder, unspecified | CPT/HCPCS: 90792; 99232 ==

== ENCOUNTER → 2024-05-14 07:49 | Outpatient (BNV) | payer OTHER, SELFPAY | PROVIDERS: Emergency Provider Emergency Medicine; Visit Provider Internal Medicine | DX: R00.0 Tachycardia, unspecified (principal) | CPT/HCPCS: 93010 ==